=== PATIENT | male | born 1945 | race Caucasian/White ===

== ENCOUNTER 2022-04-30 16:32 | Observation (INO) ==
[2022-04-30 17:10] LABS: Hematocrit (blood only) 40.8 % (40.1-51.0); Hemoglobin 13.9 g/dl (14.0-18.0); Mean Corpuscular Hemoglobin 29.5 pg (25.0-34.0); Mean Corpuscular Hgb Conc 34.1 g/dL (32.0-36.0); Mean Corpuscular Volume 86.6 fL (80.0-100.0); Mean Platelet Volume 10.3 fL (9.4-12.4); Platelet Count 175 K/uL (130-400); RDW Coefficient of Variation 14.2 % (11.5-14.5); RDW Standard Deviation 44.8 fL (36.4-46.3); Red Blood Count 4.71 M/uL (4.63-6.08); White Blood Count 8.39 K/ul (4.8-10.8)
[2022-04-30 17:25] LABS: INR 1.1 (0.9-1.1); Partial Thromboplastin Time 28.8 Seconds (21.0-31.0); Prothrombin Time 11.3 Seconds (9.0-12.0)
[2022-04-30 17:38] LABS: Albumin Globulin Ratio 1.3 (0.9-2); Albumin Level 4.1 gm/dl (3.4-5.0); BUN Creatinine Ratio 23.6 (10-20); Bilirubin,Total 0.7 mg/dl (0.2-1.0); Calcium 9.5 mg/dl (8.5-10.1); Creatinine Clr Calc Pharmacy 89.5 ml/min; Est GFR (African American) 96.9 ml/min; Est GFR (Non-African American) 83.6 ml/min; Globulin 3.1 gm/dl (2.5-4.0); Magnesium 2.1 mg/dl (1.7-2.4); Potassium 4.5 mmol/L (3.5-5.1); Total Protein 7.2 gm/dl (6.0-8.3)
--- NOTE | 2022-04-30 17:41 | CT Scan Report ---
HEAD CT NONCONTRAST CT DOSE: 614.27 mGy.cm HISTORY: headache, dizziness x3 days TECHNIQUE: Multiaxial CT images of the head were performed without the use of intravenous contrast. A utomated exposure control was utilized for this study. A dose lowering technique was utilized adheri ng to the principles of ALARA. Comparison: None. Findings: The paranasal sinuses and mastoid air cells are clear. The calvarium and skull base are int act. There is no mass, hematoma, midline shift, acute infarct. White matter hypodensity is nonspecifi c but suggestive of microvascular ischemic change. The ventricles and sulci demonstrate mild age-rela raquel involutional changes. Impression: No acute intracranial abnormality. Atrophy and microvascular ischemic changes. ACT 112: Negative or not required by law. Electronically signed by: Tam Olsen M.D. 04/30/2022 5:40 PM
--- NOTE | 2022-04-30 18:39 | XRay Report ---
XR chest 1V portable HISTORY: dizziness, weakness COMPARISON: Chest 12/09/2020. FINDINGS: The lungs are clear. Cardiac silhouette is normal in size. No pleural effusions. No pneumot horax. Right shoulder prosthesis. Degenerative changes within the left shoulder. IMPRESSION: No acute process. ACT 112: Negative or not required by law. Electronically signed by: Tam Olsen M.D. 04/30/2022 6:37 PM
--- NOTE | 2022-04-30 18:51 | Emergency Department Note ---
Impression & Plan Stroke-like symptoms, Leg weakness, Headache ED Provider Note INFORMANT: Patient and significant other ED PROVIDER(S): Buck Walker MD CHIEF COMPLAINT: Strokelike symptoms PLAN: Disposition: Admitted Condition: Good Outpatient prescription management: none Referral: None MEDICAL DECISION MAKING: Patient presented due to concerns about stroke from PCP. On physical examination he did have asymmetric weakness in the lower extremities. Did not have any significant complaints of back pain or any neck pain. He did note a headache. He does not have a fever. He is not meningitic on examination. The patient had a negative head CT. His CBC, chemistry panel and LFTs were unrema rkable. Given the ambulatory issues and asymmetric weakness coupled with a headache further management in the hospital was deemed appropriate. Patient and are in agreement. [facility] The patient was evaluated in the ER and admitted for further management. Triage Nursing notes reviewed and agree them. Vital Signs: reviewed and remarkable for bradycardia. Record review indicates this is not changed from prior. Differential diagnosis: CVA, TIA, infection, dehydration, metabolic abnormality, hypo/hyperglycemia, electrolyte disturbance, anemia, hypoxia, cardiac sources, intracerebral event, toxicologic, neurologic, as well as other pathologies. Diagnostics interpreted by me: ECG: Twelve-lead ECG reveals sinus bradycardia 53 bpm. Sinus arrhythmia present. First-degree AV block. Right bundle branch block. No elevation. Cardiac Monitoring: Cardiac monitoring ordered by me: The patient was placed on continuous cardiac monitoring and observed. It revealed a sinus bradycardia at 48 bpm. Imaging studies: Head CT: A noncontrast CT scan of the head was performed and was negative for tumor, fracture, intracranial hemorrhage, or other acute pathology. HPI: The patient is a 76 year old male who presents to the Emergency Room with complaints of headache and weakness. This started about 3 days ago and is stable but persisting. The patient also notes the following associated symptoms, difficulty walking. The patient has found no relieving factors. Current pain is rated as 6/10. Patient states that he has been using ibuprofen intermittently. He denies any trauma. He was seen by his PCP and there was concerned about stroke due to weakness and ambulatory issues. Patient does have neuropathy but notes no changes there in the lower extremities. Pt denies LOC, fevers, chills, diaphoresis, visual changes, neck pain, chest pain, breathing difficulties, nausea, vomiting, abdominal pain, back pain, melena, hematochezia, urinary symptoms, lymphadenopathy, rash, or other complaints. ROS: See above HPI for pertinent positives & negatives. A total of 10 systems reviewed and were otherwise negative. PAST MEDICAL HISTORY:See Below , hypertension PAST SURGICAL HISTORY:See Below, FAMILY HISTORY:See Below SOCIAL HISTORY:See Below, HOME MEDICATIONS:See Below ALLERGIES:See Below VITALS:See Below PHYSICAL EXAMINATION: GENERAL: Awake, alert, well-appearing, in no distress HENT: Normocephalic, atraumatic. Oropharynx unremarkable. EYES: Normal conjunctiva. Sclera non-icteric. PERRLA. EOMI. NECK: Inspection normal. Non-tender. Supple. No nuchal rigidity. FROM. No m asses. RESPIRATORY: Clear to auscultation. No wheezes. No rales. Normal respiratory effort. CARDIAC: Normal rate. Normal rhythm. No murmurs. No rubs. Extremities warm and well perfused. Pulses equal. No JVD. GI: Soft, non-distended. No tenderness to palpation. No rebound or guarding. No masses. RECTAL: Deferred. MUSCULOSKELETAL: Atraumatic. Chest examination reveals no tenderness. The back is symmetrical on inspection without obvious abnormality. There is no CVA tenderness to palpation. No joint edema. LOWER EXTREMITIES: Calves are equal size bilaterally and non-tender. No edema. No discoloration. NEURO: Normal sensorium. Subjective tingling noted in both feet. There is some mild weakness in the left leg however more moderate weakness noted in the right leg. Slight drift. No upper extremity drift. Cranial nerves II through XII intact. SKIN: No rash or jaundice noted. Buck Walker MD Past Med/Surg History Medical History (Updated 04/30/22 @ 20:27 by Radha Juan PA-C) Anxiety and depression Bradycardia Generalized osteoarthritis Hearing difficulty History of syncope Remote episode several years ago > felt "related to dehydration" Hyperlipidemia Hypertension Macular degeneration Neuropathy PTSD (post-traumatic stress disorder) Surgical History H/O colonoscopy Colonoscopy (09/25/21): MAC at [facility]. Repeat 5 yrs H/O eye surgery MACULAR PUCKER H/O sinus surgery History of arthroscopy LEFT KNEE History of cataract surgery RT History of cholecystectomy History of herniorrhaphy History of knee replacement LEFT History of tonsillectomy History of tooth extraction S/P hip replacement LEFT Status post reverse total replacement of right shoulder (~12/2021) Family History Mother Liver cancer Colorectal cancer Father Pancreatic cancer Uncle Myocardial infarction Other No family history of adverse response to anesthesia Denies family history of Ovarian cancer Prostate cancer Diabetes Breast cancer Lung cancer Stroke Social History Smoking Status: Never smoker Second Hand Exposure: No; Hx Alcohol Use: No Hx Substance Use: No Preferred Language: Serbian Communication Ability: Effective Visual Impairment: Limited Hearing Ability: Normal Patrol Mother Required: No Beliefs That Will Affect Care: None marital status: Current Living Situation: Spouse current occupational status: retired How many Children do You have: 0 How many Children do You have Comment: 3 step children Feels Safe at Home: Yes Safety Concerns: Feels Safe At This Time Childhood Exposure to Second-Hand Smoke: Yes caffeine: Yes Dental Care, Regularly: No Physical Activity Frequency: Daily Physical Activity Frequency Comment: walks twice a day Seatbelt Use: always Sunscreen Use: No (wears a hat) Assistive Devices: None Allergies Allergies Allergy/AdvReac Type Severity Reaction Status Date / Time Penicillins Allergy Severe Anaphylaxis Verified 04/30/22 15:16 oxycodone AdvReac gi upset Verified 04/30/22 15:16 Home Meds Home Medications Medication Instructions Recorded Confirmed vit C 250 mg-vit E 90 mg-zinc 40 1 tab PO BID 04/30/19 04/30/22 mg-copper 1 [id number] capsule (PreserVision AREDS-2) atorvastatin 20 mg tablet 20 mg PO QAM 09/21/21 04/30/22 folic acid 1 mg tablet 1 mg PO QAM 09/21/21 04/30/22 ibuprofen 200 mg tablet (Advil) 200 mg PO QAM 09/21/21 04/30/22 sertraline 100 mg tablet (Zoloft) 200 mg PO QAM 09/21/21 04/30/22 valsartan 160 mg tablet 160 mg PO QAM 09/21/21 04/30/22 cholecalciferol (vitamin D3) 50 50 mcg PO QAM 11/26/21 04/30/22 mcg (2,000 unit) capsule naltrexone 50 mg tablet 50 mg PO QAM 11/26/21 04/30/22 omega-3 fatty acids 2,000 mg PO QAM 11/26/21 04/30/22 Previous Rx's Medication Instructions Recorded thiamine HCl (vitamin B1) 100 mg 100 mg PO QAM #90 tabs 01/05/21 tablet cyanocobalamin (vitamin B-12) 1,000 mcg subcut MONTHLY #1 ea 06/08/21 1,000 mcg/mL injection kit amlodipine 10 mg tablet 10 mg PO QAM #90 tabs 01/19/22 Results & Data (ED) Vital Signs Vital Signs - 24 hr 04/30/22 16:41 04/30/22 18:12 Temperature 36.4 C L Temperature Source Oral Pulse Rate 58 L Pulse Rate [Left Finger] 48 L Respiratory Rate 18 17 Respiratory Effort / Characteristics Non-Labored Non-Labored Respiratory Depth Normal Normal Blood Pressure 107/68 Blood Pressure [Right Arm] 129/64 Blood Pressure Mean 81 Blood Pressure Mean [Right Arm] 85 Blood Pressure Position Sitting Pulse Oximetry 94 95 Oxygen Delivery Method Room Air Room Air Sepsis Recent Fever Within 48 Hours No Sepsis New/Unexplained Change in Mental Status No Sepsis Action Taken by Nursing No Action Required Laboratory Data Result diagrams: 04/30/22 17:02 04/30/22 17:02 Lab Results 04/30/22 04/30/22 04/30/22 Range/Units 17:02 17:02 17:02 WBC 8.39 (4.8-10.8) K/ul RBC 4.71 (4.63-6.08) M/uL Hgb 13.9 L (14.0-18.0) g/dl Hct 40.8 (40.1-51.0) % MCV 86.6 (80.0-100.0) fL MCH 29.5 (25.0-34.0) pg MCHC 34.1 (32.0-36.0) g/dL RDW Std Deviation 44.8 (36.4-46.3) fL RDW Coeff of Donnell 14.2 (11.5-14.5) % Plt Count 175 (130-400) K/uL MPV 10.3 (9.4-12.4) fL PT 11.3 (9.0-12.0) Seconds INR 1.1 (0.9-1.1) APTT 28.8 (21.0-31.0) Seconds PTT Ratio 1.0 Sodium 140 (136-145) mmol/L Potassium 4.5 (3.5-5.1) mmol/L Chloride 107 (98-107) mmol/L Carbon Dioxide 25 (21-32) mmol/L Anion Gap 8 (3-11) BUN 21 (6-23) mg/dl Creatinine 0.89 (0.6-1.4) mg/dl Est Cr Clr Drug Dosing 89.5 ml/min Est GFR ( Amer) 96.9 ml/min Est GFR (Non-Af Amer) 83.6 ml/min BUN/Creatinine Ratio 23.6 H (10-20) Glucose 95 (70-99(Fasting)) mg/dl Calcium 9.5 (8.5-10.1) mg/dl Magnesium 2.1 (1.7-2.4) mg/dl Total Bilirubin 0.7 (0.2-1.0) mg/dl AST 20 (13-39) U/L ALT 14 (7-52) U/L Alkaline Phosphatase 77 (34-104) U/L Total Protein 7.2 (6.0-8.3) gm/dl Albumin 4.1 (3.4-5.0) gm/dl Globulin 3.1 (2.5-4.0) gm/dl Albumin/Globulin Ratio 1.3 (0.9-2) TSH (0.300-4.500) uIu/ml Lyme Disease IgG Ab (Negative) Lyme Disease IgM Ab (Negative) SARS-CoV-2 (PCR) SARS-CoV-2, RNA, NAAT (NEGATIVE) 04/30/22 04/30/22 04/30/22 Range/Units 17:02 17:02 18:10 WBC (4.8-10.8) K/ul RBC (4.63-6.08) M/uL Hgb (14.0-18.0) g/dl Hct (40.1-51.0) % MCV (80.0-100.0) fL MCH (25.0-34.0) pg MCHC (32.0-36.0) g/dL RDW Std Deviation (36.4-46.3) fL RDW Coeff of Donnell (11.5-14.5) % Plt Count (130-400) K/uL MPV (9.4-12.4) fL PT (9.0-12.0) Seconds INR (0.9-1.1) APTT (21.0-31.0) Seconds PTT Ratio Sodium (136-145) mmol/L Potassium (3.5-5.1) mmol/L Chloride (98-107) mmol/L Carbon Dioxide (21-32) mmol/L Anion Gap (3-11) BUN (6-23) mg/dl Creatinine (0.6-1.4) mg/dl Est Cr Clr Drug Dosing ml/min Est GFR ( Amer) ml/min Est GFR (Non-Af Amer) ml/min BUN/Creatinine Ratio (10-20) Glucose (70-99(Fasting)) mg/dl Calcium (8.5-10.1) mg/dl Magnesium (1.7-2.4) mg/dl Total Bilirubin (0.2-1.0) mg/dl AST (13-39) U/L ALT (7-52) U/L Alkaline Phosphatase (34-104) U/L Total Protein (6.0-8.3) gm/dl Albumin (3.4-5.0) gm/dl Globulin (2.5-4.0) gm/dl Albumin/Globulin Ratio (0.9-2) TSH 1.294 (0.300-4.500) uIu/ml Lyme Disease IgG Ab Negative (Negative) Lyme Disease IgM Ab Negative (Negative) SARS-CoV-2 (PCR) Cancelled SARS-CoV-2, RNA, NAAT (NEGATIVE) 04/30/22 Range/Units 18:30 WBC (4.8-10.8) K/ul RBC (4.63-6.08) M/uL Hgb (14.0-18.0) g/dl Hct (40.1-51.0) % MCV (80.0-100.0) fL MCH (25.0-34.0) pg MCHC (32.0-36.0) g/dL RDW Std Deviation (36.4-46.3) fL RDW Coeff of Donnell (11.5-14.5) % Plt Count (130-400) K/uL MPV (9.4-12.4) fL PT (9.0-12.0) Seconds INR (0.9-1.1) APTT (21.0-31.0) Seconds PTT Ratio Sodium (136-145) mmol/L Potassium (3.5-5.1) mmol/L Chloride (98-107) mmol/L Carbon Dioxide (21-32) mmol/L Anion Gap (3-11) BUN (6-23) mg/dl Creatinine (0.6-1.4) mg/dl Est Cr Clr Drug Dosing ml/min Est GFR ( Amer) ml/min Est GFR (Non-Af Amer) ml/min BUN/Creatinine Ratio (10-20) Glucose (70-99(Fasting)) mg/dl Calcium (8.5-10.1) mg/dl Magnesium (1.7-2.4) mg/dl Total Bilirubin (0.2-1.0) mg/dl AST (13-39) U/L ALT (7-52) U/L Alkaline Phosphatase (34-104) U/L Total Protein (6.0-8.3) gm/dl Albumin (3.4-5.0) gm/dl Globulin (2.5-4.0) gm/dl Albumin/Globulin Ratio (0.9-2) TSH (0.300-4.500) uIu/ml Lyme Disease IgG Ab (Negative) Lyme Disease IgM Ab (Negative) SARS-CoV-2 (PCR) SARS-CoV-2, RNA, NAAT NEGATIVE (NEGATIVE) Administered Medications Discontinued Medications Acetaminophen (Acetaminophen 325 Mg Tab) 650 mg PO NOW STA Stop: 04/30/22 20:35 Last Admin: 04/30/22 20:47 Dose: 650 mg Documented By: SHANE Gadobutrol (Gadobutrol 65ml Vial) 10 ml IV ONCE ONE Stop: 05/01/22 00:07 Last Admin: 05/01/22 00:06 Dose: 10 ml Documented By: RADHA Imaging Data Radiologist's Impression: Chest X-Ray 04/30/22 16:47 XR chest 1V portable HISTORY: dizziness, weakness COMPARISON: Chest 12/09/2020. FINDINGS: The lungs are clear. Cardiac silhouette is normal in size. No pleural effusions. No pneumothorax. Right shoulder prosthesis. Degenerative changes within the left shoulder. IMPRESSION: No acute process. ACT 112: Negative or not required by law. Electronically signed by: Tam Olsen M.D. 04/30/2022 6:[address] 04/30/22 16:[address] DOSE: 614.27 mGy.cm HISTORY: headache, dizziness x3 days TECHNIQUE: Multiaxial CT images of the head were performed without the use of intravenous contrast. Automated exposure control was utilized for this study. A dose lowering technique was utilized adhering to the principles of ALARA. Comparison: None. Findings: The paranasal sinuses and mastoid air cells are clear. The calvarium and skull base are intact. There is no mass, hematoma, midline shift, acute infarct. White matter hypodensity is nonspecific but suggestive of microvascular ischemic change. The ventricles and sulci demonstrate mild age-related involutional changes. Impression: No acute intracranial abnormality. Atrophy and microvascular ischemic changes. ACT 112: Negative or not required by law. Electronically signed by: Tam Olsen M.D. 04/30/2022 5:40 PM Discharge Plan Visit Data Chief Complaint: Referred by Doctor Stated Complaint: REF BY , HEADACHE, DIZZINESS ED Provider: Buck Walker Discharge Problem: Stroke-like symptoms, Leg weakness, Headache Patient Disposition: Admitted As Inpatient Discharge Instructions Interventions: ED Discharge Assessment Last Done: 04/30/22 22:12
--- NOTE | 2022-04-30 18:59 | History & Physical Report ---
Date of Service April 30, 2022 Assessment & Plan (1) Stroke-like symptoms: Plan: - Presented upon referral for PCP for concerns for stroke due to 3 days of headache, left lower extremity weakness, abnormal gait. - Here, patient has slight LLE weakness, slight difficulty with left heel to little however he has a hip and knee replacement on this side so it seems more like a mechanical limitation rather than actual weakness. He reports a slight decrease in sensation on R face, arm, and leg. He has no other neuro findings on exam suspicious for a TIA/CVA. Given the symptoms have been going on for days, would except to see evidence of a stroke on CT. His decreased sensation and gait abnormalities seem to be more consistent with a neuropathy. No history of cancer to raise concern for brain met dz. No back pain or leg numbness/tingling to indicate radiculopathy. - CT without contrast in ED without evidence of acute process, including hemorrhage, mass, midline shift, ischemic infarct. - MRI with MRA head/neck tomorrow. - Echo in a.m. - CBC, BMP, HbA1c, lipid panel in a.m. - PT, OT to evaluate in a.m. - Patient is already on a statin, will increase dose based on lipid panel in AM. - Telemetry for 24 hours, evaluate for episodes of atrial fibrillation. - Consult placed to neurology to evaluate patient for CVA vs neuropathy. - With reports of right eye transient monocular vision loss ~ 1 month ago, will check ESR with AM labs. If elevated without other cause, could place patient on trial of steroids. - Checking TSH, B12, folate, lyme for other possible causes of REDDY/fatigue/neuropathy. (2) Headache: Plan: - b/l, throbbing, persistent 7/10 for at least 3 days. Without visual changes, headache, neck stiffness, meningeal signs. Did have transient right monocular vision loss 1 month ago. - ESR with morning labs to workup possible temporal arteritis/PMR. - PRN Tylenol, with a dose ordered in ED. Looking to avoid opioids. Holding off on NSAIDs now while pursuing CVA workup. (3) Neuropathy: Plan: - Continue B12 supplementation. Patient also was doing acupuncture for this at one point, planning to restart as it has previously helped. - CBC, CMP, lyme, TSH all wnl. - PT/OT to eval patient. (4) Bradycardia: Plan: - HR in 4050s, per previous records, symptoms baseline since the beginning of the year. He has been generally weak for a couple weeks, however denies lightheadedness, dizziness, presyncope or syncope, chest pain, shortness of breath. - EKG today with sinus bradycardia and first-degree AV block, right bundle branch block which was also seen on EKG from November. - Check for Lyme as above--negative. (5) Hypertension: Plan: - Patient notes his blood pressures this week have been quite high, consistently above 140, usually in the [id number] range occasionally systolic over 200. - Normotensive here, 138/69 now. - Continue on valsartan 160 mg daily, Norvasc 10 mg daily. (6) Hyperlipidemia: Plan: - Continue atorvastatin 20 gm daily. (7) Depression: Plan: - With PTSD, anxiety. [facility] - History of insomnia, although not currently requiring any medications for this. - Continue Zoloft 200 mg daily. (8) Alcohol use disorder: Plan: - Last drink 10 months ago. - Continue B12 (IM injections monthly) and folate supplementation, will check these levels in a.m. - Continue naltrexone. (9) Fatty liver: Plan: - History of, with previous alcohol abuse. - LFTs within normal limits. Continue to follow with AM labs. Plan - Admit to med/tele. - SCDS for VTE ppx. - Full Code. History of Present Illness Chief Complaint: ongoing headache, gait abnormality, fatigue Primary Care Provider: Olu Magallanes DO Reynold Yeung is a 76-year-old male with a PMH significant for hypertension, hyperlipidemia, PTSD, depression, anxiety, alcohol use disorder, fatty liver disease who presents today as a recommendation of his PCP for trouble walking and headache. He has had a constant, throbbing bilateral headache for the past 3 days above and behind his eyes. He is not getting any worse or better. He has tried drinking water, sleeping, and Tylenol at home without any alleviation. He is also been getting more fatigued for the past several days, noting that he is not keeping up with his as he used to do when walking the dog and is sleeping throughout the night and then between lunch and dinner, still feeling fatigued despite this. He has bilateral lower extremity numbness and has been evaluated and treated for neuropathy previously, currently getting B12 supplementations and previously benefitted from acupuncture. He feels it was better at one time, but is now getting worse again. He also describes a gait disturbance, stating he is walking "funny" and has a hard time picking his feet up getting it over the rugs in his home. He is outside a lot but denies known tick bites, rash, fever/chills. He has not noticed any focal weakness or numbness, denies speech difficulties, vomiting. He had an incident of transient right vision loss maybe about a month ago in the middle of the night he was getting up to the bathroom, however her woke up and vision was back at his baseline has not had recurrence. He has not had any falls. His blood pressures been elevated at home, systolic between [id number], occasionally near 200. He denies chest pain, palpitation, shortness of breath, cough. Upon presentation to the ED, he HR 4050s, per previous records this is baseline for the past year. Normotensive, SPO2 >95% on room air, afebrile. Labs significant for Hgb 13.1, about baseline. Labs otherwise unremarkable, no leukocytosis, electrolyte abnormalities, renal function at baseline, without transaminitis. Lyme is pending. CT unremarkable for acute process, specifically no evidence of mass, hemorrhage, midline shift, acute infarct. Nonspecific age- related microvascular changes and atrophy are seen. CXR without evidence for acute process. Allergies Allergy/AdvReac Type Severity Reaction Status Date / Time Penicillins Allergy Severe Anaphylaxis Verified 04/30/22 15:16 oxycodone AdvReac gi upset Verified 04/30/22 15:16 Home Medications Medication Instructions Recorded Confirmed Type vit C 250 mg-vit E 90 mg-zinc 40 1 tab PO BID 04/30/19 04/30/22 History mg-copper 1 [id number] capsule (PreserVision AREDS-2) thiamine HCl (vitamin B1) 100 mg 100 mg PO QAM #90 tabs 01/05/21 04/30/22 Rx tablet cyanocobalamin (vitamin B-12) 1,000 mcg subcut MONTHLY #1 ea 06/08/21 04/30/22 Rx 1,000 mcg/mL injection kit atorvastatin 20 mg tablet 20 mg PO QAM 09/21/21 04/30/22 History folic acid 1 mg tablet 1 mg PO QAM 09/21/21 04/30/22 History ibuprofen 200 mg tablet (Advil) 200 mg PO QAM 09/21/21 04/30/22 History sertraline 100 mg tablet (Zoloft) 200 mg PO QAM 09/21/21 04/30/22 History valsartan 160 mg tablet 160 mg PO QAM 09/21/21 04/30/22 History cholecalciferol (vitamin D3) 50 50 mcg PO QAM 11/26/21 04/30/22 History mcg (2,000 unit) capsule naltrexone 50 mg tablet 50 mg PO QAM 11/26/21 04/30/22 History omega-3 fatty acids 2,000 mg PO QAM 11/26/21 04/30/22 History amlodipine 10 mg tablet 10 mg PO QAM #90 tabs 01/19/22 04/30/22 Rx gabapentin 100 mg capsule 100 mg PO BID 5 days #10 caps 05/01/22 Rx Past Med/Surg History Medical History Anxiety and depression Bradycardia Generalized osteoarthritis Hearing difficulty History of syncope Remote episode several years ago > felt "related to dehydration" Hyperlipidemia Hypertension Macular degeneration Neuropathy PTSD (post-traumatic stress disorder) Surgical History H/O colonoscopy Colonoscopy (09/25/21): MAC at [facility]. Repeat 5 yrs H/O eye surgery MACULAR PUCKER H/O sinus surgery History of arthroscopy LEFT KNEE History of cataract surgery RT History of cholecystectomy History of herniorrhaphy History of knee replacement LEFT History of tonsillectomy History of tooth extraction S/P hip replacement LEFT Status post reverse total replacement of right shoulder (~12/2021) Family History Mother Liver cancer Colorectal cancer Father Pancreatic cancer Uncle Myocardial infarction Other No family history of adverse response to anesthesia Denies family history of Ovarian cancer Prostate cancer Diabetes Breast cancer Lung cancer Stroke Social History Smoking Status: Never smoker Second Hand Exposure: No; Hx Alcohol Use: No Hx Substance Use: No Preferred Language: Sinhala Communication Ability: Effective Visual Impairment: Limited Hearing Ability: Normal Personnel Manager Required: No Beliefs That Will Affect Care: None marital status: Current Living Situation: Spouse current occupational status: retired How many Children do You have: 0 How many Children do You have Comment: 3 step children Feels Safe at Home: Yes Childhood Exposure to Second-Hand Smoke: Yes caffeine: Yes Dental Care, Regularly: No Physical Activity Frequency: Daily Physical Activity Frequency Comment: walks twice a day Seatbelt Use: always Sunscreen Use: No (wears a hat) Assistive Devices: None Review of Systems Review of Systems: Constitutional: general weakness and fatigue; no fever/chills, myalgias, anorexia, night sweats Eyes: right eye transient vision loss x 1 month ago without recurrence; No diplopia, no worsening or blurred vision ENT: normal hearing, no trouble swallowing Respiratory: No cough, sputum, dyspnea at rest or on exertion Cardiovascular: No chest pain, tightness or palpitations Abdomen: No pain, nausea, vomiting, diarrhea or constipation : Denies dysuria, hematuria, increased urgency/frequency, urinary retention Musculoskeletal: difficulty walking, b/l LE numbness; No joint pain, calf pain, swelling Neurologic: No focal weakness or balance problems Psychiatric: No anxiety or depression Skin: No rash or itch Physical Exam Physical Exam: General: awake, alert, no apparent distress Head: Normocephalic, atraumatic ENT: PERRL, EOMI, no pharyngeal exudate, mucous membranes moist Chest: Clear to auscultation, on room air, no adventitious breath sounds Cardiac: bradycardic rate and rhythm, no murmur, no JVD, normal peripheral pulses, good capillary refill Abdominal: NABS x 4 quadrants, soft, nontender to palpation, no rebound, guarding or tenderness Extremities: Normal inspection, no peripheral edema or erythema, calfs nontender to palpation Psych: Normal mood and affect Neuro: AAO x 3, strength intact bilaterally and rated 5/5, no motor deficits, speech is clear, L > R sensation Skin: no rash or erythema Results & Data Results & Data ([facility]) Vital Signs (Past 12 Hours) Vital Signs Temp Pulse Pulse Resp BP BP Pulse Ox 04/30/22 18:12 48 L 17 129/64 95 04/30/22 16:41 36.4 C L 58 L 18 107/68 94 O2 Del Method 04/30/22 18:12 Room Air 04/30/22 16:41 Room Air Laboratory Results Abnormal lab results 04/30/22 04/30/22 Range/Units 17:02 17:02 Hgb 13.9 L (14.0-18.0) g/dl BUN/Creatinine Ratio 23.6 H (10-20) Diagnostic Findings Chest X-Ray 04/30/22 16:47 XR chest 1V portable HISTORY: dizziness, weakness COMPARISON: Chest 12/09/2020. FINDINGS: The lungs are clear. Cardiac silhouette is normal in size. No pleural effusions. No pneumothorax. Right shoulder prosthesis. Degenerative changes within the left shoulder. IMPRESSION: No acute process. ACT 112: Negative or not required by law. Electronically signed by: Tam Olsen M.D. 04/30/2022 6:[address] 04/30/22 16:[address] DOSE: 614.27 mGy.cm HISTORY: headache, dizziness x3 days TECHNIQUE: Multiaxial CT images of the head were performed without the use of intravenous contrast. Automated exposure control was utilized for this study. A dose lowering technique was utilized adhering to the principles of ALARA. Comparison: None. Findings: The paranasal sinuses and mastoid air cells are clear. The calvarium and skull base are intact. There is no mass, hematoma, midline shift, acute infarct. White matter hypodensity is nonspecific but suggestive of microvascular ischemic change. The ventricles and sulci demonstrate mild age-related involutional changes. Impression: No acute intracranial abnormality. Atrophy and microvascular ischemic changes. ACT 112: Negative or not required by law. Electronically signed by: Tam Olsen M.D. 04/30/2022 5:40 PM ECG Additional Comments: Sinus bradycardia with marked sinus arrhythmia with 1st degree A-V block Right bundle branch block Abnormal ECG When compared with ECG of 09-DEC-2021 10:50, No significant change was found. Code Status & VTE Plan Code Status Full Code. Supervising Physician Co-Signing Physician Notes Attending addendum: I have physically seen this patient, have supervised the SE's activities, and agree with the H&P unless as otherwise noted. Assessment and Plan: Strokelike symptoms- The patient will be admitted to telemetry for serial cardiac enzymes, serial EK G's, cardiac rhythm monitoring and a 2-D echocardiogram with Dopplers. CT head without contrast negative for acute process MRI/MRA ordered and pending Stroke that tPA order set Consult PT/OT/speech/neurology History of monocular vision loss approximately 1 month ago, would be concerned about possible PMR/temporal arteritis Trial of steroids may be indicated if headache symptoms persist, or should develop recurrent visual symptoms Neurology consult as noted Hypertension- Continue valsartan and Norvasc. Permissive hypertension not indicated Remaining orders and notations as noted PG Care Time/CCT Total # of Minutes Spent Total Time Spent with Patient: Total time spent is greater than 50% in coordination of care (as documented) at patient's floor/unit and/or counseling patient: Coding Level of Care Code 42834 Initial Inpt Care Lvl 3 Diagnoses Stroke-like symptoms R29.90 Headache R51.9 Neuropathy G62.9 Bradycardia R00.1 Hypertension I10 Hyperlipidemia E78.5 Depression F32.9 Alcohol use disorder Fatty liver K76.0
[2022-04-30 19:46] LABS: Appearance Urine Clear (Clear); Bilirubin Urine Negative (Negative); Blood Urine Negative (Negative); Color Urine Dark Yellow; Glucose Urine UA Negative (Negative); Ketones Urine Trace (Negative); Leukocyte Esterase Urine Negative (Negative); Nitrite Urine Negative (Negative); Protein Urine Negative (Negative); Specific Gravity Urine 1.027 (1.000-1.030); Urobilinogen Urine Negative (Negative); pH Urine 5.5 (4.5-7.5)
[2022-04-30 19:55] LABS: Lyme Ab IgG w/WB Rflx Negative (Negative); Lyme Ab IgM w/WB Rflx Negative (Negative)
[2022-04-30] MEDS ORDERED: ACETAMINOPHEN 325 MG TAB PO STA (20:34)
[2022-04-30] MEDS ORDERED: ONDANSETRON INJ 2 MG/ML 2 ML VIAL IV PRN (22:00)
[2022-04-30] MEDS ORDERED: ACETAMINOPHEN 325 MG TAB PO PRN (22:00)
[2022-04-30] MEDS ORDERED: PHARMACIST DISCHARGE MED REC CONSULT PRN (22:00)
[2022-04-30] MEDS ORDERED: POLYETHYLENE (MIRALAX) 17 GM PACK PO PRN (22:00)
[2022-05-01] MEDS ORDERED: GADOBUTROL 65ML VIAL IV ONE (00:06)
[2022-05-01 05:56] LABS: Alanine Aminotransferase 13 U/L (7-52); Albumin Globulin Ratio 1.5 (0.9-2); Albumin Level 3.7 gm/dl (3.4-5.0); Alkaline Phosphatase 69 U/L (34-104); Anion Gap 6 (3-11); Aspartate Aminotransferase 17 U/L (13-39); BUN Creatinine Ratio 24.7 (10-20); Bilirubin,Total 0.6 mg/dl (0.2-1.0); Blood Urea Nitrogen 19 mg/dl (6-23); C Reactive Protein < 0.50 mg/dl (0-0.5); Carbon Dioxide 28 mmol/L (21-32); Chloride 108 mmol/L (98-107); Chol HDL Ratio 2.9 (0-5); Cholesterol 97 mg/dl (0-200); Creatinine Clr Calc Pharmacy 103.3 ml/min; Est GFR (African American) 102.9 ml/min; Est GFR (Non-African American) 88.8 ml/min; Globulin 2.5 gm/dl (2.5-4.0); Glucose 101 mg/dl (70-99(Fasting)); HDL Cholesterol 34 mg/dl; LDL Cholesterol Calculated 50 mg/dl; Potassium 4.1 mmol/L (3.5-5.1); Sodium 142 mmol/L (136-145); Total Protein 6.2 gm/dl (6.0-8.3); Triglycerides 65 mg/dl (0-150); VLDL Cholesterol 13 mg/dl (0-30)
[2022-05-01 06:10] LABS: Folate (Folic Acid) > 22.30 ng/ml (>5.38)
[2022-05-01 06:11] LABS: Vitamin B12 547 pg/ml (180-914)
[2022-05-01 06:29] LABS: Basophils # (auto) 0.06 K/uL (0-0.2); Eosinophils % (auto) 1.7 %; Hematocrit (blood only) 38.1 % (40.1-51.0); Hemoglobin 12.7 g/dl (14.0-18.0); Immature Granulocytes # (auto) 0.01 K/uL (0.00-0.02); Immature Granulocytes % (auto) 0.2 %; Lymphocytes # (auto) 1.93 K/uL (1.2-3.4); Lymphocytes % (auto) 33.2 %; Mean Corpuscular Hemoglobin 28.7 pg (25.0-34.0); Mean Corpuscular Hgb Conc 33.3 g/dL (32.0-36.0); Mean Corpuscular Volume 86.2 fL (80.0-100.0); Monocytes % (auto) 8.6 %; Neutrophils # (auto) 3.22 K/uL (1.4-6.5); Neutrophils % (auto) 55.3 %; Platelet Count 157 K/uL (130-400); Platelet Estimate Normal (Normal); RDW Coefficient of Variation 14.2 % (11.5-14.5); RDW Standard Deviation 44.3 fL (36.4-46.3); Red Blood Count 4.42 M/uL (4.63-6.08); White Blood Count 5.82 K/ul (4.8-10.8)
--- NOTE | 2022-05-01 06:42 | Magnetic Resonance Report ---
Brain MRI WITH AND WITHOUT CONTRAST HISTORY: Headache. Weakness. TECHNIQUE: Multiplanar multisequence MRI of the brain was performed both before and after the intrave nous administration of contrast. COMPARISON STUDY: Head CT 04/30/2022. FINDINGS: There is no mass, hematoma, midline shift, or acute infarct. The paranasal sinuses are deon r. The mastoid air cells are clear. The ventricles and sulci demonstrate mild age-related involutiona l changes. A few scattered foci of T2 hyperintensity seen within the periventricular and subcortical white matter are nonspecific but suggestive of mild microvascular ischemic changes. Loss of the marilyn l flow-void within the intracranial internal carotid artery consistent with occlusion. This is likely chronic given the lack of an acute infarct. Prior right lens replacement. No abnormal enhancement. IMPRESSION: 1. 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 2. No acute infarct or intracranial hemorrhage. 3. Atrophy and mild microvascular ischemic changes. ACT 112: Negative or not required by law. Electronically signed by: Tam Olsen M.D. 05/01/2022 6:41 AM
--- NOTE | 2022-05-01 06:46 | Magnetic Resonance Report ---
Brain MRA HISTORY: CVA TECHNIQUE: 3-D [id number] MRA of the brain was performed without contrast. COMPARISON STUDY: None. FINDINGS: Occluded right internal carotid artery. Visualized left intracranial internal carotid arter y, distal vertebral arteries, and basilar artery are widely patent. There is no significant stenosis, occlusion, or aneurysm seen within the bilateral ACAs, MCAs, or automatic washer mechanic. IMPRESSION: 1. Occluded right internal carotid artery. 2. No significant stenosis, occlusion, or aneurysm within the bilateral ACAs, MCAs, or automatic washer mechanic. ACT 112: Negative or not required by law. Electronically signed by: Tam Olsen M.D. 05/01/2022 6:44 AM
--- NOTE | 2022-05-01 06:48 | Magnetic Resonance Report ---
NECK CTA HISTORY: Headache. Weakness. TECHNIQUE: Multiaxial CT images of the neck were performed following the intravenous administration o f contrast to evaluate the major cervical vessels. Maximum intensity projection images were also obta ined. All measurements were calculated based on NASCET criteria. A dose lowering technique was utili zed adhering to the principles of ALARA. COMPARISON STUDY: None. FINDINGS: The aortic arch and proximal great vessels are widely patent. There is no significant sten osis, occlusion, or dissection identified within the bilateral common carotid, left internal carotid, or vertebral arteries. There is complete occlusion of the right internal carotid artery. IMPRESSION: 1. Complete occlusion of the right internal carotid artery. 2. No significant stenosis, occlusion, or dissection identified within the left carotid or vertebral arteries. ACT 112: Negative or not required by law. Electronically signed by: Tam Olsen M.D. 05/01/2022 6:47 AM
--- NOTE | 2022-05-01 07:01 | Hospitalist Progress Note ---
Date of Service May 01, 2022 Assessment & Plan (1) Stroke-like symptoms: Plan: - Presented upon referral for PCP for concerns for stroke due to 3 days of headache, left lower extremity weakness, abnormal gait. - Slight LLE weakness, could be mechanical secondary to left hip/knee replacement. Initially reported slight decrease in sensation on R face, arm, but this morning only reported decreased sensation in right leg which he states is chronic. No other pertinent neurologic findings on exam suggestive of CVA. Decreased sensation and gait abnormalities could be secondary to neuropathy. No history of cancer to raise concern for brain met dz. No back pain or leg numbness/tingling to indicate radiculopathy. - CT without contrast in ED without evidence of acute process, including hemorrhage, mass, midline shift, ischemic infarct. - MRI with MRA head/neck showed complete occlusion of the right internal carotid artery. No acute infarct or intracranial hemorrhage. Atrophy and mild microvascular ischemic changes. - echo pending - HbA1c= 5.6 - PT, OT to evaluate - Telemetry for 24 hours, evaluate for episodes of atrial fibrillation. - Consult placed to neurology to evaluate patient for CVA vs neuropathy - With reports of right eye transient monocular vision loss ~ 1 month ago, will check ESR= 22 with AM labs. - Checking TSH, B12, folate, lyme all within normal limits (2) Headache: Plan: - b/l, throbbing, persistent 7/10 for at least 3 days. Without visual changes, headache, neck stiffness, meningeal signs. Did have transient right monocular vision loss 1 month ago. - ESR= 22 - PRN Tylenol, with a dose ordered in ED. Looking to avoid opioids. (3) Neuropathy: Plan: - Continue B12 supplementation. Patient also was doing acupuncture for this at one point, planning to restart as it has previously helped. - CBC, CMP, lyme, TSH all wnl. - PT/OT to eval patient. (4) Bradycardia: Plan: - HR in 4050s, per previous records, symptoms baseline since the beginning of the year. He has been generally weak for a couple weeks, however denies lightheadedness, dizziness, presyncope or syncope, chest pain, shortness of breath. - EKG today with sinus bradycardia and first-degree AV block, right bundle branch block which was also seen on EKG from November. - Check for Lyme as above--negative. (5) Hypertension: Plan: - Patient notes his blood pressures this week have been quite high, consistently above 140, usually in the 139637 range occasionally systolic over 200. - Normotensive here, 131/73 now. - Continue on valsartan 160 mg daily, Norvasc 10 mg daily. (6) Hyperlipidemia: Plan: - Continue atorvastatin 20 gm daily. - Lipid Panel: total cholesterol= 97, LDL= 50, HDL= 34 (7) Depression: Plan: - With PTSD, anxiety. [facility] - History of insomnia, although not currently requiring any medications for this. - Continue Zoloft 200 mg daily. (8) Alcohol use disorder: Plan: - Last drink 10 months ago. - Continue B12 (IM injections monthly) and folate supplementation - Continue naltrexone. (9) Fatty liver: Plan: - History of, with previous alcohol abuse. - LFTs within normal limits. Continue to follow with AM labs. Plan - Admit to med/tele. - SCDS for VTE ppx. - Full Code. Admission and Anticipated Discharge Date Admission Date: April 30, 2022 Subjective 76 year old male with a past medical history of HTN, HLD, PTSD, depression, anxiety, fatty liver disease, neuropathy and alcohol use disorder. Presented yesterday per recommendation of his PCP trouble walking and headache for the past 3 days with concerns for stroke. CT head was unremarkable for acute process. No events overnight. He states that his headache is improved, but still present. Frontal, B/L throbbing. Has been present for the last several days. Says he has been having trouble with gait for many months, which he relates to neuropathy. He stopped drinking alcohol 10 months ago, prior to that was drinking 1.5 L bottle of wine daily. Has been getting monthly B12 injections and acupuncture for neopathy. Does have some decreased sensation in right leg, but this is not new. His gait has been improving over the past couple of months. Stays he did have some increased left sided weakness over the past couple of days, has had both his left knee and hip replaced. Denies chest pain, dyspnea, blurred vision, nausea, vomiting, abdominal pain, weakness. Physical Exam Physical Exam: Constitutional: well-appearing, no acute distress HEENT: NCAT, no conjunctival injection CV: regular rhythm, no murmur appreciated, extremities well-perfused, no LE edema Resp: CTABL, no wheezes/rales/rhonchi appreciated, no increased work of breathing GI: soft, nondistended, nontender, BS normoactive MSK: no gross deformities appreciated Skin: warm, dry, no rash appreciated Neuro: alert, oriented, no focal neurologic deficit appreciated. Decreased sensation right LE compared to left. Strength 5/5 upper and lower extremities. Cranial nerves II-XII grossly intact. Results & Data Results & Data ([facility]) Vital Signs (Past 12 Hours) Vital Signs Temp Pulse Pulse Resp BP BP Pulse Ox 05/01/22 06:00 45 L 16 138/65 97 05/01/22 02:01 43 L 10 L 89 L 05/01/22 02:01 112/55 L 05/01/22 02:00 51 L 13 84 L 05/01/22 01:00 45 L 15 92 05/01/22 00:24 48 L 16 95 05/01/22 00:23 127/69 04/30/22 23:13 47 L 16 90 04/30/22 23:00 47 L 14 91 04/30/22 23:00 111/59 L 04/30/22 22:34 43 L 15 93 04/30/22 22:34 146/75 H 05/01/22 00:26 42 L 05/01/22 00:26 36.6 C 42 L 17 127/69 95 04/30/22 22:00 55 L 21 128/85 97 04/30/22 22:02 128/85 04/30/22 22:02 50 L 17 92 04/30/22 22:00 92 04/30/22 21:30 46 L 17 92 04/30/22 21:30 140/64 04/30/22 21:01 50 L 14 94 04/30/22 21:01 147/88 H 04/30/22 21:00 50 L 14 93 04/30/22 20:47 36.6 C 45 L 18 93 04/30/22 20:31 54 L 14 94 04/30/22 20:31 134/92 04/30/22 20:30 93 04/30/22 20:25 42 L 14 94 04/30/22 20:25 152/64 H 04/30/22 20:00 19 95 04/30/22 19:31 138/69 04/30/22 19:31 47 L 20 96 04/30/22 19:30 95 O2 Del Method O2 Flow Rate 05/01/22 06:00 Nasal Cannula 3 05/01/22 02:01 05/01/22 02:01 05/01/22 02:00 05/01/22 01:00 05/01/22 00:24 05/01/22 00:23 04/30/22 23:13 04/30/22 23:00 04/30/22 23:00 04/30/22 22:34 04/30/22 22:34 05/01/22 00:26 05/01/22 00:26 Room Air 04/30/22 22:00 Room Air 04/30/22 22:02 04/30/22 22:02 04/30/22 22:00 04/30/22 21:30 04/30/22 21:30 04/30/22 21:01 04/30/22 21:01 04/30/22 21:00 04/30/22 20:47 Room Air 04/30/22 20:31 04/30/22 20:31 04/30/22 20:30 04/30/22 20:25 04/30/22 20:25 04/30/22 20:00 04/30/22 19:31 04/30/22 19:31 04/30/22 19:30 Laboratory Results 05/01/22 05/01/22 05/01/22 Range/Units 05:04 05:04 05:04 WBC (4.8-10.8) K/ul RBC (4.63-6.08) M/uL Hgb (14.0-18.0) g/dl Hct (40.1-51.0) % MCV (80.0-100.0) fL MCH (25.0-34.0) pg MCHC (32.0-36.0) g/dL RDW Std Deviation (36.4-46.3) fL RDW Coeff of Donnell (11.5-14.5) % Plt Count (130-400) K/uL MPV (9.4-12.4) fL Immature Gran % (Auto) % Neut % (Auto) % Lymph % (Auto) % Gonzales % (Auto) % Eos % (Auto) % Baso % (Auto) % Neut # (Auto) (1.4-6.5) K/uL Lymph # (Auto) (1.2-3.4) K/uL Gonzales # (Auto) (0.24-0.82) K/uL Eos # (Auto) (0-0.50) K/uL Baso # (Auto) (0-0.2) K/uL Immature Gran # (Auto) (0.00-0.02) K/uL Platelet Estimate (Normal) ESR (0-20) mm/hr PT (9.0-12.0) Seconds INR (0.9-1.1) APTT (21.0-31.0) Seconds PTT Ratio Sodium (136-145) mmol/L Potassium (3.5-5.1) mmol/L Chloride (98-107) mmol/L Carbon Dioxide (21-32) mmol/L Anion Gap (3-11) BUN (6-23) mg/dl Creatinine (0.6-1.4) mg/dl Est Cr Clr Drug Dosing ml/min Est GFR ( Amer) ml/min Est GFR (Non-Af Amer) ml/min BUN/Creatinine Ratio (10-20) Glucose (70-99(Fasting)) mg/dl Estimat Average Glucose 114 mg/dl Hemoglobin A1c 5.6 (4.5-5.6) % Calcium (8.5-10.1) mg/dl Magnesium (1.7-2.4) mg/dl Total Bilirubin (0.2-1.0) mg/dl AST (13-39) U/L ALT (7-52) U/L Alkaline Phosphatase (34-104) U/L C-Reactive Protein (0-0.5) mg/dl Total Protein (6.0-8.3) gm/dl Albumin (3.4-5.0) gm/dl Globulin (2.5-4.0) gm/dl Albumin/Globulin Ratio (0.9-2) Triglycerides (0-150) mg/dl Cholesterol (0-200) mg/dl LDL Cholesterol, Calc mg/dl VLDL Cholesterol, Calc (0-30) mg/dl HDL Cholesterol mg/dl Cholesterol/HDL Ratio (0-5) Vitamin B12 547 (180-914) pg/ml Folate > 22.30 (>5.38) ng/ml TSH (0.300-4.500) uIu/ml Urine Color Urine Appearance (Clear) Urine pH (4.5-7.5) Ur Specific [place] (1.000-1.030) Urine Protein (Negative) Urine Glucose (UA) (Negative) Urine Ketones (Negative) Urine Blood (Negative) Urine Nitrite (Negative) Urine Bilirubin (Negative) Urine Urobilinogen (Negative) Ur Leukocyte Esterase (Negative) Lyme Disease IgG Ab (Negative) Lyme Disease IgM Ab (Negative) SARS-CoV-2 (PCR) Hepatitis C Ab (EIA) Pending Hep C Ab Signal/Cutoff Pending SARS-CoV-2, RNA, NAAT (NEGATIVE) 05/01/22 05/01/22 05/01/22 Range/Units 05:04 05:04 05:04 WBC 5.82 (4.8-10.8) K/ul RBC 4.42 L (4.63-6.08) M/uL Hgb 12.7 L (14.0-18.0) g/dl Hct 38.1 L (40.1-51.0) % MCV 86.2 (80.0-100.0) fL MCH 28.7 (25.0-34.0) pg MCHC 33.3 (32.0-36.0) g/dL RDW Std Deviation 44.3 (36.4-46.3) fL RDW Coeff of Donnell 14.2 (11.5-14.5) % Plt Count 157 (130-400) K/uL MPV 10.0 (9.4-12.4) fL Immature Gran % (Auto) 0.2 % Neut % (Auto) 55.3 % Lymph % (Auto) 33.2 % Gonzales % (Auto) 8.6 % Eos % (Auto) 1.7 % Baso % (Auto) 1.0 % Neut # (Auto) 3.22 (1.4-6.5) K/uL Lymph # (Auto) 1.93 (1.2-3.4) K/uL Gonzales # (Auto) 0.50 (0.24-0.82) K/uL Eos # (Auto) 0.10 (0-0.50) K/uL Baso # (Auto) 0.06 (0-0.2) K/uL Immature Gran # (Auto) 0.01 (0.00-0.02) K/uL Platelet Estimate Normal (Normal) ESR 22 H (0-20) mm/hr PT (9.0-12.0) Seconds INR (0.9-1.1) APTT (21.0-31.0) Seconds PTT Ratio Sodium 142 (136-145) mmol/L Potassium 4.1 (3.5-5.1) mmol/L Chloride 108 H (98-107) mmol/L Carbon Dioxide 28 (21-32) mmol/L Anion Gap 6 (3-11) BUN 19 (6-23) mg/dl Creatinine 0.77 (0.6-1.4) mg/dl Est Cr Clr Drug Dosing 103.3 ml/min Est GFR ( Amer) 102.9 ml/min Est GFR (Non-Af Amer) 88.8 ml/min BUN/Creatinine Ratio 24.7 H (10-20) Glucose 101 H (70-99(Fasting)) mg/dl Estimat Average Glucose mg/dl Hemoglobin A1c (4.5-5.6) % Calcium 9.0 (8.5-10.1) mg/dl Magnesium (1.7-2.4) mg/dl Total Bilirubin 0.6 (0.2-1.0) mg/dl AST 17 (13-39) U/L ALT 13 (7-52) U/L Alkaline Phosphatase 69 (34-104) U/L C-Reactive Protein < 0.50 (0-0.5) mg/dl Total Protein 6.2 (6.0-8.3) gm/dl Albumin 3.7 (3.4-5.0) gm/dl Globulin 2.5 (2.5-4.0) gm/dl Albumin/Globulin Ratio 1.5 (0.9-2) Triglycerides 65 (0-150) mg/dl Cholesterol 97 (0-200) mg/dl LDL Cholesterol, Calc 50 mg/dl VLDL Cholesterol, Calc 13 (0-30) mg/dl HDL Cholesterol 34 mg/dl Cholesterol/HDL Ratio 2.9 (0-5) Vitamin B12 (180-914) pg/ml Folate (>5.38) ng/ml TSH (0.300-4.500) uIu/ml Urine Color Urine Appearance (Clear) Urine pH (4.5-7.5) Ur Specific [place] (1.000-1.030) Urine Protein (Negative) Urine Glucose (UA) (Negative) Urine Ketones (Negative) Urine Blood (Negative) Urine Nitrite (Negative) Urine Bilirubin (Negative) Urine Urobilinogen (Negative) Ur Leukocyte Esterase (Negative) Lyme Disease IgG Ab (Negative) Lyme Disease IgM Ab (Negative) SARS-CoV-2 (PCR) Hepatitis C Ab (EIA) Hep C Ab Signal/Cutoff SARS-CoV-2, RNA, NAAT (NEGATIVE) 04/30/22 04/30/22 04/30/22 Range/Units 19:20 18:30 18:10 WBC (4.8-10.8) K/ul RBC (4.63-6.08) M/uL Hgb (14.0-18.0) g/dl Hct (40.1-51.0) % MCV (80.0-100.0) fL MCH (25.0-34.0) pg MCHC (32.0-36.0) g/dL RDW Std Deviation (36.4-46.3) fL RDW Coeff of Donnell (11.5-14.5) % Plt Count (130-400) K/uL MPV (9.4-12.4) fL Immature Gran % (Auto) % Neut % (Auto) % Lymph % (Auto) % Gonzales % (Auto) % Eos % (Auto) % Baso % (Auto) % Neut # (Auto) (1.4-6.5) K/uL Lymph # (Auto) (1.2-3.4) K/uL Gonzales # (Auto) (0.24-0.82) K/uL Eos # (Auto) (0-0.50) K/uL Baso # (Auto) (0-0.2) K/uL Immature Gran # (Auto) (0.00-0.02) K/uL Platelet Estimate (Normal) ESR (0-20) mm/hr PT (9.0-12.0) Seconds INR (0.9-1.1) APTT (21.0-31.0) Seconds PTT Ratio Sodium (136-145) mmol/L Potassium (3.5-5.1) mmol/L Chloride (98-107) mmol/L Carbon Dioxide (21-32) mmol/L Anion Gap (3-11) BUN (6-23) mg/dl Creatinine (0.6-1.4) mg/dl Est Cr Clr Drug Dosing ml/min Est GFR ( Amer) ml/min Est GFR (Non-Af Amer) ml/min BUN/Creatinine Ratio (10-20) Glucose (70-99(Fasting)) mg/dl Estimat Average Glucose mg/dl Hemoglobin A1c (4.5-5.6) % Calcium (8.5-10.1) mg/dl Magnesium (1.7-2.4) mg/dl Total Bilirubin (0.2-1.0) mg/dl AST (13-39) U/L ALT (7-52) U/L Alkaline Phosphatase (34-104) U/L C-Reactive Protein (0-0.5) mg/dl Total Protein (6.0-8.3) gm/dl Albumin (3.4-5.0) gm/dl Globulin (2.5-4.0) gm/dl Albumin/Globulin Ratio (0.9-2) Triglycerides (0-150) mg/dl Cholesterol (0-200) mg/dl LDL Cholesterol, Calc mg/dl VLDL Cholesterol, Calc (0-30) mg/dl HDL Cholesterol mg/dl Cholesterol/HDL Ratio (0-5) Vitamin B12 (180-914) pg/ml Folate (>5.38) ng/ml TSH (0.300-4.500) uIu/ml Urine Color Dark Yellow Urine Appearance Clear (Clear) Urine pH 5.5 (4.5-7.5) Ur Specific [place] 1.027 (1.000-1.030) Urine Protein Negative (Negative) Urine Glucose (UA) Negative (Negative) Urine Ketones Trace H (Negative) Urine Blood Negative (Negative) Urine Nitrite Negative (Negative) Urine Bilirubin Negative (Negative) Urine Urobilinogen Negative (Negative) Ur Leukocyte Esterase Negative (Negative) Lyme Disease IgG Ab (Negative) Lyme Disease IgM Ab (Negative) SARS-CoV-2 (PCR) Cancelled Hepatitis C Ab (EIA) Hep C Ab Signal/Cutoff SARS-CoV-2, RNA, NAAT NEGATIVE (NEGATIVE) 04/30/22 04/30/22 04/30/22 Range/Units 17:02 17:02 17:02 WBC (4.8-10.8) K/ul RBC (4.63-6.08) M/uL Hgb (14.0-18.0) g/dl Hct (40.1-51.0) % MCV (80.0-100.0) fL MCH (25.0-34.0) pg MCHC (32.0-36.0) g/dL RDW Std Deviation (36.4-46.3) fL RDW Coeff of Donnell (11.5-14.5) % Plt Count (130-400) K/uL MPV (9.4-12.4) fL Immature Gran % (Auto) % Neut % (Auto) % Lymph % (Auto) % Gonzales % (Auto) % Eos % (Auto) % Baso % (Auto) % Neut # (Auto) (1.4-6.5) K/uL Lymph # (Auto) (1.2-3.4) K/uL Gonzales # (Auto) (0.24-0.82) K/uL Eos # (Auto) (0-0.50) K/uL Baso # (Auto) (0-0.2) K/uL Immature Gran # (Auto) (0.00-0.02) K/uL Platelet Estimate (Normal) ESR (0-20) mm/hr PT (9.0-12.0) Seconds INR (0.9-1.1) APTT (21.0-31.0) Seconds PTT Ratio Sodium 140 (136-145) mmol/L Potassium 4.5 (3.5-5.1) mmol/L Chloride 107 (98-107) mmol/L Carbon Dioxide 25 (21-32) mmol/L Anion Gap 8 (3-11) BUN 21 (6-23) mg/dl Creatinine 0.89 (0.6-1.4) mg/dl Est Cr Clr Drug Dosing 89.5 ml/min Est GFR ( Amer) 96.9 ml/min Est GFR (Non-Af Amer) 83.6 ml/min BUN/Creatinine Ratio 23.6 H (10-20) Glucose 95 (70-99(Fasting)) mg/dl Estimat Average Glucose mg/dl Hemoglobin A1c (4.5-5.6) % Calcium 9.5 (8.5-10.1) mg/dl Magnesium 2.1 (1.7-2.4) mg/dl Total Bilirubin 0.7 (0.2-1.0) mg/dl AST 20 (13-39) U/L ALT 14 (7-52) U/L Alkaline Phosphatase 77 (34-104) U/L C-Reactive Protein (0-0.5) mg/dl Total Protein 7.2 (6.0-8.3) gm/dl Albumin 4.1 (3.4-5.0) gm/dl Globulin 3.1 (2.5-4.0) gm/dl Albumin/Globulin Ratio 1.3 (0.9-2) Triglycerides (0-150) mg/dl Cholesterol (0-200) mg/dl LDL Cholesterol, Calc mg/dl VLDL Cholesterol, Calc (0-30) mg/dl HDL Cholesterol mg/dl Cholesterol/HDL Ratio (0-5) Vitamin B12 (180-914) pg/ml Folate (>5.38) ng/ml TSH 1.294 (0.300-4.500) uIu/ml Urine Color Urine Appearance (Clear) Urine pH (4.5-7.5) Ur Specific [place] (1.000-1.030) Urine Protein (Negative) Urine Glucose (UA) (Negative) Urine Ketones (Negative) Urine Blood (Negative) Urine Nitrite (Negative) Urine Bilirubin (Negative) Urine Urobilinogen (Negative) Ur Leukocyte Esterase (Negative) Lyme Disease IgG Ab Negative (Negative) Lyme Disease IgM Ab Negative (Negative) SARS-CoV-2 (PCR) Hepatitis C Ab (EIA) Hep C Ab Signal/Cutoff SARS-CoV-2, RNA, NAAT (NEGATIVE) 04/30/22 04/30/22 Range/Units 17:02 17:02 WBC 8.39 (4.8-10.8) K/ul RBC 4.71 (4.63-6.08) M/uL Hgb 13.9 L (14.0-18.0) g/dl Hct 40.8 (40.1-51.0) % MCV 86.6 (80.0-100.0) fL MCH 29.5 (25.0-34.0) pg MCHC 34.1 (32.0-36.0) g/dL RDW Std Deviation 44.8 (36.4-46.3) fL RDW Coeff of Donnell 14.2 (11.5-14.5) % Plt Count 175 (130-400) K/uL MPV 10.3 (9.4-12.4) fL Immature Gran % (Auto) % Neut % (Auto) % Lymph % (Auto) % Gonzales % (Auto) % Eos % (Auto) % Baso % (Auto) % Neut # (Auto) (1.4-6.5) K/uL Lymph # (Auto) (1.2-3.4) K/uL Gonzales # (Auto) (0.24-0.82) K/uL Eos # (Auto) (0-0.50) K/uL Baso # (Auto) (0-0.2) K/uL Immature Gran # (Auto) (0.00-0.02) K/uL Platelet Estimate (Normal) ESR (0-20) mm/hr PT 11.3 (9.0-12.0) Seconds INR 1.1 (0.9-1.1) APTT 28.8 (21.0-31.0) Seconds PTT Ratio 1.0 Sodium (136-145) mmol/L Potassium (3.5-5.1) mmol/L Chloride (98-107) mmol/L Carbon Dioxide (21-32) mmol/L Anion Gap (3-11) BUN (6-23) mg/dl Creatinine (0.6-1.4) mg/dl Est Cr Clr Drug Dosing ml/min Est GFR ( Amer) ml/min Est GFR (Non-Af Amer) ml/min BUN/Creatinine Ratio (10-20) Glucose (70-99(Fasting)) mg/dl Estimat Average Glucose mg/dl Hemoglobin A1c (4.5-5.6) % Calcium (8.5-10.1) mg/dl Magnesium (1.7-2.4) mg/dl Total Bilirubin (0.2-1.0) mg/dl AST (13-39) U/L ALT (7-52) U/L Alkaline Phosphatase (34-104) U/L C-Reactive Protein (0-0.5) mg/dl Total Protein (6.0-8.3) gm/dl Albumin (3.4-5.0) gm/dl Globulin (2.5-4.0) gm/dl Albumin/Globulin Ratio (0.9-2) Triglycerides (0-150) mg/dl Cholesterol (0-200) mg/dl LDL Cholesterol, Calc mg/dl VLDL Cholesterol, Calc (0-30) mg/dl HDL Cholesterol mg/dl Cholesterol/HDL Ratio (0-5) Vitamin B12 (180-914) pg/ml Folate (>5.38) ng/ml TSH (0.300-4.500) uIu/ml Urine Color Urine Appearance (Clear) Urine pH (4.5-7.5) Ur Specific [place] (1.000-1.030) Urine Protein (Negative) Urine Glucose (UA) (Negative) Urine Ketones (Negative) Urine Blood (Negative) Urine Nitrite (Negative) Urine Bilirubin (Negative) Urine Urobilinogen (Negative) Ur Leukocyte Esterase (Negative) Lyme Disease IgG Ab (Negative) Lyme Disease IgM Ab (Negative) SARS-CoV-2 (PCR) Hepatitis C Ab (EIA) Hep C Ab Signal/Cutoff SARS-CoV-2, RNA, NAAT (NEGATIVE)
[2022-05-01 08:21] LABS: Estimated Average Glucose 114 mg/dl; Hemoglobin A1C 5.6 % (4.5-5.6)
[2022-05-01] MEDS ORDERED: CEROVITE ADV FORMULA TAB PO SCH (09:00)
[2022-05-01] MEDS ORDERED: NALTREXONE HCL 50 MG TAB PO SCH (09:00)
[2022-05-01] MEDS ORDERED: FOLIC ACID 1 MG TAB PO SCH (09:00)
[2022-05-01] MEDS ORDERED: CHOLECALCIFEROL 1,000 UNITS 25 MCG TAB PO SCH (09:00)
[2022-05-01] MEDS ORDERED: SERTRALINE HCL 100 MG TABLET PO SCH (09:00)
[2022-05-01] MEDS ORDERED: THIAMINE HCL 100 MG TAB PO SCH (09:00)
[2022-05-01] MEDS ORDERED: ATORVASTATIN 20 MG TAB PO SCH (09:00)
[2022-05-01] MEDS ORDERED: VALSARTAN 80 MG TAB PO SCH (09:00)
[2022-05-01] MEDS ORDERED: amLODIPine BESYLATE 5 MG TAB PO SCH (09:00)
--- NOTE | 2022-05-01 14:03 | XCELERA ---
[id number]
--- NOTE | 2022-05-01 14:58 | Neurology Consultation ---
Date of Consultation May 01, 2022 Assessment & Plan (1) Leg weakness: The patient reports having generalized weakness, lack of endurance, worse in left lower extremity. Such symptoms started approximately 4 days ago. The patient has baseline peripheral polyneuropathy but right lower extremity proximal weakness and numbness is reportedly new. Imaging studies did not show evidence of cerebrovascular accident or central nervous system pathology to explain the patient's symptoms. He might have peripheral etiology including lumbosacral radiculopathy, femoral neuropathy, or spinal stenosis which might cause leg weakness. Currently, there is no finding to suggest Guillain-Madrid syndrome, myopathy, myelopathy, or inflammatory process. Plan: Outpatient physical therapy. Follow-up with neurology clinic. The patient will probably need electromyography with nerve conduction study to assess for peripheral etiologies. Fall precautions. The patient is neurologically stable to discharge home. (2) Headache: Impression: The patient reports having frontal and retro-orbital headache for last 3 to 4 days, which has been better today. The patient denies having episodic headache syndromes. Underlying etiology is not clear, but based on description, the patient likely has tension type headache. Untreated obstructive sleep apnea might cause similar headaches as well. Laboratory results including ESR are not suggestive of inflammatory process including temporal arteritis. There is no clinical or laboratory findings to suggest infectious cause including meningitis. Plan: Consider treating headache on gabapentin 100 mg twice a day for 3 to 5 days. If headache persists, then the patient will need a follow-up with neurology clinic. The patient should avoid using [id number] analgesic medications frequently, which might induce rebound headaches. (3) Neuropathy: Impression: The patient was diagnosed with polyneuropathy involving bilateral lower extremities. Apparently, vitamin B12 deficiency can cause neuropathy. We do not access to prior work-up for neuropathy. Plan: Follow-up with neurology clinic. The patient does not need symptomatic treatment for polyneuropathy. Fall precautions. (4) Abnormal gait: Impression: The patient has unsteady gait for a long time, which has been slightly worsened during the last few days primarily because of her right leg proximal weakness. The main cause of abnormal gait is peripheral polyneuropathy. Plan: As seen above. 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 There is good reconstitution of circulation from other vessels but good collaterals. Plan: There is no indication for intervention of total occlusion of carotid artery. Continue on aspirin and statin. Plan Thank you for the consultation. We will sign off. History of Present Illness Reason for Consultation: Right leg weakness/numbness Requesting Physician: Radha Juan Attending Physician: Wilfred Zhang DO History of Present Illness The patient is a 76-year-old pleasant gentleman, who was directly referred to the emergency department yesterday by primary care physician, based on right lower extremity weakness, to rule out cerebrovascular accident. The patient reports that he has not been feeling well for last 4 days, with generalized fatigue, lack of energy and motivation. He has also noticed slightly worsening his baseline unsteady gait, with intermittent dragging of right leg. He has established diagnosis of peripheral polyneuropathy. He has been treated on vitamin B12 and he has also received acupuncture, with some improvement of symptoms. He denies neck and low back pain. He has not fallen down. He can still ambulate independently. He has no bowel or bladder incontinence or sensory leveling to suggest myelopathy. He has been compliant on his medications. He denies being on any new medications. He does not remember having any fever, chills, sick contact, but he feels diaphoretic at times after physical activity for last few days. He has noticed retro-orbital, mostly frontal headache for last few days. Typically, he does not get headaches including migraines. Since coming to the emergency department, frontal headache has been improved significantly. He takes Tylenol or ibuprofen to control headaches. In recent past, the patient noticed right eye central scotoma/vision loss after waking up middle of the night. He woke up next morning, with improvement of vision. He denies having stroke symptoms in the past. Initial head CT in emergency department was unremarkable. Today, the patient had a brain MRI, which did not show acute intracranial pathology including acute or chronic cerebrovascular accidents. However, neck MR angiography showed total occlusion of right internal carotid artery, which is likely chronic. Intracranial arteries were patent without any obvious stenosis, asymmetry, or aneurysm. Neck arteries did not show evidence of dissection, or hemodynamically significant stenosis, other than total occlusion no right internal carotid artery. The patient denies any tick or insect bites. He has not traveled outside of town recently. He denies any recent fall or injury. Labs including lipid panel, vitamin B12 level, TSH, ESR and vitamin D levels were unremarkable as well as CBC and comprehensive metabolic panel. Echocardiogram was also unremarkable. Telemetry monitoring has been showing sinus rhythm. Overall, the patient has been symptom-free other than right lower extremity mostly proximal mild weakness and reported decreased sensation of right proximal lower extremity. He can ambulate independently, very close to his baseline. He is in agreement with outpatient follow-up and physical therapy. I have reviewed the patient's chart including imaging studies and visualized them personally. I have discussed the case with the patient and answer his questions in detail. Allergies Allergy/AdvReac Type Severity Reaction Status Date / Time Penicillins Allergy Severe Anaphylaxis Verified 04/30/22 15:16 oxycodone AdvReac gi upset Verified 04/30/22 15:16 Home Medications Medication Instructions Recorded Confirmed Type vit C 250 mg-vit E 90 mg-zinc 40 1 tab PO BID 04/30/19 04/30/22 History mg-copper 1 pt-eylfqo-tbyxyl capsule (PreserVision AREDS-2) thiamine HCl (vitamin B1) 100 mg 100 mg PO QAM #90 tabs 01/05/21 04/30/22 Rx tablet cyanocobalamin (vitamin B-12) 1,000 mcg subcut MONTHLY #1 ea 06/08/21 04/30/22 Rx 1,000 mcg/mL injection kit atorvastatin 20 mg tablet 20 mg PO QAM 09/21/21 04/30/22 History folic acid 1 mg tablet 1 mg PO QAM 09/21/21 04/30/22 History ibuprofen 200 mg tablet (Advil) 200 mg PO QAM 09/21/21 04/30/22 History sertraline 100 mg tablet (Zoloft) 200 mg PO QAM 09/21/21 04/30/22 History valsartan 160 mg tablet 160 mg PO QAM 09/21/21 04/30/22 History cholecalciferol (vitamin D3) 50 50 mcg PO QAM 11/26/21 04/30/22 History mcg (2,000 unit) capsule naltrexone 50 mg tablet 50 mg PO QAM 11/26/21 04/30/22 History omega-3 fatty acids 2,000 mg PO QAM 11/26/21 04/30/22 History amlodipine 10 mg tablet 10 mg PO QAM #90 tabs 01/19/22 04/30/22 Rx Patient History Medical History Anxiety and depression Bradycardia Generalized osteoarthritis Hearing difficulty History of syncope Remote episode several years ago > felt "related to dehydration" Hyperlipidemia Hypertension Macular degeneration Neuropathy PTSD (post-traumatic stress disorder) Surgical History H/O colonoscopy Colonoscopy (09/25/21): MAC at [facility]. Repeat 5 yrs H/O eye surgery MACULAR PUCKER H/O sinus surgery History of arthroscopy LEFT KNEE History of cataract surgery RT History of cholecystectomy History of herniorrhaphy History of knee replacement LEFT History of tonsillectomy History of tooth extraction S/P hip replacement LEFT Status post reverse total replacement of right shoulder (~12/2021) Family History Mother Liver cancer Colorectal cancer Father Pancreatic cancer Uncle Myocardial infarction Other No family history of adverse response to anesthesia Denies family history of Ovarian cancer Prostate cancer Diabetes Breast cancer Lung cancer Stroke Social History Smoking Status: Never smoker Second Hand Exposure: No; Hx Alcohol Use: No Hx Substance Use: No Preferred Language: [place] Communication Ability: Effective Visual Impairment: Limited Hearing Ability: Normal Director Council On Aging Required: No Beliefs That Will Affect Care: None marital status: Current Living Situation: Spouse current occupational status: retired How many Children do You have: 0 How many Children do You have Comment: 3 step children Feels Safe at Home: Yes Safety Concerns: Feels Safe At This Time Childhood Exposure to Second-Hand Smoke: Yes caffeine: Yes Dental Care, Regularly: No Physical Activity Frequency: Daily Physical Activity Frequency Comment: walks twice a day Seatbelt Use: always Sunscreen Use: No (wears a hat) Assistive Devices: None Review of Systems Review of Systems: All systems reviewed & are unremarkable except as noted in HPI & below Physical Exam Physical Exam: General Examination: Constitutional: Well developed overweight person in no acute distress. HENT: Normal exam with inspection. CV: Hearth rhtyhm is regular. Neck: Supple, no carotid bruits. Lungs: Non-labored and comfortable breathing. Abdomen: Soft, non-tender, non-distended. Skin: No rash or ecchymosis. Extremities: No edema or cyanosis NEUROLOGICAL EXAMINATION: Mental Status: Alert and oriented to place, person and time. Cranial Nerves: II-XII are intact. No nystagmus. Funduscopy: Normal looking optic discs. Motor: Right arm deltoid, and biceps strength is 4+ out of 5, partially due to shoulder pain. Right triceps strength is 5- out of 5. Left upper extremity strength is 5 out of 5. 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 Left hip flexors are 5- out of 5 in right hip flexors are 4+ out of 5. Knee extensors and flexors are bilaterally 5- out of 5. Ankle dorsiflexors, plantar flexors, evertors and invertors are 5 out of 5. DTR's: 2+ in upper extremities, 1+ in knees and absent in ankles symmetrically. No Babinsky. Tone: Normal without spasticity or rigidity. Sensory: Decreased sensation distal lower extremities up to knees, to all sensory modalities symmetrically. Additionally, the patient also describes r ight anterior, posterior and lateral thigh slightly decreased sensation compared to left. He also reports slightly decreased sensation in the lateral right calf compared to left. Coordination: No dysmetria with FTN testing. Speech: Fluent. Comprehension is intact. Gait: The patient can ambulate independently with wide-based walking pattern. He is slightly unsteady on his feet. He has no typical ataxia, shuffling, festination, or limping. Romberg is positive. Musculoskeletal: Normal muscle bulk, no atrophy other than slight atrophy of feet and distal lower extremity muscles. Straight leg raising test is bilaterally negative. Results & Data ([facility]) Vital Signs (Past 12 Hours) Vital Signs Pulse Pulse Resp BP BP Pulse Ox O2 Del Method 05/01/22 10:13 51 L 92 05/01/22 10:13 20 131/73 Room Air 05/01/22 09:00 47 L 05/01/22 08:00 51 L 96 05/01/22 08:00 148/64 H 05/01/22 07:00 46 L 96 05/01/22 06:00 45 L 16 138/65 97 Nasal Cannula O2 Flow Rate 05/01/22 10:13 05/01/22 10:13 05/01/22 09:00 05/01/22 08:00 05/01/22 08:00 08/20/22 07:00 05/01/22 06:00 3 Laboratory Results Laboratory Results - last 24 hr 04/30/22 04/30/22 04/30/22 17:02 17:02 17:02 WBC 8.39 RBC 4.71 Hgb 13.9 L Hct 40.8 MCV 86.6 MCH 29.5 MCHC 34.1 RDW Std Deviation 44.8 RDW Coeff of Donnell 14.2 Plt Count 175 MPV 10.3 Immature Gran % (Auto) Neut % (Auto) Lymph % (Auto) Carson % (Auto) Eos % (Auto) Baso % (Auto) Neut # (Auto) Lymph # (Auto) Carson # (Auto) Eos # (Auto) Baso # (Auto) Immature Gran # (Auto) Platelet Estimate ESR PT 11.3 INR 1.1 APTT 28.8 PTT Ratio 1.0 Sodium 140 Potassium 4.5 Chloride 107 Carbon Dioxide 25 Anion Gap 8 BUN 21 Creatinine 0.89 Est Cr Clr Drug Dosing 89.5 Est GFR ( Amer) 96.9 Est GFR (Non-Af Amer) 83.6 BUN/Creatinine Ratio 23.6 H Glucose 95 Estimat Average Glucose Hemoglobin A1c Calcium 9.5 Magnesium 2.1 Total Bilirubin 0.7 AST 20 ALT 14 Alkaline Phosphatase 77 C-Reactive Protein Total Protein 7.2 Albumin 4.1 Globulin 3.1 Albumin/Globulin Ratio 1.3 Triglycerides Cholesterol LDL Cholesterol, Calc VLDL Cholesterol, Calc HDL Cholesterol Cholesterol/HDL Ratio Vitamin B12 Folate TSH Urine Color Urine Appearance Urine pH Ur Specific Caldwell Urine Protein Urine Glucose (UA) Urine Ketones Urine Blood Urine Nitrite Urine Bilirubin Urine Urobilinogen Ur Leukocyte Esterase Lyme Disease IgG Ab Lyme Disease IgM Ab SARS-CoV-2 (PCR) Hepatitis C Ab (EIA) Hep C Ab Signal/Cutoff SARS-CoV-2, RNA, NAAT 04/30/22 04/30/22 04/30/22 17:02 17:02 18:10 WBC RBC Hgb Hct MCV MCH MCHC RDW Std Deviation RDW Coeff of Donnell Plt Count MPV Immature Gran % (Auto) Neut % (Auto) Lymph % (Auto) Carson % (Auto) Eos % (Auto) Baso % (Auto) Neut # (Auto) Lymph # (Auto) Carson # (Auto) Eos # (Auto) Baso # (Auto) Immature Gran # (Auto) Platelet Estimate ESR PT INR APTT PTT Ratio Sodium Potassium Chloride Carbon Dioxide Anion Gap BUN Creatinine Est Cr Clr Drug Dosing Est GFR ( Amer) Est GFR (Non-Af Amer) BUN/Creatinine Ratio Glucose Estimat Average Glucose Hemoglobin A1c Calcium Magnesium Total Bilirubin AST ALT Alkaline Phosphatase C-Reactive Protein Total Protein Albumin Globulin Albumin/Globulin Ratio Triglycerides Cholesterol LDL Cholesterol, Calc VLDL Cholesterol, Calc HDL Cholesterol Cholesterol/HDL Ratio Vitamin B12 Folate TSH 1.294 Urine Color Urine Appearance Urine pH Ur Specific Caldwell Urine Protein Urine Glucose (UA) Urine Ketones Urine Blood Urine Nitrite Urine Bilirubin Urine Urobilinogen Ur Leukocyte Esterase Lyme Disease IgG Ab Negative Lyme Disease IgM Ab Negative SARS-CoV-2 (PCR) Cancelled Hepatitis C Ab (EIA) Hep C Ab Signal/Cutoff SARS-CoV-2, RNA, NAAT 04/30/22 04/30/22 05/01/22 18:30 19:20 05:04 WBC 5.82 RBC 4.42 L Hgb 12.7 L Hct 38.1 L MCV 86.2 MCH 28.7 MCHC 33.3 RDW Std Deviation 44.3 RDW Coeff of Donnell 14.2 Plt Count 157 MPV 10.0 Immature Gran % (Auto) 0.2 Neut % (Auto) 55.3 Lymph % (Auto) 33.2 Carson % (Auto) 8.6 Eos % (Auto) 1.7 Baso % (Auto) 1.0 Neut # (Auto) 3.22 Lymph # (Auto) 1.93 Carson # (Auto) 0.50 Eos # (Auto) 0.10 Baso # (Auto) 0.06 Immature Gran # (Auto) 0.01 Platelet Estimate Normal ESR PT INR APTT PTT Ratio Sodium Potassium Chloride Carbon Dioxide Anion Gap BUN Creatinine Est Cr Clr Drug Dosing Est GFR ( Amer) Est GFR (Non-Af Amer) BUN/Creatinine Ratio Glucose Estimat Average Glucose Hemoglobin A1c Calcium Magnesium Total Bilirubin AST ALT Alkaline Phosphatase C-Reactive Protein Total Protein Albumin Globulin Albumin/Globulin Ratio Triglycerides Cholesterol LDL Cholesterol, Calc VLDL Cholesterol, Calc HDL Cholesterol Cholesterol/HDL Ratio Vitamin B12 Folate TSH Urine Color Dark Yellow Urine Appearance Clear Urine pH 5.5 Ur Specific Caldwell 1.027 Urine Protein Negative Urine Glucose (UA) Negative Urine Ketones Trace H Urine Blood Negative Urine Nitrite Negative Urine Bilirubin Negative Urine Urobilinogen Negative Ur Leukocyte Esterase Negative Lyme Disease IgG Ab Lyme Disease IgM Ab SARS-CoV-2 (PCR) Hepatitis C Ab (EIA) Hep C Ab Signal/Cutoff SARS-CoV-2, RNA, NAAT NEGATIVE 05/01/22 05/01/22 05/01/22 05:04 05:04 05:04 WBC RBC Hgb Hct MCV MCH MCHC RDW Std Deviation RDW Coeff of Donnell Plt Count MPV Immature Gran % (Auto) Neut % (Auto) Lymph % (Auto) Carson % (Auto) Eos % (Auto) Baso % (Auto) Neut # (Auto) Lymph # (Auto) Carson # (Auto) Eos # (Auto) Baso # (Auto) Immature Gran # (Auto) Platelet Estimate ESR 22 H PT INR APTT PTT Ratio Sodium 142 Potassium 4.1 Chloride 108 H Carbon Dioxide 28 Anion Gap 6 BUN 19 Creatinine 0.77 Est Cr Clr Drug Dosing 103.3 Est GFR ( Amer) 102.9 Est GFR (Non-Af Amer) 88.8 BUN/Creatinine Ratio 24.7 H Glucose 101 H Estimat Average Glucose 114 Hemoglobin A1c 5.6 Calcium 9.0 Magnesium Total Bilirubin 0.6 AST 17 ALT 13 Alkaline Phosphatase 69 C-Reactive Protein < 0.50 Total Protein 6.2 Albumin 3.7 Globulin 2.5 Albumin/Globulin Ratio 1.5 Triglycerides 65 Cholesterol 97 LDL Cholesterol, Calc 50 VLDL Cholesterol, Calc 13 HDL Cholesterol 34 Cholesterol/HDL Ratio 2.9 Vitamin B12 Folate TSH Urine Color Urine Appearance Urine pH Ur Specific Caldwell Urine Protein Urine Glucose (UA) Urine Ketones Urine Blood Urine Nitrite Urine Bilirubin Urine Urobilinogen Ur Leukocyte Esterase Lyme Disease IgG Ab Lyme Disease IgM Ab SARS-CoV-2 (PCR) Hepatitis C Ab (EIA) Hep C Ab Signal/Cutoff SARS-CoV-2, RNA, NAAT 05/01/22 05/01/22 05:04 05:04 WBC RBC Hgb Hct MCV MCH MCHC RDW Std Deviation RDW Coeff of Donnell Plt Count MPV Immature Gran % (Auto) Neut % (Auto) Lymph % (Auto) Carson % (Auto) Eos % (Auto) Baso % (Auto) Neut # (Auto) Lymph # (Auto) Carson # (Auto) Eos # (Auto) Baso # (Auto) Immature Gran # (Auto) Platelet Estimate ESR PT INR APTT PTT Ratio Sodium Potassium Chloride Carbon Dioxide Anion Gap BUN Creatinine Est Cr Clr Drug Dosing Est GFR ( Amer) Est GFR (Non-Af Amer) BUN/Creatinine Ratio Glucose Estimat Average Glucose Hemoglobin A1c Calcium Magnesium Total Bilirubin AST ALT Alkaline Phosphatase C-Reactive Protein Total Protein Albumin Globulin Albumin/Globulin Ratio Triglycerides Cholesterol LDL Cholesterol, Calc VLDL Cholesterol, Calc HDL Cholesterol Cholesterol/HDL Ratio Vitamin B12 547 Folate > 22.30 TSH Urine Color Urine Appearance Urine pH Ur Specific Caldwell Urine Protein Urine Glucose (UA) Urine Ketones Urine Blood Urine Nitrite Urine Bilirubin Urine Urobilinogen Ur Leukocyte Esterase Lyme Disease IgG Ab Lyme Disease IgM Ab SARS-CoV-2 (PCR) Hepatitis C Ab (EIA) Pending Hep C Ab Signal/Cutoff Pending SARS-CoV-2, RNA, NAAT Diagnostic Findings Chest X-Ray 04/30/22 16:47 XR chest 1V portable HISTORY: dizziness, weakness COMPARISON: Chest 12/09/2020. FINDINGS: The lungs are clear. Cardiac silhouette is normal in size. No pleural effusions. No pneumothorax. Right shoulder prosthesis. Degenerative changes within the left shoulder. IMPRESSION: No acute process. ACT 112: Negative or not required by law. Electronically signed by: Tam Olsen M.D. 04/30/2022 6:[address] 04/30/22 16:[address] DOSE: 614.27 mGy.cm HISTORY: headache, dizziness x3 days TECHNIQUE: Multiaxial CT images of the head were performed without the use of intravenous contrast. Automated exposure control was utilized for this study. A dose lowering technique was utilized adhering to the principles of ALARA. Comparison: None. Findings: The paranasal sinuses and mastoid air cells are clear. The calvarium and skull base are intact. There is no mass, hematoma, midline shift, acute infarct. White matter hypodensity is nonspecific but suggestive of microvascular ischemic change. The ventricles and sulci demonstrate mild age-related involutional changes. Impression: No acute intracranial abnormality. Atrophy and microvascular ischemic changes. ACT 112: Negative or not required by law. Electronically signed by: Tam Olsen M.D. 04/30/2022 5:40 PM Brain MRI 04/30/22 22:00 Brain MRI WITH AND WITHOUT CONTRAST HISTORY: Headache. Weakness. TECHNIQUE: Multiplanar multisequence MRI of the brain was performed both before and after the intravenous administration of contrast. COMPARISON STUDY: Head CT 04/30/2022. FINDINGS: There is no mass, hematoma, midline shift, or acute infarct. The paranasal sinuses are clear. The mastoid air cells are clear. The ventricles and sulci demonstrate mild age-related involutional changes. A few scattered foci of T2 hyperintensity seen within the periventricular and subcortical white matter are nonspecific but suggestive of mild microvascular ischemic changes. Loss of the normal flow-void within the intracranial internal carotid artery consistent with occlusion. This is likely chronic given the lack of an acute infarct. Prior right lens replacement. No abnormal enhancement. IMPRESSION: 1. 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 2. No acute infarct or intracranial hemorrhage. 3. Atrophy and mild microvascular ischemic changes. ACT 112: Negative or not required by law. Electronically signed by: Tam Olsen M.D. 05/01/2022 6:41 AM Head MRA 04/30/22 22:00 Brain MRA HISTORY: CVA TECHNIQUE: 3-D [id number] MRA of the brain was performed without contrast. COMPARISON STUDY: None. FINDINGS: Occluded right internal carotid artery. Visualized left intracranial internal carotid artery, distal vertebral arteries, and basilar artery are widely patent. 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 IMPRESSION: 1. Occluded right internal carotid artery. 2. No significant stenosis, occlusion, or aneurysm within the bilateral ACAs, MCAs, or blown film extrusion operator. ACT 112: Negative or not required by law. Electronically signed by: Tam Olsen M.D. 05/01/2022 6:44 AM Neck MRA 04/30/22 22:00 NECK CTA HISTORY: Headache. Weakness. TECHNIQUE: Multiaxial CT images of the neck were performed following the intravenous administration of contrast to evaluate the major cervical vessels. Maximum intensity projection images were also obtained. All measurements were calculated based on NASCET criteria. A dose lowering technique was utilized adhering to the principles of ALARA. COMPARISON STUDY: None. FINDINGS: The aortic arch and proximal great vessels are widely patent. There is no significant stenosis, occlusion, or dissection identified within the bilateral common carotid, left internal carotid, or vertebral arteries. There is complete occlusion of the right internal carotid artery. IMPRESSION: 1. Complete occlusion of the right internal carotid artery. 2. No significant stenosis, occlusion, or dissection identified within the left carotid or vertebral arteries. ACT 112: Negative or not required by law. Electronically signed by: Tam Olsen M.D. 05/01/2022 6:47 AM
--- NOTE | 2022-05-01 15:33 | Discharge Summary ---
Date of Service May 01, 2022 Admission HPI Per Admitting Provider Reynold Yeung is a 76-year-old male with a PMH significant for hypertension, hyperlipidemia, PTSD, depression, anxiety, alcohol use disorder, fatty liver disease who presents today as a recommendation of his PCP for trouble walking and headache. He has had a constant, throbbing bilateral headache for the past 3 days above and behind his eyes. He is not getting any worse or better. He has tried drinking water, sleeping, and Tylenol at home without any alleviation. He is also been getting more fatigued for the past several days, noting that he is not keeping up with his as he used to do when walking the dog and is sleeping throughout the night and then between lunch and dinner, still feeling fatigued despite this. He has bilateral lower extremity numbness and has been evaluated and treated for neuropathy previously, currently getting B12 supplementations and previously benefitted from acupuncture. He feels it was better at one time, but is now getting worse again. He also describes a gait di sturbance, stating he is walking "funny" and has a hard time picking his feet up getting it over the rugs in his home. He is outside a lot but denies known tick bites, rash, fever/chills. He has not noticed any focal weakness or numbness, denies speech difficulties, vomiting. He had an incident of transient right vision loss maybe about a month ago in the middle of the night he was getting up to the bathroom, however her woke up and vision was back at his baseline has not had recurrence. He has not had any falls. His blood pressures been elevated at home, systolic between [id number], occasionally near 200. He denies chest pain, palpitation, shortness of breath, cough. Upon presentation to the ED, he HR 4050s, per previous records this is baseline for the past year. Normotensive, SPO2 >95% on room air, afebrile. Labs significant for Hgb 13.1, about baseline. Labs otherwise unremarkable, no leukocytosis, electrolyte abnormalities, renal function at baseline, without transaminitis. Lyme is pending. CT unremarkable for acute process, specifically no evidence of mass, hemorrhage, midline shift, acute infarct. Nonspecific age- related microvascular changes and atrophy are seen. CXR without evidence for acute process. Admission Exam Per Admitting Provider General: awake, alert, no apparent distress Head: Normocephalic, atraumatic ENT: PERRL, EOMI, no pharyngeal exudate, mucous membranes moist Chest: Clear to auscultation, on room air, no adventitious breath sounds Cardiac: bradycardic rate and rhythm, no murmur, no JVD, normal peripheral pulses, good capillary refill Abdominal: NABS x 4 quadrants, soft, nontender to palpation, no rebound, guarding or tenderness Extremities: Normal inspection, no peripheral edema or erythema, calfs nontender to palpation Psych: Normal mood and affect Neuro: AAO x 3, strength intact bilaterally and rated 5/5, no motor deficits, speech is clear, L > R sensation Skin: no rash or erythema Principal Diagnosis Tension Headache and peripheral neuropathy Discharge Exam Constitutional: well-appearing, no acute distress HEENT: NCAT, no conjunctival injection CV: regular rhythm, no murmur appreciated, extremities well-perfused, no LE edema Resp: CTABL, no wheezes/rales/rhonchi appreciated, no increased work of breathing GI: soft, nondistended, nontender, BS normoactive MSK: no gross deformities appreciated Skin: warm, dry, no rash appreciated Neuro: alert, oriented, no focal neurologic deficit appreciated. Decreased sensation right LE compared to left. Strength 5/5 upper and lower extremities. Cranial nerves II-XII grossly intact. Discharge Data Allergies Allergy/AdvReac Type Severity Reaction Status Date / Time Penicillins Allergy Severe Anaphylaxis Verified 04/30/22 15:16 oxycodone AdvReac gi upset Verified 04/30/22 15:16 Consultations 04/30/22 18:58 ED Decision to Admit Stat 04/30/22 22:00 Consult Neurology Routine Ordered Studies 04/30/22 16:47 CT head/brain wo con Stat HEAD CT NONCONTRAST CT DOSE: 614.27 mGy.cm HISTORY: headache, dizziness x3 days TECHNIQUE: Multiaxial CT images of the head were performed without the use of intravenous contrast. Automated exposure control was utilized for this study. A dose lowering technique was utilized adhering to the principles of ALARA. Comparison: None. Findings: The paranasal sinuses and mastoid air cells are clear. The calvarium and skull base are intact. There is no mass, hematoma, midline shift, acute infarct. White matter hypodensity is nonspecific but suggestive of microvascular ischemic change. The ventricles and sulci demonstrate mild age-related involutional changes. Impression: No acute intracranial abnormality. Atrophy and microvascular ischemic changes. 04/30/22 22:00 MR brain wo/w con Routine Brain MRI WITH AND WITHOUT CONTRAST HISTORY: Headache. Weakness. TECHNIQUE: Multiplanar multisequence MRI of the brain was performed both before and after the intravenous administration of contrast. COMPARISON STUDY: Head CT 04/30/2022. FINDINGS: There is no mass, hematoma, midline shift, or acute infarct. The paranasal sinuses are clear. The mastoid air cells are clear. The ventricles and sulci demonstrate mild age-related involutional changes. A few scattered foci of T2 hyperintensity seen within the periventricular and subcortical white matter are nonspecific but suggestive of mild microvascular ischemic changes. Loss of the normal flow-void within the intracranial internal carotid artery consistent with occlusion. This is likely chronic given the lack of an acute infarct. Prior right lens replacement. No abnormal enhancement. IMPRESSION: 1. 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 2. No acute infarct or intracranial hemorrhage. 3. Atrophy and mild microvascular ischemic changes. 04/30/22 22:00 MR angio head wo con Routine MR angio neck wo/w con Routine NECK CTA HISTORY: Headache. Weakness. TECHNIQUE: Multiaxial CT images of the neck were performed following the intravenous administration of contrast to evaluate the major cervical vessels. Maximum intensity projection images were also obtained. All measurements were calculated based on NASCET criteria. A dose lowering technique was utilized adhering to the principles of ALARA. COMPARISON STUDY: None. FINDINGS: The aortic arch and proximal great vessels are widely patent. There is no significant stenosis, occlusion, or dissection identified within the bilateral common carotid, left internal carotid, or vertebral arteries. There is complete occlusion of the right internal carotid artery. IMPRESSION: 1. Complete occlusion of the right internal carotid artery. 2. No significant stenosis, occlusion, or dissection identified within the left carotid or vertebral arteries. Brain MRA HISTORY: CVA TECHNIQUE: 3-D [id number] MRA of the brain was performed without contrast. COMPARISON STUDY: None. FINDINGS: Occluded right internal carotid artery. Visualized left intracranial internal carotid artery, distal vertebral arteries, and basilar artery are widely patent. There is no significant stenosis, occlusion, or aneurysm seen within the bilateral ACAs, MCAs, or last model department supervisor. IMPRESSION: 1. Occluded right internal carotid artery. 2. No significant stenosis, occlusion, or aneurysm within the bilateral ACAs, MCAs, or last model department supervisor. 05/01/22 05/01/22 05/01/22 Range/Units 05:04 05:04 05:04 WBC (4.8-10.8) K/ul RBC (4.63-6.08) M/uL Hgb (14.0-18.0) g/dl Hct (40.1-51.0) % MCV (80.0-100.0) fL MCH (25.0-34.0) pg MCHC (32.0-36.0) g/dL RDW Std Deviation (36.4-46.3) fL RDW Coeff of Donnell (11.5-14.5) % Plt Count (130-400) K/uL MPV (9.4-12.4) fL Immature Gran % (Auto) % Neut % (Auto) % Lymph % (Auto) % Pickett % (Auto) % Eos % (Auto) % Baso % (Auto) % Neut # (Auto) (1.4-6.5) K/uL Lymph # (Auto) (1.2-3.4) K/uL Pickett # (Auto) (0.24-0.82) K/uL Eos # (Auto) (0-0.50) K/uL Baso # (Auto) (0-0.2) K/uL Immature Gran # (Auto) (0.00-0.02) K/uL Platelet Estimate (Normal) ESR (0-20) mm/hr PT (9.0-12.0) Seconds INR (0.9-1.1) APTT (21.0-31.0) Seconds PTT Ratio Sodium (136-145) mmol/L Potassium (3.5-5.1) mmol/L Chloride (98-107) mmol/L Carbon Dioxide (21-32) mmol/L Anion Gap (3-11) BUN (6-23) mg/dl Creatinine (0.6-1.4) mg/dl Est Cr Clr Drug Dosing ml/min Est GFR ( Amer) ml/min Est GFR (Non-Af Amer) ml/min BUN/Creatinine Ratio (10-20) Glucose (70-99(Fasting)) mg/dl Estimat Average Glucose 114 mg/dl Hemoglobin A1c 5.6 (4.5-5.6) % Calcium (8.5-10.1) mg/dl Magnesium (1.7-2.4) mg/dl Total Bilirubin (0.2-1.0) mg/dl AST (13-39) U/L ALT (7-52) U/L Alkaline Phosphatase (34-104) U/L C-Reactive Protein (0-0.5) mg/dl Total Protein (6.0-8.3) gm/dl Albumin (3.4-5.0) gm/dl Globulin (2.5-4.0) gm/dl Albumin/Globulin Ratio (0.9-2) Triglycerides (0-150) mg/dl Cholesterol (0-200) mg/dl LDL Cholesterol, Calc mg/dl VLDL Cholesterol, Calc (0-30) mg/dl HDL Cholesterol mg/dl Cholesterol/HDL Ratio (0-5) Vitamin B12 547 (180-914) pg/ml Folate > 22.30 (>5.38) ng/ml TSH (0.300-4.500) uIu/ml Urine Color Urine Appearance (Clear) Urine pH (4.5-7.5) Ur Specific Paragon (1.000-1.030) Urine Protein (Negative) Urine Glucose (UA) (Negative) Urine Ketones (Negative) Urine Blood (Negative) Urine Nitrite (Negative) Urine Bilirubin (Negative) Urine Urobilinogen (Negative) Ur Leukocyte Esterase (Negative) Lyme Disease IgG Ab (Negative) Lyme Disease IgM Ab (Negative) SARS-CoV-2 (PCR) Hepatitis C Ab (EIA) Pending Hep C Ab Signal/Cutoff Pending SARS-CoV-2, RNA, NAAT (NEGATIVE) 05/01/22 05/01/22 05/01/22 Range/Units 05:04 05:04 05:04 WBC 5.82 (4.8-10.8) K/ul RBC 4.42 L (4.63-6.08) M/uL Hgb 12.7 L (14.0-18.0) g/dl Hct 38.1 L (40.1-51.0) % MCV 86.2 (80.0-100.0) fL MCH 28.7 (25.0-34.0) pg MCHC 33.3 (32.0-36.0) g/dL RDW Std Deviation 44.3 (36.4-46.3) fL RDW Coeff of Donnell 14.2 (11.5-14.5) % Plt Count 157 (130-400) K/uL MPV 10.0 (9.4-12.4) fL Immature Gran % (Auto) 0.2 % Neut % (Auto) 55.3 % Lymph % (Auto) 33.2 % Pickett % (Auto) 8.6 % Eos % (Auto) 1.7 % Baso % (Auto) 1.0 % Neut # (Auto) 3.22 (1.4-6.5) K/uL Lymph # (Auto) 1.93 (1.2-3.4) K/uL Pickett # (Auto) 0.50 (0.24-0.82) K/uL Eos # (Auto) 0.10 (0-0.50) K/uL Baso # (Auto) 0.06 (0-0.2) K/uL Immature Gran # (Auto) 0.01 (0.00-0.02) K/uL Platelet Estimate Normal (Normal) ESR 22 H (0-20) mm/hr PT (9.0-12.0) Seconds INR (0.9-1.1) APTT (21.0-31.0) Seconds PTT Ratio Sodium 142 (136-145) mmol/L Potassium 4.1 (3.5-5.1) mmol/L Chloride 108 H (98-107) mmol/L Carbon Dioxide 28 (21-32) mmol/L Anion Gap 6 (3-11) BUN 19 (6-23) mg/dl Creatinine 0.77 (0.6-1.4) mg/dl Est Cr Clr Drug Dosing 103.3 ml/min Est GFR ( Amer) 102.9 ml/min Est GFR (Non-Af Amer) 88.8 ml/min BUN/Creatinine Ratio 24.7 H (10-20) Glucose 101 H (70-99(Fasting)) mg/dl Estimat Average Glucose mg/dl Hemoglobin A1c (4.5-5.6) % Calcium 9.0 (8.5-10.1) mg/dl Magnesium (1.7-2.4) mg/dl Total Bilirubin 0.6 (0.2-1.0) mg/dl AST 17 (13-39) U/L ALT 13 (7-52) U/L Alkaline Phosphatase 69 (34-104) U/L C-Reactive Protein < 0.50 (0-0.5) mg/dl Total Protein 6.2 (6.0-8.3) gm/dl Albumin 3.7 (3.4-5.0) gm/dl Globulin 2.5 (2.5-4.0) gm/dl Albumin/Globulin Ratio 1.5 (0.9-2) Triglycerides 65 (0-150) mg/dl Cholesterol 97 (0-200) mg/dl LDL Cholesterol, Calc 50 mg/dl VLDL Cholesterol, Calc 13 (0-30) mg/dl HDL Cholesterol 34 mg/dl Cholesterol/HDL Ratio 2.9 (0-5) Vitamin B12 (180-914) pg/ml Folate (>5.38) ng/ml TSH (0.300-4.500) uIu/ml Urine Color Urine Appearance (Clear) Urine pH (4.5-7.5) Ur Specific Paragon (1.000-1.030) Urine Protein (Negative) Urine Glucose (UA) (Negative) Urine Ketones (Negative) Urine Blood (Negative) Urine Nitrite (Negative) Urine Bilirubin (Negative) Urine Urobilinogen (Negative) Ur Leukocyte Esterase (Negative) Lyme Disease IgG Ab (Negative) Lyme Disease IgM Ab (Negative) SARS-CoV-2 (PCR) Hepatitis C Ab (EIA) Hep C Ab Signal/Cutoff SARS-CoV-2, RNA, NAAT (NEGATIVE) 04/30/22 04/30/22 04/30/22 Range/Units 19:20 18:30 18:10 WBC (4.8-10.8) K/ul RBC (4.63-6.08) M/uL Hgb (14.0-18.0) g/dl Hct (40.1-51.0) % MCV (80.0-100.0) fL MCH (25.0-34.0) pg MCHC (32.0-36.0) g/dL RDW Std Deviation (36.4-46.3) fL RDW Coeff of Donnell (11.5-14.5) % Plt Count (130-400) K/uL MPV (9.4-12.4) fL Immature Gran % (Auto) % Neut % (Auto) % Lymph % (Auto) % Pickett % (Auto) % Eos % (Auto) % Baso % (Auto) % Neut # (Auto) (1.4-6.5) K/uL Lymph # (Auto) (1.2-3.4) K/uL Pickett # (Auto) (0.24-0.82) K/uL Eos # (Auto) (0-0.50) K/uL Baso # (Auto) (0-0.2) K/uL Immature Gran # (Auto) (0.00-0.02) K/uL Platelet Estimate (Normal) ESR (0-20) mm/hr PT (9.0-12.0) Seconds INR (0.9-1.1) APTT (21.0-31.0) Seconds PTT Ratio Sodium (136-145) mmol/L Potassium (3.5-5.1) mmol/L Chloride (98-107) mmol/L Carbon Dioxide (21-32) mmol/L Anion Gap (3-11) BUN (6-23) mg/dl Creatinine (0.6-1.4) mg/dl Est Cr Clr Drug Dosing ml/min Est GFR ( Amer) ml/min Est GFR (Non-Af Amer) ml/min BUN/Creatinine Ratio (10-20) Glucose (70-99(Fasting)) mg/dl Estimat Average Glucose mg/dl Hemoglobin A1c (4.5-5.6) % Calcium (8.5-10.1) mg/dl Magnesium (1.7-2.4) mg/dl Total Bilirubin (0.2-1.0) mg/dl AST (13-39) U/L ALT (7-52) U/L Alkaline Phosphatase (34-104) U/L C-Reactive Protein (0-0.5) mg/dl Total Protein (6.0-8.3) gm/dl Albumin (3.4-5.0) gm/dl Globulin (2.5-4.0) gm/dl Albumin/Globulin Ratio (0.9-2) Triglycerides (0-150) mg/dl Cholesterol (0-200) mg/dl LDL Cholesterol, Calc mg/dl VLDL Cholesterol, Calc (0-30) mg/dl HDL Cholesterol mg/dl Cholesterol/HDL Ratio (0-5) Vitamin B12 (180-914) pg/ml Folate (>5.38) ng/ml TSH (0.300-4.500) uIu/ml Urine Color Dark Yellow Urine Appearance Clear (Clear) Urine pH 5.5 (4.5-7.5) Ur Specific Paragon 1.027 (1.000-1.030) Urine Protein Negative (Negative) Urine Glucose (UA) Negative (Negative) Urine Ketones Trace H (Negative) Urine Blood Negative (Negative) Urine Nitrite Negative (Negative) Urine Bilirubin Negative (Negative) Urine Urobilinogen Negative (Negative) Ur Leukocyte Esterase Negative (Negative) Lyme Disease IgG Ab (Negative) Lyme Disease IgM Ab (Negative) SARS-CoV-2 (PCR) Cancelled Hepatitis C Ab (EIA) Hep C Ab Signal/Cutoff SARS-CoV-2, RNA, NAAT NEGATIVE (NEGATIVE) 04/30/22 04/30/22 04/30/22 Range/Units 17:02 17:02 17:02 WBC (4.8-10.8) K/ul RBC (4.63-6.08) M/uL Hgb (14.0-18.0) g/dl Hct (40.1-51.0) % MCV (80.0-100.0) fL MCH (25.0-34.0) pg MCHC (32.0-36.0) g/dL RDW Std Deviation (36.4-46.3) fL RDW Coeff of Donnell (11.5-14.5) % Plt Count (130-400) K/uL MPV (9.4-12.4) fL Immature Gran % (Auto) % Neut % (Auto) % Lymph % (Auto) % Pickett % (Auto) % Eos % (Auto) % Baso % (Auto) % Neut # (Auto) (1.4-6.5) K/uL Lymph # (Auto) (1.2-3.4) K/uL Pickett # (Auto) (0.24-0.82) K/uL Eos # (Auto) (0-0.50) K/uL Baso # (Auto) (0-0.2) K/uL Immature Gran # (Auto) (0.00-0.02) K/uL Platelet Estimate (Normal) ESR (0-20) mm/hr PT (9.0-12.0) Seconds INR (0.9-1.1) APTT (21.0-31.0) Seconds PTT Ratio Sodium 140 (136-145) mmol/L Potassium 4.5 (3.5-5.1) mmol/L Chloride 107 (98-107) mmol/L Carbon Dioxide 25 (21-32) mmol/L Anion Gap 8 (3-11) BUN 21 (6-23) mg/dl Creatinine 0.89 (0.6-1.4) mg/dl Est Cr Clr Drug Dosing 89.5 ml/min Est GFR ( Amer) 96.9 ml/min Est GFR (Non-Af Amer) 83.6 ml/min BUN/Creatinine Ratio 23.6 H (10-20) Glucose 95 (70-99(Fasting)) mg/dl Estimat Average Glucose mg/dl Hemoglobin A1c (4.5-5.6) % Calcium 9.5 (8.5-10.1) mg/dl Magnesium 2.1 (1.7-2.4) mg/dl Total Bilirubin 0.7 (0.2-1.0) mg/dl AST 20 (13-39) U/L ALT 14 (7-52) U/L Alkaline Phosphatase 77 (34-104) U/L C-Reactive Protein (0-0.5) mg/dl Total Protein 7.2 (6.0-8.3) gm/dl Albumin 4.1 (3.4-5.0) gm/dl Globulin 3.1 (2.5-4.0) gm/dl Albumin/Globulin Ratio 1.3 (0.9-2) Triglycerides (0-150) mg/dl Cholesterol (0-200) mg/dl LDL Cholesterol, Calc mg/dl VLDL Cholesterol, Calc (0-30) mg/dl HDL Cholesterol mg/dl Cholesterol/HDL Ratio (0-5) Vitamin B12 (180-914) pg/ml Folate (>5.38) ng/ml TSH 1.294 (0.300-4.500) uIu/ml Urine Color Urine Appearance (Clear) Urine pH (4.5-7.5) Ur Specific Paragon (1.000-1.030) Urine Protein (Negative) Urine Glucose (UA) (Negative) Urine Ketones (Negative) Urine Blood (Negative) Urine Nitrite (Negative) Urine Bilirubin (Negative) Urine Urobilinogen (Negative) Ur Leukocyte Esterase (Negative) Lyme Disease IgG Ab Negative (Negative) Lyme Disease IgM Ab Negative (Negative) SARS-CoV-2 (PCR) Hepatitis C Ab (EIA) Hep C Ab Signal/Cutoff SARS-CoV-2, RNA, NAAT (NEGATIVE) 04/30/22 04/30/22 Range/Units 17:02 17:02 WBC 8.39 (4.8-10.8) K/ul RBC 4.71 (4.63-6.08) M/uL Hgb 13.9 L (14.0-18.0) g/dl Hct 40.8 (40.1-51.0) % MCV 86.6 (80.0-100.0) fL MCH 29.5 (25.0-34.0) pg MCHC 34.1 (32.0-36.0) g/dL RDW Std Deviation 44.8 (36.4-46.3) fL RDW Coeff of Donnell 14.2 (11.5-14.5) % Plt Count 175 (130-400) K/uL MPV 10.3 (9.4-12.4) fL Immature Gran % (Auto) % Neut % (Auto) % Lymph % (Auto) % Pickett % (Auto) % Eos % (Auto) % Baso % (Auto) % Neut # (Auto) (1.4-6.5) K/uL Lymph # (Auto) (1.2-3.4) K/uL Pickett # (Auto) (0.24-0.82) K/uL Eos # (Auto) (0-0.50) K/uL Baso # (Auto) (0-0.2) K/uL Immature Gran # (Auto) (0.00-0.02) K/uL Platelet Estimate (Normal) ESR (0-20) mm/hr PT 11.3 (9.0-12.0) Seconds INR 1.1 (0.9-1.1) APTT 28.8 (21.0-31.0) Seconds PTT Ratio 1.0 Sodium (136-145) mmol/L Potassium (3.5-5.1) mmol/L Chloride (98-107) mmol/L Carbon Dioxide (21-32) mmol/L Anion Gap (3-11) BUN (6-23) mg/dl Creatinine (0.6-1.4) mg/dl Est Cr Clr Drug Dosing ml/min Est GFR ( Amer) ml/min Est GFR (Non-Af Amer) ml/min BUN/Creatinine Ratio (10-20) Glucose (70-99(Fasting)) mg/dl Estimat Average Glucose mg/dl Hemoglobin A1c (4.5-5.6) % Calcium (8.5-10.1) mg/dl Magnesium (1.7-2.4) mg/dl Total Bilirubin (0.2-1.0) mg/dl AST (13-39) U/L ALT (7-52) U/L Alkaline Phosphatase (34-104) U/L C-Reactive Protein (0-0.5) mg/dl Total Protein (6.0-8.3) gm/dl Albumin (3.4-5.0) gm/dl Globulin (2.5-4.0) gm/dl Albumin/Globulin Ratio (0.9-2) Triglycerides (0-150) mg/dl Cholesterol (0-200) mg/dl LDL Cholesterol, Calc mg/dl VLDL Cholesterol, Calc (0-30) mg/dl HDL Cholesterol mg/dl Cholesterol/HDL Ratio (0-5) Vitamin B12 (180-914) pg/ml Folate (>5.38) ng/ml TSH (0.300-4.500) uIu/ml Urine Color Urine Appearance (Clear) Urine pH (4.5-7.5) Ur Specific Paragon (1.000-1.030) Urine Protein (Negative) Urine Glucose (UA) (Negative) Urine Ketones (Negative) Urine Blood (Negative) Urine Nitrite (Negative) Urine Bilirubin (Negative) Urine Urobilinogen (Negative) Ur Leukocyte Esterase (Negative) Lyme Disease IgG Ab (Negative) Lyme Disease IgM Ab (Negative) SARS-CoV-2 (PCR) Hepatitis C Ab (EIA) Hep C Ab Signal/Cutoff SARS-CoV-2, RNA, NAAT (NEGATIVE) Hospital Course (1) Stroke-like symptoms: Presented upon referral for PCP for concerns for stroke due to 3 days of headache, left lower extremity weakness, abnormal gait.Slight LLE weakness, could be mechanical secondary to left hip/knee replacement. Initially reported slight decrease in sensation on R face, arm but has resolved. Does have decreased sensation in right leg which is chronic. No other pertinent neurologic findings on exam suggestive of CVA. Decreased sensation and gait abnormalities could be secondary to neuropathy. No history of cancer to raise concern for brain met dz. No back pain or leg numbness/tingling to indicate radiculopathy. On imaging: CT without contrast in ED without evidence of acute process, including hemorrhage, mass, midline shift, ischemic infarct. MRI with MRA head/neck showed complete occlusion of the right internal carotid artery. No acute infarct or intracranial hemorrhage. Atrophy and mild microvascular ischemic changes. Echo showed normal LV size with normal systolic function, EF= 60-65%, no regional wall motion abnormalities, mild LVH. Labs were significant for: - HbA1c= 5.6 - TSH, B12, folate, and lyme all wnl - Was monitored on telemetry without any events. Neurology saw the pt and felt it could be peripheral neuropathy or from a peripheral etiology including lumbosacral radiculopathy, femoral neuropathy, or spinal stenosis. He will follow up with neurology. We sent him with a scrip for PT. (2) Headache: -Headache present for the past 3 days. Describes at B/L, throbbing for at least 3 days without any nausea, vomiting, visual changes, headache, neck stiffness, meningeal signs. Did have transient right monocular vision loss 1 month ago. ESR= 22. Imaging negative. Most likely tension headache. We gave him a script 100mg gabapentin for 5 days per neurology recommendations. Also would recommend ice and to continue with the Tylenol as needed. He will follow with neurology if headache persists. (3) Neuropathy: - Chronic B/L neuropathy. Continue B12 supplementation. Patient also was doing acupuncture for this at one point, planning to restart as it has previously helped. CBC, CMP, lyme, TSH all wnl. (4) Bradycardia: - HR in 4050s, per previous records, symptoms baseline since the beginning of the year. He has been generally weak for a couple weeks, however denies lightheadedness, dizziness, presyncope or syncope, chest pain, shortness of breath. - EKG today with sinus bradycardia and first-degree AV block, right bundle branch block which was also seen on EKG from November. - Check for Lyme as above--negative. (5) Hypertension: - Patient notes his blood pressures this week have been quite high, consistently above 140, usually in the [id number] range occasionally systolic over 200. - Normotensive here, 131/73 now. - Continue on valsartan 160 mg daily, Norvasc 10 mg daily. (6) Hyperlipidemia: - Continue atorvastatin 20 gm daily. - Lipid Panel: total cholesterol= 97, LDL= 50, HDL= 34. - Consider increasing to high intensity statin as on outpatient, weighing risk vs. benefit as his LDL= 50. (7) Depression: - With PTSD, anxiety. [facility] - History of insomnia, although not currently requiring any medications for this. - Continue Zoloft 200 mg daily. (8) Alcohol use disorder: - Last drink 10 months ago. - Continue B12 (IM injections monthly) and folate supplementation - Continue naltrexone. (9) Fatty liver: - History of, with previous alcohol abuse. - LFTs within normal limits. Continue to follow with AM labs. Total Time Total Time Spent Total Time Spent (In Minutes): <30 Discharge Plan Discharge Items Patient Disposition: Home - Self-Care Reason For Visit: CVA R/O Discharge Diagnosis: Tension Headache, Neuropathy Activity: Resume your previous activity Non-emergency contact: Primary Care Provider and Neurologist Call non-emergency contact if: you have any medication questions and your pain is worsening Follow-up/Referrals: Olu Magallanes DO [Primary Care Provider] - Manuel Mark MD [Physician] - Diet: Regular Addtl Attending Provider Instructions: Leg Weakness Your leg weakness could be related to your neuropathy. The imaging of your head did not show any new signs of stroke or other pathology within your brain that had be causing the weakness. We would like you to continue with the B12 supplementation. It could also be traveling from you back to your legs and we would like you to follow up with the neurologist for further workout. We gave a prescription for physcial therapy. If you have new or worsening weakness or any new changes in sensations, please return to the ED. Headache Imaging on your head was did not show any signs of stroke or mass that could be causing your headache. It is most likely a tension headache, which comes from tight muscles in your neck. Continue with ice and Tylenol as needed. We sent a prescription for gabapentin to your pharmacy. You can take 100mg twice a day for headaches. If you headache gets worse or you develop blurred vision please return to the ED. A discharge summary will be sent to your primary care physician to ensure continuity of care. Please bring this discharge summary with you to your next office appointment so that your provider can review it at that time. Follow-up appointments: Make a follow-up appointment with your PCP within the next week. It is very important that you follow up with them shortly after discharge from the hospital. We have also requested an appointment for you to follow up with the neurologist. Pending Studies at Discharge: No Stand-Alone Forms: My [facility] Medications and DC Order Prescriptions: New gabapentin 100 mg capsule 100 mg PO BID 5 Days Qty: 10 0RF Continued thiamine HCl (vitamin B1) 100 mg tablet 100 mg PO QAM Qty: 90 3RF cyanocobalamin (vitamin B-12) 1,000 mcg/mL kit 1,000 mcg subcut MONTHLY Qty: 1 11RF PreserVision AREDS-2 [id number] ol-fkbd-ja-mg capsule 1 tab PO BID amlodipine 10 mg tablet 10 mg PO QAM Qty: 90 3RF ibuprofen [Advil] 200 mg Tablet 200 mg PO QAM atorvastatin 20 mg tablet 20 mg PO QAM sertraline [Zoloft] 100 mg tablet 200 mg PO QAM folic acid 1 mg tablet 1 mg PO QAM valsartan 160 mg tablet 160 mg PO QAM cholecalciferol (vitamin D3) 50 mcg (2,000 unit) capsule 50 mcg PO QAM naltrexone 50 mg Tablet 50 mg PO QAM omega-3 fatty acids Capsule 2,000 mg PO QAM Discharge Orders: Discharge Order (Routine); Ordered 05/01/22 Ordered By: Linda Asencio Admission Data Admit Date/Time: 04/30/22 19:11 Attending Provider: Wilfred Zhang Admit Provider: Bereket Layton Primary Care Provider: Olu Magallanes Other Providers: Bereket Layton ; Manuel Mark Supervising Physician Co-Signing Physician Notes I personally examined the patient and verified all pablo points of history and exa m, discussed case, and agree with decision making with Dr Asencio. Headache persists, but otherwise would like to go home. Vitals noted, in general he is awake and alert pleasant no distress. HEENT n ormocephalic atraumatic mucous membranes moist. Breathing unlabored no accessory muscle use good effort. Skin shows no rashes no pallor or icterus. Osteopathic/musculoskeletal shows his left greater than right suboccipital musculature to be high tone, tender, decreased range of motioninhibitory pressureimproved. Patient tolerated well. Headacheappears to been a tension headache. This is probably the cause of his spike in blood pressure, rather than the effect from it. Exceedingly highly unlikely to be hypertensive urgency given no blurred vision/confusion/etc. Rather it is probably that the pain from the headache spiked his blood pressure. Gabapentin discussed and appreciate neuro input. OMT as above. Ice to the back of the neck. Somatic dysfunction cervicalOMT as above Neuropathyoutpatient follow-up Cerebrovascular diseasechronic nothing acute. Continue aspirin and statin, will defer to PCP, but consider escalating statin to a higher dose just based on his existing vascular disease; at the same time, given his fairly low LDL the risk/benefit of this is much more nebulous. Stable for home, otherwise as above
--- NOTE | 2022-05-01 20:00 | Billing Data ---
Date of Service May 01, 2022 Coding Level of Care Code D/C DAY MANAGEMENT <30 MINS
--- NOTE | 2022-05-01 22:18 | Electrocardiogram Report ---
Test Reason : Blood Pressure : / mmHG Vent. Rate : 053 BPM Atrial Rate : 053 BPM P-R Int : 234 ms QRS Dur : 130 ms QT Int : 468 ms P-R-T Axes : 047 042 012 degrees QTc Int : 439 ms Sinus bradycardia with marked sinus arrhythmia with 1st degree A-V block Right bundle branch block Abnormal ECG When compared with ECG of 09-DEC-2021 10:50, No significant change was found Confirmed by Jens Esparza ([id number]) on 05/01/2022 10:18:09 PM Referred By: Olu Magallanes Confirmed By:Jens Esparza
--- NOTE | 2022-05-02 07:05 | Hospitalist Consultation ---
Date of Consultation May 01, 2022 History of Present Illness Attending Physician: Wilfred Zhang DO Allergies Allergy/AdvReac Type Severity Reaction Status Date / Time Penicillins Allergy Severe Anaphylaxis Verified 04/30/22 15:16 oxycodone AdvReac gi upset Verified 04/30/22 15:16 Home Medications Medication Instructions Recorded Confirmed Type vit C 250 mg-vit E 90 mg-zinc 40 1 tab PO BID 04/30/19 04/30/22 History mg-copper 1 [id number] capsule (PreserVision AREDS-2) thiamine HCl (vitamin B1) 100 mg 100 mg PO QAM #90 tabs 01/05/21 04/30/22 Rx tablet cyanocobalamin (vitamin B-12) 1,000 mcg subcut MONTHLY #1 ea 06/08/21 04/30/22 Rx 1,000 mcg/mL injection kit atorvastatin 20 mg tablet 20 mg PO QAM 09/21/21 04/30/22 History folic acid 1 mg tablet 1 mg PO QAM 09/21/21 04/30/22 History ibuprofen 200 mg tablet (Advil) 200 mg PO QAM 09/21/21 04/30/22 History sertraline 100 mg tablet (Zoloft) 200 mg PO QAM 09/21/21 04/30/22 History valsartan 160 mg tablet 160 mg PO QAM 09/21/21 04/30/22 History cholecalciferol (vitamin D3) 50 50 mcg PO QAM 11/26/21 04/30/22 History mcg (2,000 unit) capsule naltrexone 50 mg tablet 50 mg PO QAM 11/26/21 04/30/22 History omega-3 fatty acids 2,000 mg PO QAM 11/26/21 04/30/22 History amlodipine 10 mg tablet 10 mg PO QAM #90 tabs 01/19/22 04/30/22 Rx gabapentin 100 mg capsule 100 mg PO BID 5 days #10 caps 05/01/22 Rx Patient History Medical History Anxiety and depression Bradycardia Generalized osteoarthritis Hearing difficulty History of syncope Remote episode several years ago > felt "related to dehydration" Hyperlipidemia Hypertension Macular degeneration Neuropathy PTSD (post-traumatic stress disorder) Surgical History H/O colonoscopy Colonoscopy (09/25/21): MAC at [facility]. Repeat 5 yrs H/O eye surgery MACULAR PUCKER H/O sinus surgery History of arthroscopy LEFT KNEE History of cataract surgery RT History of cholecystectomy History of herniorrhaphy History of knee replacement LEFT History of tonsillectomy History of tooth extraction S/P hip replacement LEFT Status post reverse total replacement of right shoulder (~12/2021) Family History Mother Liver cancer Colorectal cancer Father Pancreatic cancer Uncle Myocardial infarction Other No family history of adverse response to anesthesia Denies family history of Ovarian cancer Prostate cancer Diabetes Breast cancer Lung cancer Stroke Social History Smoking Status: Never smoker Second Hand Exposure: No; Hx Alcohol Use: No Hx Substance Use: No Preferred Language: Mohawk Communication Ability: Effective Visual Impairment: Limited Hearing Ability: Normal Associate Pastor Required: No Beliefs That Will Affect Care: None marital status: Current Living Situation: Spouse current occupational status: retired How many Children do You have: 0 How many Children do You have Comment: 3 step children Feels Safe at Home: Yes Childhood Exposure to Second-Hand Smoke: Yes caffeine: Yes Dental Care, Regularly: No Physical Activity Frequency: Daily Physical Activity Frequency Comment: walks twice a day Seatbelt Use: always Sunscreen Use: No (wears a hat) Assistive Devices: None Results & Data Results & Data ([facility]) Vital Signs (Past 12 Hours) Vital Signs Temp Pulse Pulse Resp BP BP Pulse Ox 05/01/22 16:55 98.4 F 50 L 18 123/63 99 05/01/22 10:13 51 L 92 05/01/22 10:13 20 131/73 05/01/22 09:00 47 L O2 Del Method 05/01/22 16:55 Room Air 05/01/22 10:13 05/01/22 10:13 Room Air 05/01/22 09:00 PG Care Time/CCT Total # of Minutes Spent Total Time Spent with Patient: Total time spent is greater than 50% in coordination of care (as documented) at patient's floor/unit and/or counseling patient: Coding Level of Care Code None CPT Codes Musculoskeletal - Musculoskeletal: [address] Tr 1-2 Body regions ([id number])
== END 2022-05-01 17:00 | disposition home or self-care (01) ==
LOC: ED 16:32 → EDINP 19:11 → SUATTDRO 19:11 → INTOOBSV 19:11 → EDINP 22:12

== ENCOUNTER 2023-10-20 17:32 | Observation (INO) ==
--- NOTE | 2023-10-20 17:46 | ED Triage Note ---
Date of Service October 20, 2023 Provider in Triage Author: Jennifer Donovan History of Present Illness This patient was briefly evaluated while in triage. An abbreviated physical exam was performed. This patient is a 78-year-old Male who presents to the ED for evaluation of headaches, sweating, chills, and SOB. Symptoms started about 1 week ago. He saw his PCP today and they referred him to the ER for scans of his head and chest per patient. The patient states that his PCP was worried about a stroke. Physical Exam GENERAL: Non-toxic and in no acute distress. HEENT: Pupils equal. No obvious scleral icterus. HEART: Regular rate and rhythm. LUNGS: Clear to auscultation. No accessory muscle use. NEURO: Alert and oriented. No obvious neurological deficits on quick neuro exam. Initial orders for labs and / or imaging were placed and patient was placed in the waiting area until a bed is available. Please see further documentation for the full ED course. MDM / Impression Impression Impression: Headache, Dizziness Impression: Headache Qualifiers: Headache type: unspecified Headache chronicity pattern: acute headache Intractability: not intractable Qualified Code(s): R51.9 - Headache, unspecified
[2023-10-20 17:50] VITALS: TEMP 97.9
[2023-10-20 19:23] LABS: Basophils # (auto) 0.06 K/uL (0.00-0.20); Basophils % (auto) 0.7 %; Eosinophils # (auto) 0.09 K/uL (0.00-0.50); Eosinophils % (auto) 1.1 %; Hematocrit (blood only) 44.4 % (42.0-52.0); Hemoglobin 15.2 g/dl (14.0-18.0); Immature Granulocytes # (auto) 0.01 K/uL (0.01-0.20); Immature Granulocytes % (auto) 0.1 %; Lymphocytes # (auto) 2.46 K/uL (1.20-3.40); Mean Corpuscular Hemoglobin 31.1 pg (25.0-34.0); Mean Corpuscular Hgb Conc 34.2 g/dL (32.0-36.0); Mean Platelet Volume 11.1 fL (9.4-12.4); Monocytes # (auto) 0.59 K/uL (0.11-0.59); Monocytes % (auto) 7.2 %; Neutrophils % (auto) 60.9 %; Platelet Count 177 K/uL (130-400); RDW Coefficient of Variation 13.3 % (11.5-14.5); RDW Standard Deviation 44.3 fL (36.4-46.3); Red Blood Count 4.88 M/uL (4.70-6.10); White Blood Count 8.21 K/ul (4.8-10.8)
[2023-10-20 19:51] LABS: Albumin Level 4.4 gm/dl (3.4-5.0); Anion Gap 7 (3-11); Bilirubin,Total 0.7 mg/dl (0.2-1.0); Calcium 9.6 mg/dl (8.6-10.3); Carbon Dioxide 30 mmol/L (21-32); Chloride 103 mmol/L (98-107); Magnesium 2.1 mg/dl (1.7-2.4); Potassium 3.9 mmol/L (3.5-5.1); Sodium 140 mmol/L (136-145)
[2023-10-20 19:55] LABS: Troponin I High Sensitivity 5.4 pg/ml (0-20)
[2023-10-20 19:56] LABS: Partial Thromboplastin Ratio 0.9; Partial Thromboplastin Time 26 Seconds (21-31); Prothrombin Time 11.1 Seconds (9.0-12.0)
[2023-10-20 19:56] LABS: Adenovirus PCR Not Detected (NotDetected); Bordetella parapertussis PCR Not Detected (NotDetected); Bordetella pertussis PCR Not Detected (NotDetected); Chlamydia pneumoniae PCR Not Detected (NotDetected); Coronavirus 229E PCR Not Detected (NotDetected); Coronavirus CoV-2 (COVID19)PCR Not Detected (NotDetected); Coronavirus HKU1 PCR Not Detected (NotDetected); Coronavirus NL63 PCR Not Detected (NotDetected); Coronavirus OC43PCR Not Detected (NotDetected); Human Metapneumovirus PCR Not Detected (NotDetected); Influenza A PCR Not Detected (NotDetected); Influenza B PCR Not Detected (NotDetected); Mycoplasma pneumoniae PCR Not Detected (NotDetected); Parainfluenza Virus 1 PCR Not Detected (NotDetected); Parainfluenza Virus 2 PCR Not Detected (NotDetected); Parainfluenza Virus 3 PCR Not Detected (NotDetected); Parainfluenza Virus 4 PCR Not Detected (NotDetected); Respiratory Syncytial VirusPCR Not Detected (NotDetected); Rhinovirus/Enterovirus PCR Not Detected (NotDetected)
[2023-10-20 19:57] LABS: Alanine Aminotransferase 14 U/L (7-52); Albumin Globulin Ratio 1.2 (0.9-2); Alkaline Phosphatase 105 U/L (34-104); Aspartate Aminotransferase 23 U/L (13-39); BUN Creatinine Ratio 19.4 (10-20); Blood Urea Nitrogen 18 mg/dl (6-23); Est GFR (African American) 91.5 ml/min; Est GFR (Non-African American) 78.9 ml/min; Globulin 3.7 gm/dl (2.5-4.0); Glucose 97 mg/dl (70-99(Fasting)); Lipase 21 U/L (11-82); Total Protein 8.1 gm/dl (6.0-8.3)
[2023-10-20] MEDS: OPTIRAY 320 125ml IV ONE (21:03)
--- NOTE | 2023-10-20 21:48 | CT Scan Report ---
Exam(s): CT HEAD Without Contrast EXAM: CT Head Without Intravenous Contrast CLINICAL HISTORY: Headache, dizziness. TECHNIQUE: Axial computed tomography images of the head/brain without intravenous contrast. CTDI is 60.92 mGy and DLP is 961.59 mGy-cm. Automated exposure control was utilized for the study. A dose lowering technique was utilized adhering to the principles of ALARA. COMPARISON: CT head without contrast dated 04/30/2022 FINDINGS: Brain: No intracranial hemorrhage. No significant mass-effect. No evidence for cortical infarct. Similar parenchymal involutional changes. Mild periventricular deep white matter hypodense changes noted. Ventricles: No midline shift or ventriculomegaly. Bones/joints: Unremarkable. No acute fracture. Soft tissues: Unremarkable. Sinuses: Unremarkable as visualized. No acute sinusitis. Mastoid air cells: Unremarkable as visualized. No mastoid effusion. IMPRESSION: No acute intracranial process identified. Electronically signed by: Jose Armando Diana MD 10/20/23 21:47 PM
--- NOTE | 2023-10-20 21:57 | CT Scan Report ---
Exam(s): CTA CHEST IV Amt: 117 cc opti 320 EXAM: CT Chest With Intravenous Contrast CLINICAL HISTORY: Chest Pain, eval for PE. TECHNIQUE: Axial computed tomographic images of the chest with intravenous contrast. CTDI is 52.24 mGy and DLP is 26.12 mGy-cm. Automated exposure control was utilized for the study. A dose lowering technique was utilized adhering to the principles of ALARA. COMPARISON: No relevant prior studies available. FINDINGS: Pulmonary arteries: There is no evidence for pulmonary embolism. Aorta: Mild atherosclerotic calcification of the aorta. No dissection or aneurysm. Lungs: Curvilinear changes noted in the right lower lobe. No focal airspace consolidation. Pleural space: Unremarkable. No significant effusion. No pneumothorax. Heart: The cardiac chambers are normal in caliber. Mild coronary artery calcification. No pericardial effusion. Mediastinum: There is a soft tissue density structure in the anterior mediastinum measuring 2.2 x 1.6 x 3 cm, somewhat atypical for residual thymic tissue. Bones/joints: Degenerative changes of the left shoulder. A right shoulder arthroplasty is noted. No acute fracture. No dislocation. Soft tissues: Unremarkable. Lymph nodes: No mediastinal or hilar adenopathy. IMPRESSION: There is no evidence for pulmonary embolism. Electronically signed by: Jose Armando Diana MD 10/20/23 21:55 PM
[2023-10-20] MEDS: MECLIZINE HCL 25 MG TAB PO STA (21:59)
[2023-10-20] MEDS: ACETAMINOPHEN 1,000 MG/100 ML VIAL IV STA (22:00)
[2023-10-20] MEDS: SODIUM CHLORIDE 0.9% 500 ML IV STA (22:01)
--- NOTE | 2023-10-20 22:01 | CT Scan Report ---
Exam(s): CTA HEAD With Contrast IV Amt: 117 cc opti 320 EXAM: CT Angiography Head With Intravenous Contrast CLINICAL HISTORY: Headache, dizziness. TECHNIQUE: Axial computed tomographic angiography images of the head with intravenous contrast. CTDI is 52.24 mGy and DLP is 26.12 mGy-cm. Automated exposure control was utilized for the study. A dose lowering technique was utilized adhering to the principles of ALARA. MIP reconstructed images were created and reviewed. CONTRAST: Patient received 117 cc opti 320 of IV contrast COMPARISON: No relevant prior studies available. 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 There is reconstitution at the cavernous segment with the artery markedly hypoplastic measuring only 1-2 mm. In the distal cavernous segment there is recurrent critical stenosis noted with the supraclinoid segment patent, presumably from collateral filling. No aneurysm. Right anterior cerebral artery: The right A1 segment is hypoplastic. The right anterior cerebral artery is patent. There is a anterior communicating artery noted. No occlusion or significant stenosis. No aneurysm. Right middle cerebral artery: The right M1 segment is patent without stenosis or occlusion. No aneurysm. Right posterior cerebral artery: There is a right posterior communicating artery noted. No occlusion or significant stenosis. No aneurysm. Right vertebral artery: Unremarkable as visualized. Left internal carotid artery: No acute findings. Intracranial segment is patent with no significant stenosis. No aneurysm. Left anterior cerebral artery: The left A1 segment is patent. The left anterior cerebral artery is patent without stenosis or occlusion. No aneurysm. Left middle cerebral artery: Unremarkable. No occlusion or significant stenosis. No aneurysm. Left posterior cerebral artery: There is a origin of the left posterior cerebral artery via the posterior communicating artery. No occlusion or significant stenosis. No aneurysm. Left vertebral artery: Unremarkable as visualized. Basilar artery: Unremarkable. No occlusion or significant stenosis. No aneurysm. Other findings: The right M2/M3 branches are patent without appreciable stenosis. IMPRESSION: 1. 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 There is reconstitution at the cavernous segment with the artery markedly hypoplastic, measuring only 1-2 mm. In the distal cavernous segment there is recurrent critical stenosis noted with the supraclinoid segment patent, presumably from collateral filling. 2. The right anterior cerebral and middle cerebral arteries are patent. 3. Otherwise negative intracranial CTA examination. Electronically signed by: Jose Armando Diana MD 10/20/23 22:00 PM
--- NOTE | 2023-10-20 22:04 | CT Scan Report ---
Exam(s): CTA NECK With Contrast IV Amt: 117 cc opti 320 EXAM: CT Angiography Neck With Intravenous Contrast CLINICAL HISTORY: Headache, dizziness. TECHNIQUE: Routine carotid CT angiography protocol was performed with intravenous contrast. NASCET criteria using the distal ICAs for comparison were used for evaluation of stenoses. CTDI is 19.24 mGy and DLP is 1203.44 mGy-cm. Automated exposure control was utilized for the study. A dose lowering technique was utilized adhering to the principles of ALARA. MIP reconstructed images were created and reviewed. CONTRAST: Patient received 117 cc opti 320 of IV contrast COMPARISON: None. FINDINGS: VASCULATURE: Right common carotid artery: Unremarkable. No occlusion or significant stenosis. No dissection. Right internal carotid artery: The right internal carotid artery occludes at the bifurcation and remains occluded to the skull base. Right external carotid artery: Unremarkable. No occlusion. Right vertebral artery: Unremarkable. No occlusion or significant stenosis. No dissection. Left common carotid artery: Unremarkable. No occlusion or significant stenosis. No dissection. Left internal carotid artery: Unremarkable. Extracranial segment is patent with no occlusion or significant stenosis. No dissection. Left external carotid artery: There is at least moderate narrowing with atherosclerotic disease of the proximal left external carotid artery. The distal branches are patent. Left vertebral artery: Unremarkable. No occlusion or significant stenosis. No dissection. Brachiocephalic and subclavian arteries: There is a bovine configuration of the proximal great vessels without significant ostial stenosis. Aorta: The aortic arch is patent without dissection or aneurysm. NECK: Bones/joints: Unremarkable. No acute fracture. Soft tissues: Unremarkable. Lung apices: Clear. CAROTID STENOSIS REFERENCE USING NASCET CRITERIA: % ICA stenosis = (1 - narrowest ICA diameter/diameter of distal cervical ICA) x 100. Mild - <50% stenosis. Moderate - 50-69% stenosis. Severe - 70-94% stenosis. Near occlusion - 95-99% stenosis. Occluded - 100% stenosis. IMPRESSION: 1. 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 2. The right common carotid artery is patent without stenosis. The left common and external carotid arteries are patent. No stenosis or occlusion. The vertebral arteries are codominant and are patent without stenosis or occlusion. Electronically signed by: Jose Armando Diana MD 10/20/23 22:03 PM
[2023-10-20 23:45] LABS: Troponin I High Sensitivity 6.1 pg/ml (0-20)
--- NOTE | 2023-10-20 23:46 | History & Physical Report ---
Date of Service October 20, 2023 Assessment & Plan (1) Dizziness: (2) Headache: (3) Mitral regurgitation: (4) Peripheral arterial disease with history of revascularization: (5) GEIGER (dyspnea on exertion): (6) Complex sleep apnea syndrome: (7) PAC (premature atrial contraction): Plan TIA/Stroke Rule Out | Headache -Ongoing symptoms of headache, some dizziness for approximately 1 week -CTA head/neck: "the right internal carotid artery occludes at the bifurcation and remains occluded to the skull base". -Increased home atorvastatin to 80mg, switched from aspirin to Plavix -Neurology consulted, appreciate recommendations -Continue neuro checks -Monitor on telemetry Hypertension -Home meds include amlodipine, valsartan-HCTZ -Considering decreased perfusion with existing right ICA occlusion, could discuss altering regimen to allow some permissive hypertension -Will continue home meds at this time, appreciate neurology recommendations Abdominal Discomfort -Had some intermittent lower abdominal discomfort on exam in ED -CT A/P obtained, shows moderate stool burden -Will start bowel regimen History of Alcohol Use Disorder -Continue Naltrexone daily Obstructive Sleep Apnea -Continue use of CPAP nightly Admit to: Med/tele Diet: Heart Healthy VTE Prophylaxis: Lovenox Code Status: Full Code History of Present Illness Primary Care Provider: Olu Magallanes DO Reynold Yeung is a 78 year-old male with a past medical history of PAD, HTN, HLD, mitral regurgitation who presents to the ED for concerns of ongoing headache and some dizziness. Notes that he went to his eye doctor as he was wondering if his vision was worsening to cause a headache, notes his eye doctor evaluated him and recommended he see his PCP. He was evaluated at his PCP who had concern that given his known right ICA occlusion, had concern of TIA/stroke. Patient state he has about 1 week of symptoms, notes his headache is "all over" his head and usually responds to aspirin for pain relief. He has had some intermittent shortness of breath but this has seemed unrelated. His denies any slurred speech or confusion. He states the only change in medication was his Lyrica was increased about 1 month ago. Notes some intermittent abdominal discomfort, states he has had issues with constipation before. ED Course: -CTA head/neck -CT brain, CT A/P, Chest XR -Respiratory biofire Allergies Allergy/AdvReac Type Severity Reaction Status Date / Time Penicillins Allergy Severe Anaphylaxis Verified 10/20/23 21:46 oxycodone AdvReac Intermediate gi upset Verified 10/20/23 21:46 Home Medications Medication Instructions Recorded Confirmed Type vit C 250 mg-vit E 90 mg-zinc 40 1 tab PO BID 04/30/19 10/20/23 History mg-copper 1 [id number] capsule (PreserVision AREDS-2) cholecalciferol (vitamin D3) 50 50 mcg PO QAM 11/26/21 10/20/23 History mcg (2,000 unit) capsule naltrexone 50 mg tablet 50 mg PO QAM 11/26/21 10/20/23 History amlodipine 10 mg tablet 10 mg PO QAM #90 tabs 01/19/22 10/20/23 Rx atorvastatin 40 mg tablet 40 mg PO QAM #90 tabs 05/05/22 10/20/23 Rx valsartan 160 1 tab PO DAILY #90 tabs 08/27/22 10/20/23 Rx mg-hydrochlorothiazide 12.5 mg tablet pregabalin 75 mg capsule (Lyrica) 75 mg PO BID #30 caps 12/01/22 10/20/23 Rx aspirin 81 mg tablet,delayed 81 mg PO DAILY 04/11/23 10/20/23 History release (Adult Aspirin Regimen) mecobalamin (vitamin B12) 1,000 1,000 mcg sublingual DAILY 04/11/23 10/20/23 History mcg disintegrating tablet,sublingual Past Med/Surg History Medical History Bradycardia Headache Stroke-like symptoms Macular degeneration Anxiety and depression Neuropathy History of syncope Remote episode several years ago > felt "related to dehydration" PTSD (post-traumatic stress disorder) Generalized osteoarthritis Hypertension Hyperlipidemia Hearing difficulty Surgical History Status post reverse total replacement of right shoulder (~12/2021) History of arthroscopy LEFT KNEE History of herniorrhaphy History of cholecystectomy History of tooth extraction History of tonsillectomy H/O eye surgery MACULAR PUCKER H/O sinus surgery History of cataract surgery RT H/O colonoscopy Colonoscopy (09/25/21): MAC at [facility]. Repeat 5 yrs History of knee replacement LEFT S/P hip replacement LEFT Family History Mother Liver cancer Colorectal cancer Father Pancreatic cancer Uncle Myocardial infarction Other No family history of adverse response to anesthesia Denies family history of Ovarian cancer Prostate cancer Diabetes Breast cancer Lung cancer Stroke Social History Smoking Status: Never smoker Second Hand Exposure: No; Do You Dip or Chew Tobacco: No; Hx Alcohol Use: Yes Alcohol type: wine Alcohol Intake Frequency: 4 or More x per/Week Hx Substance Use: No Preferred Language: Jordanian Communication Ability: Effective Visual Impairment: Limited Hearing Ability: Normal Licensed Electrician Required: No Beliefs That Will Affect Care: None marital status: Current Living Situation: Spouse current occupational status: retired How many Children do You have: 0 How many Children do You have Comment: 3 step children Feels Safe at Home: Yes Childhood Exposure to Second-Hand Smoke: Yes caffeine: Yes Dental Care, Regularly: No Physical Activity Frequency: Daily Physical Activity Frequency Comment: walks twice a day Seatbelt Use: always Sunscreen Use: No (wears a hat) Assistive Devices: Cane, CPAP and Glasses Review of Systems Review of Systems: As per above Physical Exam Constitutional: WD/WN, vitals as above Eyes: + anicteric sclerae; no conjunctival abn ormality ENMT: Ears: no external ear abnormality Nose: no external nose abnormality moist mucous membranes Respiratory: normal respiratory effort, lungs clear to auscultation Cardiovascular: Rate/Rhythm: regular rate and regular rhythm Extremities: no edema Gastrointestinal (Abdomen): Inspection/Auscultation: abdomen normal to inspection Percussion/Palpation: abdomen soft; abdomen nontender and no guarding Skin: no rashes, warm and dry Neurologic: normal touch/pain/proprioception and CN's II-XI intact bilaterally; no focal motor deficits Psychiatric: A+Ox3, euthymic affect Results & Data Results & Data Vital Signs (Past 12 Hours) Vital Signs Temp Pulse Pulse Resp BP BP Pulse Ox 10/20/23 22:30 97 10/20/23 22:30 50 L 19 138/70 97 10/20/23 22:26 56 L 10/20/23 17:47 36.6 C 62 18 150/60 H 94 O2 Del Method 10/20/23 22:30 Room Air 10/20/23 22:30 Room Air 10/20/23 22:26 10/20/23 17:47 Room Air Diagnostic Findings Head CT 10/20/23 17:50 Exam(s): CT HEAD Without Contrast EXAM: CT Head Without Intravenous Contrast CLINICAL HISTORY: Headache, dizziness. TECHNIQUE: Axial computed tomography images of the head/brain without intravenous contrast. CTDI is 60.92 mGy and DLP is 961.59 mGy-cm. Automated exposure control was utilized for the study. A dose lowering technique was utilized adhering to the principles of ALARA. COMPARISON: CT head without contrast dated 04/30/2022 FINDINGS: Brain: No intracranial hemorrhage. No significant mass-effect. No evidence for cortical infarct. Similar parenchymal involutional changes. Mild periventricular deep white matter hypodense changes noted. Ventricles: No midline shift or ventriculomegaly. Bones/joints: Unremarkable. No acute fracture. Soft tissues: Unremarkable. Sinuses: Unremarkable as visualized. No acute sinusitis. Mastoid air cells: Unremarkable as visualized. No mastoid effusion. IMPRESSION: No acute intracranial process identified. Electronically signed by: Jose Armando Diana MD 10/20/23 21:47 PM Head CTA 10/20/23 17:50 Exam(s): CTA HEAD With Contrast IV Amt: 117 cc opti 320 EXAM: CT Angiography Head With Intravenous Contrast CLINICAL HISTORY: Headache, dizziness. TECHNIQUE: Axial computed tomographic angiography images of the head with intravenous contrast. CTDI is 52.24 mGy and DLP is 26.12 mGy-cm. Automated exposure control was utilized for the study. A dose lowering technique was utilized adhering to the principles of ALARA. MIP reconstructed images were created and reviewed. CONTRAST: Patient received 117 cc opti 320 of IV contrast COMPARISON: No relevant prior studies available. 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 There is reconstitution at the cavernous segment with the artery markedly hypoplastic measuring only 1-2 mm. In the distal cavernous segment there is recurrent critical stenosis noted with the supraclinoid segment patent, presumably from collateral filling. No aneurysm. Right anterior cerebral artery: The right A1 segment is hypoplastic. The right anterior cerebral artery is patent. There is a anterior communicating artery noted. No occlusion or significant stenosis. No aneurysm. Right middle cerebral artery: The right M1 segment is patent without stenosis or occlusion. No aneurysm. Right posterior cerebral artery: There is a right posterior communicating artery noted. No occlusion or significant stenosis. No aneurysm. Right vertebral artery: Unremarkable as visualized. Left internal carotid artery: No acute findings. Intracranial segment is patent with no significant stenosis. No aneurysm. Left anterior cerebral artery: The left A1 segment is patent. The left anterior cerebral artery is patent without stenosis or occlusion. No aneurysm. Left middle cerebral artery: Unremarkable. No occlusion or significant stenosis. No aneurysm. Left posterior cerebral artery: There is a origin of the left posterior cerebral artery via the posterior communicating artery. No occlusion or significant stenosis. No aneurysm. Left vertebral artery: Unremarkable as visualized. Basilar artery: Unremarkable. No occlusion or significant stenosis. No aneurysm. Other findings: The right M2/M3 branches are patent without appreciable stenosis. IMPRESSION: 1. 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 There is reconstitution at the cavernous segment with the artery markedly hypoplastic, measuring only 1-2 mm. In the distal cavernous segment there is recurrent critical stenosis noted with the supraclinoid segment patent, presumably from collateral filling. 2. The right anterior cerebral and middle cerebral arteries are patent. 3. Otherwise negative intracranial CTA examination. Electronically signed by: Jose Armando Diana MD 10/20/23 22:00 PM Neck CTA 10/20/23 17:50 Exam(s): CTA NECK With Contrast IV Amt: 117 cc opti 320 EXAM: CT Angiography Neck With Intravenous Contrast CLINICAL HISTORY: Headache, dizziness. TECHNIQUE: Routine carotid CT angiography protocol was performed with intravenous contrast. NASCET criteria using the distal ICAs for comparison were used for evaluation of stenoses. CTDI is 19.24 mGy and DLP is 1203.44 mGy-cm. Automated exposure control was utilized for the study. A dose lowering technique was utilized adhering to the principles of ALARA. MIP reconstructed images were created and reviewed. CONTRAST: Patient received 117 cc opti 320 of IV contrast COMPARISON: None. FINDINGS: VASCULATURE: Right common carotid artery: Unremarkable. No occlusion or significant stenosis. No dissection. Right internal carotid artery: The right internal carotid artery occludes at the bifurcation and remains occluded to the skull base. Right external carotid artery: Unremarkable. No occlusion. Right vertebral artery: Unremarkable. No occlusion or significant stenosis. No dissection. Left common carotid artery: Unremarkable. No occlusion or significant stenosis. No dissection. Left internal carotid artery: Unremarkable. Extracranial segment is patent with no occlusion or significant stenosis. No dissection. Left external carotid artery: There is at least moderate narrowing with atherosclerotic disease of the proximal left external carotid artery. The distal branches are patent. Left vertebral artery: Unremarkable. No occlusion or significant stenosis. No dissection. Brachiocephalic and subclavian arteries: There is a bovine configuration of the proximal great vessels without significant ostial stenosis. Aorta: The aortic arch is patent without dissection or aneurysm. NECK: Bones/joints: Unremarkable. No acute fracture. Soft tissues: Unremarkable. Lung apices: Clear. CAROTID STENOSIS REFERENCE USING NASCET CRITERIA: % ICA stenosis = (1 - narrowest ICA diameter/diameter of distal cervical ICA) x 100. Mild - <50% stenosis. Moderate - 50-69% stenosis. Severe - 70-94% stenosis. Near occlusion - 95-99% stenosis. Occluded - 100% stenosis. IMPRESSION: 1. 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 2. The right common carotid artery is patent without stenosis. The left common and external carotid arteries are patent. No stenosis or occlusion. The vertebral arteries are codominant and are patent without stenosis or occlusion. Electronically signed by: Jose Armando Diana MD 10/20/23 22:03 PM Chest CTA 10/20/23 17:51 Exam(s): CTA CHEST IV Amt: 117 cc opti 320 EXAM: CT Chest With Intravenous Contrast CLINICAL HISTORY: Chest Pain, eval for PE. TECHNIQUE: Axial computed tomographic images of the chest with intravenous contrast. CTDI is 52.24 mGy and DLP is 26.12 mGy-cm. Automated exposure control was utilized for the study. A dose lowering technique was utilized adhering to the principles of ALARA. COMPARISON: No relevant prior studies available. FINDINGS: Pulmonary arteries: There is no evidence for pulmonary embolism. Aorta: Mild atherosclerotic calcification of the aorta. No dissection or aneurysm. Lungs: Curvilinear changes noted in the right lower lobe. No focal airspace consolidation. Pleural space: Unremarkable. No significant effusion. No pneumothorax. Heart: The cardiac chambers are normal in caliber. Mild coronary artery calcification. No pericardial effusion. Mediastinum: There is a soft tissue density structure in the anterior mediastinum measuring 2.2 x 1.6 x 3 cm, somewhat atypical for residual thymic tissue. Bones/joints: Degenerative changes of the left shoulder. A right shoulder arthroplasty is noted. No acute fracture. No dislocation. Soft tissues: Unremarkable. Lymph nodes: No mediastinal or hilar adenopathy. IMPRESSION: There is no evidence for pulmonary embolism. Electronically signed by: Jose Armando Diana MD 10/20/23 21:55 PM Abdomen/Pelvis CT 10/20/23 21:48 Exam(s): CT ABDOMEN + PELVIS Without Contrast EXAM: CT Abdomen and Pelvis Without Intravenous Contrast CLINICAL HISTORY: LLQ pain. TECHNIQUE: Axial computed tomography images of the abdomen and pelvis without intravenous contrast. CTDI is 27.67 mGy and DLP is 1447.08 mGy-cm. Automated exposure control was utilized for the study. A dose lowering technique was utilized adhering to the principles of ALARA. COMPARISON: No relevant prior studies available. FINDINGS: Lung bases: Curvilinear changes noted at the lung bases. No consolidation. ABDOMEN: Liver: Unremarkable. Gallbladder and bile ducts: Cholecystectomy. No ductal dilation. Pancreas: Unremarkable. No ductal dilation. Spleen: Unremarkable. No splenomegaly. Adrenals: Unremarkable. No mass. Kidneys and ureters: There is excreted contrast in the renal collecting systems and ureters. No hydronephrosis or obstructing nephrolithiasis. Stomach and bowel: Stomach is mildly distended with retained oral contents. No gastric mucosal thickening. No evidence for focal high- grade bowel obstruction. Moderate stool burden throughout the colon is noted. Diverticulosis of the sigmoid colon. No obvious diverticulitis. PELVIS: Appendix: A normal caliber appendix is noted posterior to the cecum. Bladder: The bladder is mild to moderately distended with excreted contrast in the posterior aspect of the bladder. No bladder wall thickening. No stones. Reproductive: Unremarkable as visualized. ABDOMEN and PELVIS: Intraperitoneal space: Unremarkable. No free air. No significant fluid collection. Bones/joints: A left total hip arthroplasty is noted. Degenerative changes of the lumbar spine. No acute fracture. No dislocation. Soft tissues: Unremarkable. Vasculature: Atherosclerotic calcification of the normal caliber aorta. No abdominal aortic aneurysm. Lymph nodes: Unremarkable. No enlarged lymph nodes. IMPRESSION: No evidence for focal high-grade bowel obstruction. Moderate stool burden throughout the colon is noted. Diverticulosis of the sigmoid colon. No obvious diverticulitis. No free intraperitoneal fluid or pneumoperitoneum. Electronically signed by: Jose Armando Diana MD 10/21/23 00:13 AM Supervising Physician Co-Signing Physician Notes Attending addendum: I have physically seen this patient, have supervised the medical residents activities, and agree with the H&P unless as otherwise noted. Assessment and Plan: TIA/strokelike symptoms/headache/hypertension- Symptoms of headache and dizziness for about [address] head, CTA head and neck shows similar occlusion of right ICA from bifurcation to base of skull and intracranial narrowings, similar to MRI of 04/30/2022 Will repeat MRI for comparison to 04/30/2022 Would allow blood pressure to remain higher inpatient and outpatient, to allow better perfusion perfusion, allowing systolic blood pressure to be above 160 Change aspirin 81 mg daily to clopidogrel 75 mg daily Increase atorvastatin 40 to 80 mg daily Would consider holding/decreasing dosing of amlodipine and valsartan-HCTZ on a long-term basis Neurology to see patient in a.m. History of alcohol use disorder- Continue naltrexone NAYA- Continue CPAP Resident Activity Tracking Resident Involvement: Resident Care Provided Care Provided: Adult Hospital Medicine (2) Headache Headache chronicity pattern: acute headache Headache type: unspecified Intractability: not intractable Qualified Code(s): R51.9 - Headache, unspecified
[2023-10-20 23:55] LABS: Thyroid Stimulating Hormone 1.877 uIu/ml (0.300-4.500)
--- NOTE | 2023-10-21 | Emergency Department Note ---
History of Present Illness General Chief complaint: Illness Stated complaint: HEADACHES, SOB, SWEATS, DIZZY Time Seen by Provider: 10/20/23 21:38 History of Present Illness Maximum Pain Intensity: 4 This 78-year-old male presents to the ER referred from the PCP for possible stroke evaluation. Patient states he had a headache and neck pain for the past few weeks and feeling dizzy. He is also had some mild shortness of breath. Patient denies chest pain, fever, chills, cough, congestion, flulike illness. He also developed some abdominal pain while waiting to be seen in the ER. Home Medications Medication Instructions Recorded Confirmed Type vit C 250 mg-vit E 90 mg-zinc 40 1 tab PO BID 04/30/19 10/20/23 History mg-copper 1 [id number] capsule (PreserVision AREDS-2) cholecalciferol (vitamin D3) 50 50 mcg PO QAM 11/26/21 10/20/23 History mcg (2,000 unit) capsule naltrexone 50 mg tablet 50 mg PO QAM 11/26/21 10/20/23 History amlodipine 10 mg tablet 10 mg PO QAM #90 tabs 01/19/22 10/20/23 Rx atorvastatin 40 mg tablet 40 mg PO QAM #90 tabs 05/05/22 10/20/23 Rx valsartan 160 1 tab PO DAILY #90 tabs 08/27/22 10/20/23 Rx mg-hydrochlorothiazide 12.5 mg tablet pregabalin 75 mg capsule (Lyrica) 75 mg PO BID #30 caps 12/01/22 10/20/23 Rx aspirin 81 mg tablet,delayed 81 mg PO DAILY 04/11/23 10/20/23 History release (Adult Aspirin Regimen) mecobalamin (vitamin B12) 1,000 1,000 mcg sublingual DAILY 04/11/23 10/20/23 History mcg disintegrating tablet,sublingual Allergies Allergy/AdvReac Type Severity Reaction Status Date / Time Penicillins Allergy Severe Anaphylaxis Verified 10/20/23 21:46 oxycodone AdvReac Intermediate gi upset Verified 10/20/23 21:46 Past Med/Surg History Medical History Bradycardia Headache Stroke-like symptoms Macular degeneration Anxiety and depression Neuropathy History of syncope Remote episode several years ago > felt "related to dehydration" PTSD (post-traumatic stress disorder) Generalized osteoarthritis Hypertension Hyperlipidemia Hearing difficulty Surgical History Status post reverse total replacement of right shoulder (~12/2021) History of arthroscopy LEFT KNEE History of herniorrhaphy History of cholecystectomy History of tooth extraction History of tonsillectomy H/O eye surgery MACULAR PUCKER H/O sinus surgery History of cataract surgery RT H/O colonoscopy Colonoscopy (09/25/21): MAC at [facility]. Repeat 5 yrs History of knee replacement LEFT S/P hip replacement LEFT Family History Mother Liver cancer Colorectal cancer Father Pancreatic cancer Uncle Myocardial infarction Other No family history of adverse response to anesthesia Denies family history of Ovarian cancer Prostate cancer Diabetes Breast cancer Lung cancer Stroke Social History Smoking Status: Never smoker Second Hand Exposure: No; Do You Dip or Chew Tobacco: No; Hx Alcohol Use: No Hx Substance Use: No Preferred Language: Mauritanian Communication Ability: Effective Visual Impairment: Limited Hearing Ability: Normal Tooth Cutter Contact Wheel Required: No Beliefs That Will Affect Care: None marital status: Current Living Situation: Spouse current occupational status: retired How many Children do You have: 0 How many Children do You have Comment: 3 step children Feels Safe at Home: Yes Childhood Exposure to Second-Hand Smoke: Yes caffeine: Yes Dental Care, Regularly: No Physical Activity Frequency: Daily Physical Activity Frequency Comment: walks twice a day Seatbelt Use: always Sunscreen Use: No (wears a hat) Assistive Devices: None Review of Systems A total of 10 systems reviewed and were otherwise negative Physical Exam Vital Signs Vital Signs - 24 hr 10/20/23 17:47 10/20/23 22:26 10/20/23 22:27 Temperature 36.6 C Temperature Source Temporal Artery Scan Pulse Rate 62 56 L 55 L Pulse Rate [Apical] Pulse Rate from SpO2 Sensor 54 L Pulse Rhythm [Apical] Pulse Strength [Apical] Respiratory Rate 18 18 Respiratory Effort / Characteristics Non-Labored Spontaneous Respiratory Depth Normal Respiratory Pattern Regular Blood Pressure 150/60 H Blood Pressure [Right Arm] Blood Pressure Mean 90 Blood Pressure Mean [Right Arm] Blood Pressure Position Sitting Pulse Oximetry 94 95 Oxygen Delivery Method Room Air Sepsis Recent Fever Within 48 Hours No Sepsis New/Unexplained Change in Mental Status N/A Sepsis Action Taken by Nursing No Action Required 10/20/23 22:30 10/20/23 22:30 10/20/23 22:44 Temperature Temperature Source Pulse Rate 55 L Pulse Rate [Apical] 50 L Pulse Rate from SpO2 Sensor 54 L Pulse Rhythm [Apical] Regular Pulse Strength [Apical] Normal Respiratory Rate 19 10 L Respiratory Effort / Characteristics Non-Labored Spontaneous Respiratory Depth Normal Respiratory Pattern Blood Pressure 139/74 Blood Pressure [Right Arm] 138/70 Blood Pressure Mean 95 Blood Pressure Mean [Right Arm] 92 Blood Pressure Position Pulse Oximetry 97 97 96 Oxygen Delivery Method Room Air Room Air Sepsis Recent Fever Within 48 Hours Sepsis New/Unexplained Change in Mental Status Sepsis Action Taken by Nursing 10/20/23 22:50 10/20/23 23:00 10/20/23 23:10 Temperature Temperature Source Pulse Rate 48 L 52 L 53 L Pulse Rate [Apical] Pulse Rate from SpO2 Sensor 49 L 52 L 52 L Pulse Rhythm [Apical] Pulse Strength [Apical] Respiratory Rate 15 19 13 Respiratory Effort / Characteristics Respiratory Depth Respiratory Pattern Blood Pressure Blood Pressure [Right Arm] Blood Pressure Mean Blood Pressure Mean [Right Arm] Blood Pressure Position Pulse Oximetry 96 94 96 Oxygen Delivery Method Sepsis Recent Fever Within 48 Hours Sepsis New/Unexplained Change in Mental Status Sepsis Action Taken by Nursing 10/20/23 23:20 10/20/23 23:30 10/20/23 23:32 Temperature Temperature Source Pulse Rate 49 L 50 L 48 L Pulse Rate [Apical] Pulse Rate from SpO2 Sensor 48 L 49 L 48 L Pulse Rhythm [Apical] Pulse Strength [Apical] Respiratory Rate 13 20 17 Respiratory Effort / Characteristics Respiratory Depth Respiratory Pattern Blood Pressure 134/65 Blood Pressure [Right Arm] Blood Pressure Mean 88 Blood Pressure Mean [Right Arm] Blood Pressure Position Pulse Oximetry 94 93 93 Oxygen Delivery Method Sepsis Recent Fever Within 48 Hours Sepsis New/Unexplained Change in Mental Status Sepsis Action Taken by Nursing 10/20/23 23:40 10/20/23 23:50 10/21/23 00:00 Temperature Temperature Source Pulse Rate 45 L 51 L 47 L Pulse Rate [Apical] Pulse Rate from SpO2 Sensor 46 L 49 L 48 L Pulse Rhythm [Apical] Pulse Strength [Apical] Respiratory Rate 21 18 14 Respiratory Effort / Characteristics Respiratory Depth Respiratory Pattern Blood Pressure 132/69 Blood Pressure [Right Arm] Blood Pressure Mean 90 Blood Pressure Mean [Right Arm] Blood Pressure Position Pulse Oximetry 94 94 95 Oxygen Delivery Method Sepsis Recent Fever Within 48 Hours Sepsis New/Unexplained Change in Mental Status Sepsis Action Taken by Nursing 10/21/23 00:10 10/21/23 00:20 10/21/23 00:30 Temperature Temperature Source Pulse Rate 53 L 61 53 L Pulse Rate [Apical] Pulse Rate from SpO2 Sensor 55 L 56 L 53 L Pulse Rhythm [Apical] Pulse Strength [Apical] Respiratory Rate 15 17 11 L Respiratory Effort / Characteristics Respiratory Depth Respiratory Pattern Blood Pressure Blood Pressure [Right Arm] Blood Pressure Mean Blood Pressure Mean [Right Arm] Blood Pressure Position Pulse Oximetry 93 97 97 Oxygen Delivery Method Sepsis Recent Fever Within 48 Hours Sepsis New/Unexplained Change in Mental Status Sepsis Action Taken by Nursing VITALS: Vitals are noted on the nurse's note and reviewed by myself. Vital signs stable. GENERAL: Pleasant gentleman moving all extremities, in no acute distress, nondiaphoretic, well-developed well-nourished. SKIN: The skin was without rashes, erythema, edema, or bruising. There is no tenting of the skin. Capillary reflex less than 2 seconds. HEAD: Normocephalic atraumatic. EARS: External auditory canals clear EYES: Pupils equal round and reactive to light and accommodation. Conjunctivae without injection, sclerae without icterus. Extraocular movements intact. NOSE: Patent, no discharge. MOUTH: Mucous membranes moist. Pharynx without erythema or exudate. Uvula midline. Airway patent. Tongue does not deviate. NECK: Supple without nuchal rigidity. No lymphadenopathy. No thyromegaly. Cervical spine is nontender. No JVD. HEART: Regular rate and rhythm LUNGS: Clear to auscultation bilaterally without wheezes, rales or rhonchi. No retractions or accessory muscle use. ABDOMEN: Positive bowel sounds x 4. Normal tympanic percussion. Soft, tender left lower quadrant,, without masses or organomegaly. Cid sign negative. No guarding or rebound tenderness. No CVA tenderness MUSCULOSKELETAL: No muscle atrophy, erythema, or edema noted. NEURO: Patient was alert and oriented to person place and time. Normal sensation to light and sharp touch. Cranial nerves II through XII grossly intact. No pronator drift. Cerebellar exam intact. No focal neurological deficits. Course Administered Medications Discontinued Medications Clopidogrel Bisulfate (Clopidogrel Bisulfate 75 Mg Tab) 75 mg PO NOW ONE Stop: 10/21/23 01:33 Last Admin: 10/21/23 01:53 Dose: 75 mg Documented By: ANGELIKA Sodium Chloride (Nss) 500 mls @ 999 mls/hr IV .Q31M STA Stop: 10/20/23 18:20 Last Infusion: 10/20/23 23:40 Dose: Infused Documented By: Admin: 10/20/23 22:01 Dose: 999 mls/hr Documented By: KINZA Acetaminophen (Ofirmev) 1,000 mg in 100 mls @ 400 mls/hr IV NOW STA Stop: 10/20/23 22:02 Last Infusion: 10/20/23 22:29 Dose: Infused Documented By: Admin: 10/20/23 22:00 Dose: 400 mls/hr Documented By: KINZA Ioversol (Optiray 320 125ml) 117 ml IV ONCE ONE Stop: 10/20/23 21:03 Last Admin: 10/20/23 21:03 Dose: 117 ml Documented By: VASILIY Meclizine HCl (Meclizine Hcl 25 Mg Tab) 25 mg PO NOW STA Stop: 10/20/23 21:49 Last Admin: 10/20/23 21:59 Dose: 25 mg Documented By: KINZA Medical Decision Making Medical Records Attestation: I reviewed the patient's medical records. Home Medications Current Medication List: was personally reviewed by me Laboratory Data Attestation: I reviewed the patient's lab results. 10/20/23 18:50 10/20/23 18:50 Lab Results 10/20/23 10/20/23 10/20/23 Range/Units 18:50 18:52 22:54 WBC 8.21 (4.8-10.8) K/ul RBC 4.88 (4.70-6.10) M/uL Hgb 15.2 (14.0-18.0) g/dl Hct 44.4 (42.0-52.0) % MCV 91.0 (80.0-100.0) fL MCH 31.1 (25.0-34.0) pg MCHC 34.2 (32.0-36.0) g/dL RDW Std Deviation 44.3 (36.4-46.3) fL RDW Coeff of Donnell 13.3 (11.5-14.5) % Plt Count 177 (130-400) K/uL MPV 11.1 (9.4-12.4) fL Immature Gran % (Auto) 0.1 % Neut % (Auto) 60.9 % Lymph % (Auto) 30.0 % Bartholomew % (Auto) 7.2 % Eos % (Auto) 1.1 % Baso % (Auto) 0.7 % Neut # (Auto) 5.00 (1.40-6.50) K/uL Lymph # (Auto) 2.46 (1.20-3.40) K/uL Bartholomew # (Auto) 0.59 (0.11-0.59) K/uL Eos # (Auto) 0.09 (0.00-0.50) K/uL Baso # (Auto) 0.06 (0.00-0.20) K/uL Immature Gran # (Auto) 0.01 (0.01-0.20) K/uL PT 11.1 (9.0-12.0) Seconds INR 1.0 (0.9-1.1) APTT 26 (21-31) Seconds PTT Ratio 0.9 Sodium 140 (136-145) mmol/L Potassium 3.9 (3.5-5.1) mmol/L Chloride 103 (98-107) mmol/L Carbon Dioxide 30 (21-32) mmol/L Anion Gap 7 (3-11) BUN 18 (6-23) mg/dl Creatinine 0.93 (0.6-1.4) mg/dl Est Cr Clr Drug Dosing Not Reportable Est GFR ( Amer) 91.5 ml/min Est GFR (Non-Af Amer) 78.9 ml/min BUN/Creatinine Ratio 19.4 (10-20) Glucose 97 (70-99(Fasting)) mg/dl Calcium 9.6 (8.6-10.3) mg/dl Magnesium 2.1 (1.7-2.4) mg/dl Total Bilirubin 0.7 (0.2-1.0) mg/dl AST 23 (13-39) U/L ALT 14 (7-52) U/L Alkaline Phosphatase 105 H (34-104) U/L Troponin I High Sens 5.4 6.1 (0-20) pg/ml Total Protein 8.1 (6.0-8.3) gm/dl Albumin 4.4 (3.4-5.0) gm/dl Globulin 3.7 (2.5-4.0) gm/dl Albumin/Globulin Ratio 1.2 (0.9-2) Lipase 21 (11-82) U/L TSH 1.877 (0.300-4.500) uIu/ml Adenovirus (PCR) Not Detected (NotDetected) B. pertussis DNA (PCR) Not Detected (NotDetected) B.parapertussis DNA PCR Not Detected (NotDetected) C. pneumoniae DNA (PCR) Not Detected (NotDetected) Coronavirus OC43 (PCR) Not Detected (NotDetected) Coronavirus HKU1 (PCR) Not Detected (NotDetected) Coronavirus 229E (PCR) Not Detected (NotDetected) SARS-CoV-2 (PCR) Not Detected (NotDetected) Coronavirus NL63 (PCR) Not Detected (NotDetected) Human Metapneumovir PCR Not Detected (NotDetected) Influenza Type A (PCR) Not Detected (NotDetected) Influenza Type B (PCR) Not Detected (NotDetected) M. pneumoniae (PCR) Not Detected (NotDetected) Parainfluenza 1 (PCR) Not Detected (NotDetected) Parainfluenza 2 (PCR) Not Detected (NotDetected) Parainfluenza 3 (PCR) Not Detected (NotDetected) Parainfluenza 4 (PCR) Not Detected (NotDetected) RSV (PCR) Not Detected (NotDetected) Entero/Rhino (PCR) Not Detected (NotDetected) Imaging Data Attestation: I personally reviewed and interpreted this imaging study as follows: Radiologist's Impression: Head CT 10/20/23 17:50 Exam(s): CT HEAD Without Contrast EXAM: CT Head Without Intravenous Contrast CLINICAL HISTORY: Headache, dizziness. TECHNIQUE: Axial computed tomography images of the head/brain without intravenous contrast. CTDI is 60.92 mGy and DLP is 961.59 mGy-cm. Automated exposure control was utilized for the study. A dose lowering technique was utilized adhering to the principles of ALARA. COMPARISON: CT head without contrast dated 04/30/2022 FINDINGS: Brain: No intracranial hemorrhage. No significant mass-effect. No evidence for cortical infarct. Similar parenchymal involutional changes. Mild periventricular deep white matter hypodense changes noted. Ventricles: No midline shift or ventriculomegaly. Bones/joints: Unremarkable. No acute fracture. Soft tissues: Unremarkable. Sinuses: Unremarkable as visualized. No acute sinusitis. Mastoid air cells: Unremarkable as visualized. No mastoid effusion. IMPRESSION: No acute intracranial process identified. Electronically signed by: Jose Armando Diana MD 10/20/23 21:47 PM Head CTA 10/20/23 17:50 Exam(s): CTA HEAD With Contrast IV Amt: 117 cc opti 320 EXAM: CT Angiography Head With Intravenous Contrast CLINICAL HISTORY: Headache, dizziness. TECHNIQUE: Axial computed tomographic angiography images of the head with intravenous contrast. CTDI is 52.24 mGy and DLP is 26.12 mGy-cm. Automated exposure control was utilized for the study. A dose lowering technique was utilized adhering to the principles of ALARA. MIP reconstructed images were created and reviewed. CONTRAST: Patient received 117 cc opti 320 of IV contrast COMPARISON: No relevant prior studies available. 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 There is reconstitution at the cavernous segment with the artery markedly hypoplastic measuring only 1-2 mm. In the distal cavernous segment there is recurrent critical stenosis noted with the supraclinoid segment patent, presumably from collateral filling. No aneurysm. Right anterior cerebral artery: The right A1 segment is hypoplastic. The right anterior cerebral artery is patent. There is a anterior communicating artery noted. No occlusion or significant stenosis. No aneurysm. Right middle cerebral artery: The right M1 segment is patent without stenosis or occlusion. No aneurysm. Right posterior cerebral artery: There is a right posterior communicating artery noted. No occlusion or significant stenosis. No aneurysm. Right vertebral artery: Unremarkable as visualized. Left internal carotid artery: No acute findings. Intracranial segment is patent with no significant stenosis. No aneurysm. Left anterior cerebral artery: The left A1 segment is patent. The left anterior cerebral artery is patent without stenosis or occlusion. No aneurysm. Left middle cerebral artery: Unremarkable. No occlusion or significant stenosis. No aneurysm. Left posterior cerebral artery: There is a origin of the left posterior cerebral artery via the posterior communicating artery. No occlusion or significant stenosis. No aneurysm. Left vertebral artery: Unremarkable as visualized. Basilar artery: Unremarkable. No occlusion or significant stenosis. No aneurysm. Other findings: The right M2/M3 branches are patent without appreciable stenosis. IMPRESSION: 1. 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 There is reconstitution at the cavernous segment with the artery markedly hypoplastic, measuring only 1-2 mm. In the distal cavernous segment there is recurrent critical stenosis noted with the supraclinoid segment patent, presumably from collateral filling. 2. The right anterior cerebral and middle cerebral arteries are patent. 3. Otherwise negative intracranial CTA examination. Electronically signed by: Jose Armando Diana MD 10/20/23 22:00 PM Neck CTA 10/20/23 17:50 Exam(s): CTA NECK With Contrast IV Amt: 117 cc opti 320 EXAM: CT Angiography Neck With Intravenous Contrast CLINICAL HISTORY: Headache, dizziness. TECHNIQUE: Routine carotid CT angiography protocol was performed with intravenous contrast. NASCET criteria using the distal ICAs for comparison were used for evaluation of stenoses. CTDI is 19.24 mGy and DLP is 1203.44 mGy-cm. Automated exposure control was utilized for the study. A dose lowering technique was utilized adhering to the principles of ALARA. MIP reconstructed images were created and reviewed. CONTRAST: Patient received 117 cc opti 320 of IV contrast COMPARISON: None. FINDINGS: VASCULATURE: Right common carotid artery: Unremarkable. No occlusion or significant stenosis. No dissection. Right internal carotid artery: The right internal carotid artery occludes at the bifurcation and remains occluded to the skull base. Right external carotid artery: Unremarkable. No occlusion. Right vertebral artery: Unremarkable. No occlusion or significant stenosis. No dissection. Left common carotid artery: Unremarkable. No occlusion or significant stenosis. No dissection. Left internal carotid artery: Unremarkable. Extracranial segment is patent with no occlusion or significant stenosis. No dissection. Left external carotid artery: There is at least moderate narrowing with atherosclerotic disease of the proximal left external carotid artery. The distal branches are patent. Left vertebral artery: Unremarkable. No occlusion or significant stenosis. No dissection. Brachiocephalic and subclavian arteries: There is a bovine configuration of the proximal great vessels without significant ostial stenosis. Aorta: The aortic arch is patent without dissection or aneurysm. NECK: Bones/joints: Unremarkable. No acute fracture. Soft tissues: Unremarkable. Lung apices: Clear. CAROTID STENOSIS REFERENCE USING NASCET CRITERIA: % ICA stenosis = (1 - narrowest ICA diameter/diameter of distal cervical ICA) x 100. Mild - <50% stenosis. Moderate - 50-69% stenosis. Severe - 70-94% stenosis. Near occlusion - 95-99% stenosis. Occluded - 100% stenosis. IMPRESSION: 1. 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 2. The right common carotid artery is patent without stenosis. The left common and external carotid arteries are patent. No stenosis or occlusion. The vertebral arteries are codominant and are patent without stenosis or occlusion. Electronically signed by: Jose Armando Diana MD 10/20/23 22:03 PM Chest CTA 10/20/23 17:51 Exam(s): CTA CHEST IV Amt: 117 cc opti 320 EXAM: CT Chest With Intravenous Contrast CLINICAL HISTORY: Chest Pain, eval for PE. TECHNIQUE: Axial computed tomographic images of the chest with intravenous contrast. CTDI is 52.24 mGy and DLP is 26.12 mGy-cm. Automated exposure control was utilized for the study. A dose lowering technique was utilized adhering to the principles of ALARA. COMPARISON: No relevant prior studies available. FINDINGS: Pulmonary arteries: There is no evidence for pulmonary embolism. Aorta: Mild atherosclerotic calcification of the aorta. No dissection or aneurysm. Lungs: Curvilinear changes noted in the right lower lobe. No focal airspace consolidation. Pleural space: Unremarkable. No significant effusion. No pneumothorax. Heart: The cardiac chambers are normal in caliber. Mild coronary artery calcification. No pericardial effusion. Mediastinum: There is a soft tissue density structure in the anterior mediastinum measuring 2.2 x 1.6 x 3 cm, somewhat atypical for residual thymic tissue. Bones/joints: Degenerative changes of the left shoulder. A right shoulder arthroplasty is noted. No acute fracture. No dislocation. Soft tissues: Unremarkable. Lymph nodes: No mediastinal or hilar adenopathy. IMPRESSION: There is no evidence for pulmonary embolism. Electronically signed by: Jose Armando Diana MD 10/20/23 21:55 PM Abdomen/Pelvis CT 10/20/23 21:48 Exam(s): CT ABDOMEN + PELVIS Without Contrast EXAM: CT Abdomen and Pelvis Without Intravenous Contrast CLINICAL HISTORY: LLQ pain. TECHNIQUE: Axial computed tomography images of the abdomen and pelvis without intravenous contrast. CTDI is 27.67 mGy and DLP is 1447.08 mGy-cm. Automated exposure control was utilized for the study. A dose lowering technique was utilized adhering to the principles of ALARA. COMPARISON: No relevant prior studies available. FINDINGS: Lung bases: Curvilinear changes noted at the lung bases. No consolidation. ABDOMEN: Liver: Unremarkable. Gallbladder and bile ducts: Cholecystectomy. No ductal dilation. Pancreas: Unremarkable. No ductal dilation. Spleen: Unremarkable. No splenomegaly. Adrenals: Unremarkable. No mass. Kidneys and ureters: There is excreted contrast in the renal collecting systems and ureters. No hydronephrosis or obstructing nephrolithiasis. Stomach and bowel: Stomach is mildly distended with retained oral contents. No gastric mucosal thickening. No evidence for focal high- grade bowel obstruction. Moderate stool burden throughout the colon is noted. Diverticulosis of the sigmoid colon. No obvious diverticulitis. PELVIS: Appendix: A normal caliber appendix is noted posterior to the cecum. Bladder: The bladder is mild to moderately distended with excreted contrast in the posterior aspect of the bladder. No bladder wall thickening. No stones. Reproductive: Unremarkable as visualized. ABDOMEN and PELVIS: Intraperitoneal space: Unremarkable. No free air. No significant fluid collection. Bones/joints: A left total hip arthroplasty is noted. Degenerative changes of the lumbar spine. No acute fracture. No dislocation. Soft tissues: Unremarkable. Vasculature: Atherosclerotic calcification of the normal caliber aorta. No abdominal aortic aneurysm. Lymph nodes: Unremarkable. No enlarged lymph nodes. IMPRESSION: No evidence for focal high-grade bowel obstruction. Moderate stool burden throughout the colon is noted. Diverticulosis of the sigmoid colon. No obvious diverticulitis. No free intraperitoneal fluid or pneumoperitoneum. Electronically signed by: Jose Armando Diana MD 10/21/23 00:13 AM MDM Narrative Prior records/ancillary studies reviewed and summarized above. Nursing notes reviewed. Additional history obtained from family. The patient's history was concerning for headache, dizziness, neck pain, chest pain, abdominal pain. Differential diagnosis: Etiologies such as metabolic, infection, hypo/hyperglycemia, electrolyte abnormalities, cardiac sources, intracerebral event, toxicologic, neurologic, as well as others were entertained. Physical examination: As above. ER treatment provided: IV Lock An order was placed for continuous cardiac monitoring. The monitor shows a rate of 50-80 with a sinus rhythm per my interpretation. IV fluids Tylenol meclizine ordered On reassessment the patient felt better. Diagnostics interpretation by me: ECG: Ordered for dizziness EKG: Poor baseline, right bundle, no acute ST-T wave changes, rate of 61. Impression normal sinus rhythm poor baseline right bundle branch block independent interpreted by myself The labs Independently Interpreted by myself revealed stable H&H, negative troponin Imaging studies: Chest x-ray with no acute consolidation, pneumothorax or free air per my independent interpretation CT is reviewed and read by radiology as above. Consultation: A consultation was placed with the hospitalist. The case was discussed and diagnostics were reviewed. The patient was evaluated in the ER for further treatment. Exam and history seem consistent with headache and dizziness with known carotid occlusion. Patient's family doctor sent him in for stroke rule out. Medicine was consulted and the case was discussed. Patient be admitted to the hospital service for further evaluation and workup. Patient had no signs of stroke on exam. Has been symptomatic for 2 weeks. He was neurovascularly and neurologically intact. Patient is agreeable treatment plan of admission. By the evaluation outlined above emergent etiologies such as infection, electrolyte abnormalities, cardiac sources, toxologic, abnormalities blood glucose, metabolic, as well as others were deemed relatively unlikely. The pt informed about the findings as listed above. All questions were answered and pleased with the treatment. The chart was completed utilizing Goji Speech voice recognition software. Grammatical errors, random word insertions, pronoun errors, and incomplete sentences are an occassional consequence of this system due to software limitations, ambient noise, and hardware issues. Any formal questions or concerns about the content, text, or information contained within the body of this dictation should be directly addressed to the physician medical receptionist assistant for clarification. Impression & Plan Headache, Dizziness Discharge Plan Visit Data Chief Complaint: Illness Stated Complaint: HEADACHES, SOB, SWEATS, DIZZY ED Provider: Dc Morris ED Midlevel Provider: Julianne Ortega Discharge Problem: Headache, Dizziness Patient Disposition: Admitted As Inpatient Condition: Good Discharge Instructions Interventions: ED Discharge Assessment Last Done: 10/21/23 01:15 Discharge Problem: Headache Qualifiers: Headache type: unspecified Headache chronicity pattern: acute headache I ntractability: not intractable Qualified Code(s): R51.9 - Headache, unspecified
--- NOTE | 2023-10-21 00:15 | CT Scan Report ---
Exam(s): CT ABDOMEN + PELVIS Without Contrast EXAM: CT Abdomen and Pelvis Without Intravenous Contrast CLINICAL HISTORY: LLQ pain. TECHNIQUE: Axial computed tomography images of the abdomen and pelvis without intravenous contrast. CTDI is 27.67 mGy and DLP is 1447.08 mGy-cm. Automated exposure control was utilized for the study. A dose lowering technique was utilized adhering to the principles of ALARA. COMPARISON: No relevant prior studies available. FINDINGS: Lung bases: Curvilinear changes noted at the lung bases. No consolidation. ABDOMEN: Liver: Unremarkable. Gallbladder and bile ducts: Cholecystectomy. No ductal dilation. Pancreas: Unremarkable. No ductal dilation. Spleen: Unremarkable. No splenomegaly. Adrenals: Unremarkable. No mass. Kidneys and ureters: There is excreted contrast in the renal collecting systems and ureters. No hydronephrosis or obstructing nephrolithiasis. Stomach and bowel: Stomach is mildly distended with retained oral contents. No gastric mucosal thickening. No evidence for focal high- grade bowel obstruction. Moderate stool burden throughout the colon is noted. Diverticulosis of the sigmoid colon. No obvious diverticulitis. PELVIS: Appendix: A normal caliber appendix is noted posterior to the cecum. Bladder: The bladder is mild to moderately distended with excreted contrast in the posterior aspect of the bladder. No bladder wall thickening. No stones. Reproductive: Unremarkable as visualized. ABDOMEN and PELVIS: Intraperitoneal space: Unremarkable. No free air. No significant fluid collection. Bones/joints: A left total hip arthroplasty is noted. Degenerative changes of the lumbar spine. No acute fracture. No dislocation. Soft tissues: Unremarkable. Vasculature: Atherosclerotic calcification of the normal caliber aorta. No abdominal aortic aneurysm. Lymph nodes: Unremarkable. No enlarged lymph nodes. IMPRESSION: No evidence for focal high-grade bowel obstruction. Moderate stool burden throughout the colon is noted. Diverticulosis of the sigmoid colon. No obvious diverticulitis. No free intraperitoneal fluid or pneumoperitoneum. Electronically signed by: Jose Armando Diana MD 10/21/23 00:13 AM
--- NOTE | 2023-10-21 00:17 | Emergency Department Note ---
ED Visit Note The patient was seen and examined with charanjit. I agree with the history, physical and findings. Please see the note for disposition and details. .
[2023-10-21] MEDS ORDERED: ACETAMINOPHEN 325 MG TAB PO PRN (01:14)
[2023-10-21] MEDS ORDERED: ONDANSETRON INJ 2 MG/ML 2 ML VIAL IV PRN (01:14)
[2023-10-21] MEDS ORDERED: POLYETHYLENE (MIRALAX) 17 GM PACK PO PRN (01:14)
[2023-10-21] MEDS: CLOPIDOGREL BISULFATE 75 MG TAB PO ONE (01:53)
[2023-10-21 05:16] LABS: Appearance Urine Clear (Clear); Bilirubin Urine Negative (Negative); Blood Urine Negative (Negative); Color Urine Yellow; Glucose Urine UA Negative (Negative); Ketones Urine Negative (Negative); Leukocyte Esterase Urine Negative (Negative); Nitrite Urine Negative (Negative); Protein Urine Negative (Negative); Specific Gravity Urine > 1.045 (1.000-1.030); Urobilinogen Urine Negative (Negative)
[2023-10-21 06:34] LABS: Basophils # (auto) 0.05 K/uL (0.00-0.20); Basophils % (auto) 0.8 %; Eosinophils # (auto) 0.14 K/uL (0.00-0.50); Eosinophils % (auto) 2.2 %; Hemoglobin 13.3 g/dl (14.0-18.0); Immature Granulocytes # (auto) 0.01 K/uL (0.01-0.20); Immature Granulocytes % (auto) 0.2 %; Lymphocytes # (auto) 1.92 K/uL (1.20-3.40); Lymphocytes % (auto) 30.5 %; Mean Corpuscular Hemoglobin 30.8 pg (25.0-34.0); Mean Corpuscular Hgb Conc 34.1 g/dL (32.0-36.0); Mean Corpuscular Volume 90.3 fL (80.0-100.0); Monocytes # (auto) 0.61 K/uL (0.11-0.59); Monocytes % (auto) 9.7 %; Neutrophils # (auto) 3.56 K/uL (1.40-6.50); Neutrophils % (auto) 56.6 %; Platelet Count 143 K/uL (130-400); RDW Coefficient of Variation 13.2 % (11.5-14.5); RDW Standard Deviation 43.7 fL (36.4-46.3); Red Blood Count 4.32 M/uL (4.70-6.10); White Blood Count 6.29 K/ul (4.8-10.8)
--- NOTE | 2023-10-21 06:53 | XRay Report ---
XR chest 1V portable HISTORY: 78 years-old Male sob acute shortness of breath COMPARISON: CTA chest of same day TECHNIQUE: AP view of the chest FINDINGS: Cardiomediastinal and hilar silhouettes are within normal limits. No pneumothorax, pleural effusion o r airspace consolidation. Suggestion of mild pulmonary emphysema. Right shoulder arthroplasty. IMPRESSION: No acute process. ACT 112: Negative or not required by law. The above report was generated using voice recognition software. It may contain grammatical, syntax o r spelling errors. Electronically signed by: Franck Fan M.D. 10/21/2023 6:51 AM
[2023-10-21 07:04] LABS: Bilirubin,Total 0.6 mg/dl (0.2-1.0); Potassium 3.5 mmol/L (3.5-5.1)
[2023-10-21 07:10] LABS: Albumin Globulin Ratio 1.4 (0.9-2); BUN Creatinine Ratio 24.4 (10-20); Est GFR (African American) 98.9 ml/min; Est GFR (Non-African American) 85.3 ml/min; Globulin 2.8 gm/dl (2.5-4.0); Total Protein 6.8 gm/dl (6.0-8.3)
[2023-10-21] MEDS ORDERED: VALSARTAN/HCTZ 160/12.5MG TAB PO SCH (09:00)
[2023-10-21] MEDS: NALTREXONE HCL 50 MG TAB PO SCH (10:27)
[2023-10-21] MEDS: PREGABALIN 75 MG CAP PO SCH (10:27)
[2023-10-21] MEDS: ENOXAPARIN INJ 40 MG/0.4 ML SYR SQ SCH (10:27)
[2023-10-21] MEDS: ATORVASTATIN 40 MG TAB PO SCH (10:28)
[2023-10-21] MEDS: CLOPIDOGREL BISULFATE 75 MG TAB PO SCH (10:28)
[2023-10-21] MEDS: amLODIPine BESYLATE 5 MG TAB PO SCH (10:29)
[2023-10-21 10:39] VITALS: RESP 16; O2SAT 99
--- NOTE | 2023-10-21 10:51 | Neurology Consultation ---
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 Patient's neurological examination reveals a prob able sensory ataxia. His mentation is intact, speech nondysarthric, no aphasia, no hemiparesis or obvious focal findings. His CT of the head including CTA of the head and neck are negative for hemorrhage or acute process and revealed the chronically occluded right internal carotid artery. Follow-up with results of brain MRI. Patient should continue with daily low- dose aspirin and atorvastatin. Current dosage seems appropriate, recent LDL 42, goal 70 or less. Continue cardiac monitoring. Consider 30-day mobile cardiac outpatient telemetry. Continue management of hypertension per protocol. Patient may require additional medical workup for dyspnea on exertion, bradycardia. I will advise further if necessary depending on MRI results. Please call me with any questions. History of Present Illness Reason for Consultation: TIA? Requesting Physician: Cordelia Attending Physician: Chandler Nowak MD History of Present Illness The patient is a 78-year-old [place] with a known history of chronically occluded right internal carotid artery without associated stroke, bilateral macular degeneration, worse on the right, chronic dizziness, chronic neck pain, history of lumbar spine surgery to address disc herniation, long-term heavy alcohol consumption, about 1 gallon of rum for several decades although stopped 3 years ago, reported history of neuropathy, impaired balance. Has been complaining of an escalation in left-sided neck pain, posterior headache, and blurry vision and was told to present to the emergency department for more immediate evaluation. He has been afebrile. His blood pressure has been intermittently hypertensive, otherwise normotensive. He has bradycardia as well as sleep apnea and informs me that he started CPAP a few months ago. He continues to endorse a feeling of dizziness that is worse with sitting up and standing, but denies true vertigo. He denies experiencing any diplopia. No dysarthria. No hemiparesis or focal weakness. A CT of the head was negative for hemorrhage or acute process. A CTA of the head and neck revealed a chronic occlusion of the right internal carotid artery with distal reconstitution. This artery is occluded from the skull base to the bifurcation. The remaining vessels are patent. I did independently review these images. This arterial occlusion was seen as well on a previous MRA of the head and neck done in April 2022. A brain MRI at that time was negative for acute infarct or other acute process. I reviewed these images as well. His electrocardiogram has revealed a junctional rhythm, low voltage QRS, right bundle branch block. A previous ECG completed yesterday revealed significant sinus bradycardia with first-degree AV block, right bundle branch block, 42 bpm. Allergies Allergy/AdvReac Type Severity Reaction Status Date / Time Penicillins Allergy Severe Anaphylaxis Verified 10/20/23 21:46 oxycodone AdvReac Intermediate gi upset Verified 10/20/23 21:46 Home Medications Medication Instructions Recorded Confirmed Type vit C 250 mg-vit E 90 mg-zinc 40 1 tab PO BID 04/30/19 10/20/23 History mg-copper 1 [id number]-snzzep capsule (PreserVision AREDS-2) cholecalciferol (vitamin D3) 50 50 mcg PO QAM 11/26/21 10/20/23 History mcg (2,000 unit) capsule naltrexone 50 mg tablet 50 mg PO QAM 11/26/21 10/20/23 History amlodipine 10 mg tablet 10 mg PO QAM #90 tabs 01/19/22 10/20/23 Rx atorvastatin 40 mg tablet 40 mg PO QAM #90 tabs 05/05/22 10/20/23 Rx valsartan 160 1 tab PO DAILY #90 tabs 08/27/22 10/20/23 Rx mg-hydrochlorothiazide 12.5 mg tablet pregabalin 75 mg capsule (Lyrica) 75 mg PO BID #30 caps 12/01/22 10/20/23 Rx aspirin 81 mg tablet,delayed 81 mg PO DAILY 04/11/23 10/20/23 History release (Adult Aspirin Regimen) mecobalamin (vitamin B12) 1,000 1,000 mcg sublingual DAILY 04/11/23 10/20/23 History mcg disintegrating tablet,sublingual Patient History Medical History Bradycardia Headache Stroke-like symptoms Macular degeneration Anxiety and depression Neuropathy History of syncope Remote episode several years ago > felt "related to dehydration" PTSD (post-traumatic stress disorder) Generalized osteoarthritis Hypertension Hyperlipidemia Hearing difficulty Surgical History Status post reverse total replacement of right shoulder (~12/2021) History of arthroscopy LEFT KNEE History of herniorrhaphy History of cholecystectomy History of tooth extraction History of tonsillectomy H/O eye surgery MACULAR PUCKER H/O sinus surgery History of cataract surgery RT H/O colonoscopy Colonoscopy (09/25/21): MAC at [facility]. Repeat 5 yrs History of knee replacement LEFT S/P hip replacement LEFT Family History Mother Liver cancer Colorectal cancer Father Pancreatic cancer Uncle Myocardial infarction Other No family history of adverse response to anesthesia Denies family history of Ovarian cancer Prostate cancer Diabetes Breast cancer Lung cancer Stroke Social History Smoking Status: Never smoker Second Hand Exposure: No; Do You Dip or Chew Tobacco: No; Hx Alcohol Use: Yes Alcohol type: wine Alcohol Intake Frequency: 4 or More x per/Week Hx Substance Use: No Preferred Language: [place]guill[place] Communication Ability: Effective Visual Impairment: Limited Hearing Ability: Normal Senior Branch Manager Required: No Beliefs That Will Affect Care: None marital status: Current Living Situation: Spouse current occupational status: retired How many Children do You have: 0 How many Children do You have Comment: 3 step children Feels Safe at Home: Yes Safety Concerns: Feels Safe At This Time Childhood Exposure to Second-Hand Smoke: Yes caffeine: Yes Dental Care, Regularly: No Physical Activity Frequency: Daily Physical Activity Frequency Comment: walks twice a day Seatbelt Use: always Sunscreen Use: No (wears a hat) Assistive Devices: Cane, CPAP and Glasses Review of Systems Constitutional: + fatigue; no fever and no chills Ear, Nose, Mouth, Throat: no ear pain and no hearing loss Respiratory: + dyspnea Cardiovascular: + chest pain and + palpitations Gastrointestinal: no nausea and no vomiting Genitourinary: no dysuria or no urinary incontinence Musculoskeletal: + neck pain Integumentary: no rash and no lesions Neurologic: as per Subjective / HPI, + gait abnormality, + unsteadiness, + dizziness and + headache(s); no tremor(s), no abnormal speech and no memory loss Psychiatric: no depression and no anxiety Hematologic / Lymphatic: no easy bleeding and no easy bruising Exam (Neuro) Constitutional: well developed; no acute distress Eyes: PERRL and EOM intact bilaterally; + abnormal visual field confrontation (Patchy visual field loss right eye greater than left, poor visual acuity ri) and no nystagmus Neurologic: Oriented to:: Person, Place and Time Memory: Short Term Intact and Remote Intact Attention: Span Intact and Concentration Intact Speech Fluency: negative Dysarthria or Dysfluency Speech Aphasia: negative Aphasia Fund of Knowledge: Current Events, Past History and Vocabulary Cranial Nerves: Normal III, IV, , V, VII, VIII, IX, X, XI and XII; Abnorm II Motor Strength: Normal Lower Extremities and Normal Upper Extremities Motor Tone: Normal Lower Extremities and Normal Upper Extremities Muscle Bulk/Involuntary Movements: No Involuntary Movements; negative Muscle Atrophy Sensation: Light Touch Intact and Pain/Temperature Intact; negative Vibration Intact or Proprioception Intact Coordination: Normal and Limited Balance; negative Dysdiadochokinesia, Finger-Nose Abnormal or Heel-Martínez Abnormal Deep Tendon Reflexes: Rt Triceps: 1+, Lt Triceps: 1+, Rt Biceps: 1+, Lt Biceps: 1+, Rt Brachioradialis: 1+, Lt Brachioradialis: 1+, Rt Patellar: 1+, Lt Patellar: 1+, Rt Ankle: 0 and Lt Ankle: 0 Special Tests: negative Babinski Present Gait: Ataxic, Wide-Based Results & Data Vital Signs (Past 12 Hours) Vital Signs Pulse Pulse Resp BP BP Pulse Ox Pulse Ox 10/21/23 08:44 43 L 10/21/23 07:02 53 L 20 136/73 96 10/21/23 06:00 56 L 13 132/62 92 10/21/23 05:01 64 16 167/83 H 97 10/21/23 04:00 52 L 13 145/72 H 98 10/21/23 03:48 94 10/21/23 00:50 51 L 16 94 10/21/23 00:40 45 L 14 94 10/21/23 00:30 53 L 11 L 97 10/21/23 00:20 61 17 97 10/21/23 00:10 53 L 15 93 10/21/23 00:00 47 L 14 132/69 95 10/20/23 23:50 51 L 18 94 10/20/23 23:40 45 L 21 94 10/20/23 23:32 48 L 17 134/65 93 10/20/23 23:30 50 L 20 93 10/20/23 23:20 49 L 13 94 10/20/23 23:10 53 L 13 96 10/20/23 23:00 52 L 19 94 10/20/23 22:50 48 L 15 96 10/20/23 22:44 55 L 10 L 139/74 96 O2 Del Method O2 Del Method 10/21/23 08:44 10/21/23 07:02 Room Air 10/21/23 06:00 Room Air 10/21/23 05:01 Room Air 10/21/23 04:00 Room Air 10/21/23 03:48 Room Air 10/21/23 00:50 10/21/23 00:40 10/21/23 00:30 10/21/23 00:20 10/21/23 00:10 10/21/23 00:00 10/20/23 23:50 10/20/23 23:40 10/20/23 23:32 10/20/23 23:30 10/20/23 23:20 10/20/23 23:10 10/20/23 23:00 10/20/23 22:50 10/20/23 22:44 Laboratory Results WBC 6.29, hemoglobin 13.3, hematocrit 39.0, platelet count 143, sodium 138, potassium 3.5, BUN 20, creatinine 0.82, glucose 92, hemoglobin A1c 5.3, calcium 9.0, magnesium 2.1, AST 16, ALT 10, triglycerides 109, cholesterol 112, LDL 42, HDL 48, vitamin B12 520, vitamin D 21.6, TSH 1.[address] of the head including CTA of the head and neck are as described in the HPI, I independently reviewed these images as well as MRI of the brain and MRA of the head and neck completed in April 2022. Electrocardiogram is as described in the HPI. An echocardiogram completed May 23, 2023 revealed no significant change compared with her previous echo completed May 01, 2022 that had revealed normal left ventricular size a nd systolic function, EF 60 to 65%, no regional wall motion abnormalities, mild concentric LVH, mild right atrial dilation, no ASD, no obvious shunt. Coding Level of Care Code 50300 INT INP/OBS CARE 3/75MIN Diagnoses Headache R51.9 Headache chronicity pattern: acute headache Headache type: unspecified Intractability: not intractable Neck pain M54.2 Dizziness R42 History of alcohol abuse F10.11 Occlusion of right internal carotid artery I65.21 Neuropathy G62.9 Time Spent (min) 80 Comment Total time includes patient contact, chart review, counseling, note preparation (1) Headache Headache chronicity pattern: acute headache Headache type: unspecified Int ractability: not intractable Qualified Code(s): R51.9 - Headache, unspecified
--- NOTE | 2023-10-21 10:57 | Electrocardiogram Report ---
Test Reason : Blood Pressure : / mmHG Vent. Rate : 042 BPM Atrial Rate : 042 BPM P-R Int : 240 ms QRS Dur : 132 ms QT Int : 466 ms P-R-T Axes : 044 036 005 degrees QTc Int : 389 ms Marked sinus bradycardia with 1st degree A-V block Right bundle branch block Abnormal ECG When compared with ECG of 30-APR-2022 16:56, HR has decreased by 11 bpm Otherwise no significant change Confirmed by Everardo Choudhury ([id number]) on 10/21/2023 10:57:43 AM Referred By: Anthony Dallas Confirmed By:Everardo Choudhury
--- NOTE | 2023-10-21 11:02 | Electrocardiogram Report ---
Test Reason : Blood Pressure : / mmHG Vent. Rate : 061 BPM Atrial Rate : 000 BPM P-R Int : 000 ms QRS Dur : 118 ms QT Int : 458 ms P-R-T Axes : 000 000 034 degrees QTc Int : 461 ms Probable Sinus rhythm Low voltage QRS Right bundle branch block Abnormal ECG When compared with ECG of 20-OCT-2023 18:38, HR has increased by 19 bpm Confirmed by Everardo Choudhury ([id number]) on 10/21/2023 11:01:57 AM Referred By: Anthony Dallas Confirmed By:Everardo Choudhury
--- NOTE | 2023-10-21 12:30 | Magnetic Resonance Report ---
MR brain wo con HISTORY: 78 years-old Male dizziness, headache acute headache with dizziness. History of chronic rig ht ICA occlusion. COMPARISON: Head CT 10/20/2023, brain MRI 04/30/2022 TECHNIQUE: Multiplanar multisequence MRI of the brain was obtained without the use of IV contrast. FINDINGS: There is no mass, hematoma, midline shift, or acute infarct. The paranasal sinuses are clear. The mas toid air cells are clear. The ventricles and sulci demonstrate mild age-related involutional changes. A few scattered foci of T2 hyperintensity seen within the periventricular and subcortical white wojciech er are nonspecific but suggestive of mild microvascular ischemic changes. Chronic right ICA occlusion . Prior right lens replacement. No abnormal enhancement. IMPRESSION: 1. No acute intracranial abnormality. No acute or subacute infarct. 2. Chronic right ICA occlusion. 3. Mild chronic microvascular ischemic disease. ACT 112: Negative or not required by law. The above report was generated using voice recognition software. It may contain grammatical, syntax o r spelling errors. Electronically signed by: Franck Fan M.D. 10/21/2023 12:29 PM
[2023-10-21] MEDS: POLYETHYLENE (MIRALAX) 17 GM PACK PO SCH (13:57)
[2023-10-21] MEDS: hydroCHLOROthiazide 25 MG TAB PO SCH (13:57)
[2023-10-21] MEDS: VALSARTAN 80 MG TAB PO SCH (13:58)
--- NOTE | 2023-10-21 16:44 | Hospitalist Progress Note ---
Date of Service October 21, 2023 Assessment & Plan (1) Dizziness: Plan: Resolved at the time of my examination. Fortunately, brain MRI scan is negative for acute CVA. Neurology consultation and recommendations appreciated. He was switched to Plavix on admission but will be switched back to aspirin therapy along with his statin therapy. (2) GEIGER (dyspnea on exertion): Plan: No overt CHF on chest x-ray or physical examination. This probably is due to very poor cardiovascular conditioning. (3) Occlusion of right internal carotid artery: Plan: Chronic. No intervention needed at this time (4) Hypertension: Plan: Stable. Continue current medical management (5) Hyperlipidemia: Plan: Stable. Continue statin therapy (6) PTSD (post-traumatic stress disorder): Plan: The supportive care. Outpatient management per PCP Plan Hopeful discharge to home tomorrow, October 22 Admission and Anticipated Discharge Date Admission Date: October 21, 2023 Subjective Alert and oriented at the time of my examination this morning. He has multiple complaints but no significant findings. Fortunately, the brain MRI scan is negative for anything acute. Neurology consultation appreciated. Neurology recommends the patient remain on aspirin and atorvastatin. Right internal carotid artery occlusion is not acute. Chest CTA negative for PE. Head CT scan is negative. OT and PT assessments requested. He can be discharged tomorrow, October 22. Case management evaluation requested Review of Systems 2 Review of Systems: Constitutional-no fever or chills. Multiple nonspecific complaints ENT-no blurred vision, no double vision, no epistaxis, no sore throat Respiratory-no cough, no wheezing, no shortness of breath Cardiac-no palpitations, no chest pain, no syncope GI-no nausea, vomiting, diarrhea, melena, hematochezia -no urinary retention, no urinary incontinence, no dysuria, no hematuria Musculoskeletal-no joint pain, no muscle tenderness Skin-no bruising, no rashes, no pruritus Neuro-no isolated weakness, no paresthesia, no weakness Psych-no depression, no anxiety Physical Exam 2 Physical Exam: General-alert and oriented x3, no fever, no chills HEENT-head atraumatic and normocephalic, pupils equal and reactive to light, extraocular muscles intact Neck-no lymphadenopathy or thyromegaly, trachea midline Chest-inspiratory rales at the right base only. No rhonchi. No wheezing. i Cardiac-regular rate and rhythm, normal S1 and S2 Abdomen-normal bowel sounds, nontender, no hepatosplenomegaly Extremities-no cyanosis, clubbing, or edema Neuro-cranial nerves II through XII intact, motor and sensory function within normal limits, strength symmetrical, no focal deficits Psych-normal affect, normal mood although he has multiple complaints Results & Data Results & Data Vital Signs (Past 12 Hours) Vital Signs Pulse Pulse Resp BP BP Pulse Ox O2 Del Method 10/21/23 10:27 51 L 16 131/63 99 Nasal Cannula 10/21/23 10:00 60 16 99 Nasal Cannula 10/21/23 09:02 67 12 168/94 H 99 Nasal Cannula 10/21/23 09:00 53 L 16 97 Nasal Cannula 10/21/23 08:44 43 L 10/21/23 08:00 54 L 16 199/83 H 95 Nasal Cannula 10/21/23 07:02 53 L 20 136/73 96 Room Air 10/21/23 07:00 58 L 19 136/73 95 Nasal Cannula 10/21/23 06:00 56 L 13 132/62 92 Room Air 10/21/23 05:01 64 16 167/83 H 97 Room Air O2 Flow Rate 10/21/23 10:27 2 10/21/23 10:00 2 10/21/23 09:02 2 10/21/23 09:00 2 10/21/23 08:44 10/21/23 08:00 2 10/21/23 07:02 10/21/23 07:00 2 10/21/23 06:00 10/21/23 05:01 Laboratory Results 10/21/23 06:02 10/21/23 06:02 PG Care Time/CCT Total # of Minutes Spent Total Time Spent with Patient: Total time spent is greater than 50% in coordination of care (as documented) at patient's floor/unit and/or counseling patient: Coding Level of Care Code 30758 SUB INP/OBS CARE 3/50MIN Diagnoses Dizziness R42 GEIGER (dyspnea on exertion) R06.09 Occlusion of right internal carotid artery I65.21 Hypertension I10 Hyperlipidemia E78.5 PTSD (post-traumatic stress disorder) F43.10
--- NOTE | 2023-10-21 17:25 | Discharge Summary ---
Date of Service October 21, 2023 Admission HPI Per Admitting Provider Reynold Yeung is a 78 year-old male with a past medical history of PAD, HTN, HLD, mitral regurgitation who presents to the ED for concerns of ongoing headache and some dizziness. Notes that he went to his eye doctor as he was wondering if his vision was worsening to cause a headache, notes his eye doctor evaluated him and recommended he see his PCP. He was evaluated at his PCP who had concern that given his known right ICA occlusion, had concern of TIA/stroke. Patient state he has about 1 week of symptoms, notes his headache is "all over" his head and usually responds to aspirin for pain relief. He has had some intermittent shortness of breath but this has seemed unrelated. His denies any slurred speech or confusion. He states the only change in medication was his Lyrica was increased about 1 month ago. Notes some intermittent abdominal discomfort, states he has had issues with constipation before. ED Course: -CTA head/neck -CT brain, CT A/P, Chest XR -Respiratory biofire Principal Diagnosis Headache, dizziness Discharge Exam General-alert and oriented x3, no fever, no chills HEENT-head atraumatic and normocephalic, pupils equal and reactive to light, extraocular muscles intact Neck-no lymphadenopathy or thyromegaly, trachea midline Chest-inspiratory rales at the right base only. No rhonchi. No wheezing. i Cardiac-regular rate and rhythm, normal S1 and S2 Abdomen-normal bowel sounds, nontender, no hepatosplenomegaly Extremities-no cyanosis, clubbing, or edema Neuro-cranial nerves II through XII intact, motor and sensory function within normal limits, strength symmetrical, no focal deficits Psych-normal affect, normal mood although he has multiple complaints Discharge Data Allergies Allergy/AdvReac Type Severity Reaction Status Date / Time Penicillins Allergy Severe Anaphylaxis Verified 10/20/23 21:46 oxycodone AdvReac Intermediate gi upset Verified 10/20/23 21:46 Consultations 10/20/23 23:53 ED Decision to Admit Stat 10/21/23 01:14 Consult Neurology Routine Ordered Studies 10/20/23 17:50 CT head/brain wo con Stat CTA head w con [CT angio head w con] Stat CTA neck with con [CT angio neck with con] Stat 10/20/23 17:51 CT angio chest PE protocol Stat 10/20/23 21:48 CT abd pelvis wo con Stat 10/21/23 09:33 MRI Brain [MR brain wo con] Urgent Hospital Course (1) Dizziness: Resolved at the time of my examination. Fortunately, brain MRI scan is negative for acute CVA. Neurology consultation and recommendations appreciated. He was switched to Plavix on admission but will be switched back to aspirin therapy along with his statin therapy. (2) GEIGER (dyspnea on exertion): No overt CHF on chest x-ray or physical examination. This probably is due to very poor cardiovascular conditioning. 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 No intervention needed at this time (4) Hypertension: Stable. Continue current medical management (5) Hyperlipidemia: Stable. Continue statin therapy (6) PTSD (post-traumatic stress disorder): The supportive care. Outpatient management per PCP Plan The patient decided he wants to go home this evening, October 21. Nursing staff states he is ambulating well without assistance Total Time Total Time Spent Total Time Spent (In Minutes): 45 minutes Discharge Plan Discharge Items Patient Disposition: Home - Self-Care Reason For Visit: DIZZINESS Discharge Diagnosis: Dizziness and headache Condition on Discharge: Good Activity: Resume your previous activity Non-emergency contact: Primary Care Provider Call non-emergency contact if: your symptoms worsen Follow-up/Referrals: Olu Magallanes DO [Primary Care Provider] - Diet: Regular and Heart Healthy Addtl Attending Provider Instructions: Home medications remain the same Pending Studies at Discharge: No Stand-Alone Forms: My [facility] [employer], Smoking Cessation Medications and DC Order Prescriptions: Continued pregabalin [Lyrica] 75 mg capsule 75 mg PO BID Qty: 30 2RF PreserVision AREDS-2 [id number] lt-teht-ur-mg capsule 1 tab PO BID amlodipine 10 mg tablet 10 mg PO QAM Qty: 90 3RF valsartan-hydrochlorothiazide 160-12.5 mg tablet 1 tab PO DAILY Qty: 90 3RF atorvastatin 40 mg tablet 40 mg PO QAM Qty: 90 0RF aspirin [Adult Aspirin Regimen] 81 mg tablet,delayed release (DR/EC) 81 mg PO DAILY mecobalamin (vitamin B12) 1,000 mcg tablet,disintegrating 1,000 mcg sublingual DAILY Rx Instructions: place tablet under tongue and allow to dissolve for at least30 secs before swallowing cholecalciferol (vitamin D3) 50 mcg (2,000 unit) capsule 50 mcg PO QAM naltrexone 50 mg Tablet 50 mg PO QAM Discharge Orders: Discharge Order (Routine); Ordered 10/21/23 Ordered By: Chandler Nowak Admission Data Admit Date/Time: 10/21/23 00:35 Attending Provider: Chandler Nowak Admit Provider: Vy Storey Primary Care Provider: Olu Magallanes Other Providers: Olu Guillory; Bereket Layton Coding Level of Care Code 90302 INP/OBS DISCH >30 MIN Diagnoses Dizziness R42 GEIGER (dyspnea on exertion) R06.09 Occlusion of right internal carotid artery I65.21 Hypertension I10 Hyperlipidemia E78.5 PTSD (post-traumatic stress disorder) F43.10
[2023-10-21 18:11] VITALS: BP 136/73; PULSE 53
--- NOTE | 2023-10-22 05:52 | Billing Data ---
Date of Service October 22, 2023 Coding Level of Care Code 37225 INT INP/OBS CARE
== END 2023-10-21 18:06 | disposition home or self-care (01) ==
LOC: EDINP 17:32 → ED 17:32 → SUATTDRO 10-21 00:35 → EDINP 10-21 01:15